=== PATIENT | female | born 1945 | race African-American/Black ===

== ENCOUNTER 2016-12-03 10:36 | Day surgery (SDC) | payer MEDICARE, MEDICAID ==
[2016-12-03] MEDS ORDERED: Pembrolizumab 200 MG in Sodium Chloride 0.9% 250 ML 250 ML IV SCH (11:00)
[2016-12-03 11:03] VITALS: BP 102/71
[2016-12-03] MEDS ORDERED: Sodium Chloride 0.9% 20 ML ONE (12:13)
== END 2016-12-03 12:30 | disposition home or self-care (01) ==
LOC: ONC/OP 10:36
PROVIDERS: ATTEND Internal Medicine Medical Oncology
DX: Z51.11 Encounter for antineoplastic chemotherapy (principal); C34.31 Malignant neoplasm of lower lobe, right bronchus or lung; C34.11 Malignant neoplasm of upper lobe, right bronchus or lung; C34.12 Malignant neoplasm of upper lobe, left bronchus or lung; M06.9 Rheumatoid arthritis, unspecified; I10 Essential (primary) hypertension; E78.00 Pure hypercholesterolemia, unspecified; M10.9 Gout, unspecified; J45.909 Unspecified asthma, uncomplicated; F32.9 Major depressive disorder, single episode, unspecified; F41.9 Anxiety disorder, unspecified; K21.9 Gastro-esophageal reflux disease without esophagitis; E03.9 Hypothyroidism, unspecified; I73.9 Peripheral vascular disease, unspecified; F17.210 Nicotine dependence, cigarettes, uncomplicated; Z79.52 Long term (current) use of systemic steroids; Z79.899 Other long term (current) drug therapy; Z88.5 Allergy status to narcotic agent; Z96.643 Presence of artificial hip joint, bilateral
CPT/HCPCS: 36415; 80053; 82248; 83615; 84100; 84443; 84550; 96413; A4216; J7050; J9271

== ENCOUNTER 2016-12-24 14:08 | Day surgery (SDC) | payer MEDICARE, MEDICAID ==
[2016-12-24] MEDS ORDERED: Pembrolizumab 200 MG in Sodium Chloride 0.9% 250 ML 250 ML IV SCH (14:30)
[2016-12-24] MEDS ORDERED: Sodium Chloride 0.9% 20 ML ONE (14:39)
== END 2016-12-24 16:28 | disposition home or self-care (01) ==
LOC: ONC/OP 14:08
PROVIDERS: ATTEND Internal Medicine Medical Oncology
DX: Z51.11 Encounter for antineoplastic chemotherapy (principal); C34.90 Malignant neoplasm of unspecified part of unspecified bronchus or lung; J45.909 Unspecified asthma, uncomplicated; E78.00 Pure hypercholesterolemia, unspecified; E07.9 Disorder of thyroid, unspecified; M10.9 Gout, unspecified; M06.9 Rheumatoid arthritis, unspecified; F17.200 Nicotine dependence, unspecified, uncomplicated; K21.9 Gastro-esophageal reflux disease without esophagitis; F32.9 Major depressive disorder, single episode, unspecified; F41.9 Anxiety disorder, unspecified; R03.0 Elevated blood-pressure reading, without diagnosis of hypertension; Z88.5 Allergy status to narcotic agent; Z79.899 Other long term (current) drug therapy
CPT/HCPCS: 36415; 80053; 82248; 83615; 84100; 84443; 84550; 96365; A4216; J7050; J9271

== ENCOUNTER 2017-01-14 13:57 | Day surgery (SDC) | payer MEDICARE, MEDICAID ==
[2017-01-14] MEDS ORDERED: Pembrolizumab 200 MG in Sodium Chloride 0.9% 250 ML 250 ML IV SCH (14:15)
== END 2017-01-14 16:34 | disposition home or self-care (01) ==
LOC: ONC/OP 13:57
PROVIDERS: ATTEND Internal Medicine Medical Oncology
DX: Z51.11 Encounter for antineoplastic chemotherapy (principal); C34.90 Malignant neoplasm of unspecified part of unspecified bronchus or lung; E78.00 Pure hypercholesterolemia, unspecified; J45.909 Unspecified asthma, uncomplicated; M06.9 Rheumatoid arthritis, unspecified; M10.9 Gout, unspecified; J44.9 Chronic obstructive pulmonary disease, unspecified; E07.9 Disorder of thyroid, unspecified; K21.9 Gastro-esophageal reflux disease without esophagitis; R03.0 Elevated blood-pressure reading, without diagnosis of hypertension; F32.9 Major depressive disorder, single episode, unspecified; F41.9 Anxiety disorder, unspecified; F17.200 Nicotine dependence, unspecified, uncomplicated; Z88.5 Allergy status to narcotic agent; Z88.8 Allergy status to other drugs, medicaments and biological substances; Z79.899 Other long term (current) drug therapy; E03.8 Other specified hypothyroidism
CPT/HCPCS: 36415; 80053; 82248; 83615; 84100; 84443; 84550; 96413; J7050; J9271

== ENCOUNTER 2017-02-04 14:22 | Day surgery (SDC) | payer MEDICARE, MEDICAID ==
[2017-02-04] MEDS ORDERED: Pembrolizumab 200 MG in Sodium Chloride 0.9% 250 ML 250 ML IV SCH (15:00)
== END 2017-02-04 16:30 | disposition home or self-care (01) ==
LOC: ONC/OP 14:22
PROVIDERS: ATTEND Internal Medicine Medical Oncology
DX: Z51.11 Encounter for antineoplastic chemotherapy (principal); C34.90 Malignant neoplasm of unspecified part of unspecified bronchus or lung; E78.00 Pure hypercholesterolemia, unspecified; R03.0 Elevated blood-pressure reading, without diagnosis of hypertension; K21.9 Gastro-esophageal reflux disease without esophagitis; M06.9 Rheumatoid arthritis, unspecified; M10.9 Gout, unspecified; J45.909 Unspecified asthma, uncomplicated; J44.9 Chronic obstructive pulmonary disease, unspecified; E07.9 Disorder of thyroid, unspecified; Z88.5 Allergy status to narcotic agent; Z88.8 Allergy status to other drugs, medicaments and biological substances
CPT/HCPCS: 36415; 80053; 82248; 83615; 84100; 84443; 84550; 96413; J7050; J9271

== ENCOUNTER 2017-02-24 08:01 | Outpatient (CLI) | payer MEDICARE, MEDICAID ==
--- NOTE | 2017-02-24 09:28 | CT ---
CT CHEST WITH CONTRAST: History: Multifocal lung cancer. Re-staging. Comparison: 08-20-16, PET scan 09-08-16. FINDINGS: Lungs remain hyperinflated with scattered emphysematous bullae. Old ununited left rib fractures are a gain demonstrated. The lobular nodular in the right upper lobe has decreased in size from the prior study, now measuring 0.6 cm greatest diameter. The large mass involving the posterior medial aspect of the right upper lo be has decreased to 7.2 x 5.3 cm greatest diameters on the axial images. The lobulated mass at the an terior medial aspect of the left upper lobe has significantly decreased in a size. A 1.6 cm oval nodu le remains within an area of parenchymal scarring at this site. No new lung nodules are apparent. There is calcification in the arterial structures. Within the parti ally visualized upper abdomen, right renal cyst and surgical absence of the gallbladder are again dem onstrated. Adrenal glands are within normal limits. IMPRESSION: 1. Significant interval improvement with decrease in size of bilateral lung masses. No new abnormalit ies are demonstrated. 2. Atherosclerosis. POS: [facility]
== END 2017-02-24 08:02 | disposition home or self-care (01) ==
LOC: CT 08:01
PROVIDERS: ATTEND Internal Medicine Medical Oncology
DX: C34.90 Malignant neoplasm of unspecified part of unspecified bronchus or lung (principal); I70.90 Unspecified atherosclerosis
CPT/HCPCS: 71260

== ENCOUNTER 2017-02-25 14:02 | Day surgery (SDC) | payer MEDICARE, MEDICAID ==
[2017-02-25] MEDS ORDERED: Pembrolizumab 200 MG in Sodium Chloride 0.9% 250 ML 250 ML IV SCH (14:15)
== END 2017-02-25 17:21 | disposition home or self-care (01) ==
LOC: ONC/OP 14:02
PROVIDERS: ATTEND Internal Medicine Medical Oncology
DX: Z51.11 Encounter for antineoplastic chemotherapy (principal); C34.90 Malignant neoplasm of unspecified part of unspecified bronchus or lung; M06.9 Rheumatoid arthritis, unspecified; M10.9 Gout, unspecified; J45.909 Unspecified asthma, uncomplicated; J44.9 Chronic obstructive pulmonary disease, unspecified; F32.9 Major depressive disorder, single episode, unspecified; K21.9 Gastro-esophageal reflux disease without esophagitis; E07.9 Disorder of thyroid, unspecified; I10 Essential (primary) hypertension; E78.00 Pure hypercholesterolemia, unspecified; F17.200 Nicotine dependence, unspecified, uncomplicated; Z79.52 Long term (current) use of systemic steroids; Z79.899 Other long term (current) drug therapy; Z88.6 Allergy status to analgesic agent; Z88.5 Allergy status to narcotic agent
CPT/HCPCS: 36415; 80053; 82248; 83615; 84100; 84443; 84550; 96413; J7050; J9271

== ENCOUNTER 2017-03-17 09:46 | Day surgery (SDC) | payer MEDICARE, MEDICAID ==
[2017-03-17] MEDS ORDERED: Sodium Chloride 0.9% 20 ML ONE (10:02)
[2017-03-17 10:08] VITALS: BP 113/64; TEMP 99
[2017-03-17] MEDS ORDERED: Pembrolizumab 200 MG in Sodium Chloride 0.9% 250 ML 250 ML IV SCH (10:15)
== END 2017-03-17 13:48 | disposition home or self-care (01) ==
LOC: ONC/OP 09:46
PROVIDERS: ATTEND Internal Medicine Medical Oncology
DX: Z51.11 Encounter for antineoplastic chemotherapy (principal); C34.90 Malignant neoplasm of unspecified part of unspecified bronchus or lung; I10 Essential (primary) hypertension; M10.9 Gout, unspecified; J44.9 Chronic obstructive pulmonary disease, unspecified; M06.9 Rheumatoid arthritis, unspecified; F41.9 Anxiety disorder, unspecified; F32.9 Major depressive disorder, single episode, unspecified; K21.9 Gastro-esophageal reflux disease without esophagitis; E07.9 Disorder of thyroid, unspecified; F17.210 Nicotine dependence, cigarettes, uncomplicated; Z88.5 Allergy status to narcotic agent; Z88.8 Allergy status to other drugs, medicaments and biological substances; Z79.52 Long term (current) use of systemic steroids; Z79.899 Other long term (current) drug therapy
CPT/HCPCS: 36415; 80053; 82248; 83615; 84100; 84436; 84443; 84550; 96413; A4216; J7050; J9271

== ENCOUNTER 2017-04-07 12:13 | Day surgery (SDC) | payer MEDICARE, MEDICAID ==
[2017-04-07] MEDS ORDERED: Pembrolizumab 200 MG, Admixture Fee 1 EACH in Sodium Chloride 0.9% 250 ML 250 ML IV SCH (12:30)
[2017-04-07] MEDS ORDERED: Sodium Chloride 0.9% 20 ML ONE (12:33)
[2017-04-07 16:12] VITALS: BP 100/67; TEMP 98.3
== END 2017-04-07 16:13 | disposition home or self-care (01) ==
LOC: ONC/OP 12:13
PROVIDERS: ATTEND Internal Medicine Medical Oncology
DX: Z51.11 Encounter for antineoplastic chemotherapy (principal); C34.90 Malignant neoplasm of unspecified part of unspecified bronchus or lung; E78.00 Pure hypercholesterolemia, unspecified; M06.9 Rheumatoid arthritis, unspecified; M10.9 Gout, unspecified; J45.909 Unspecified asthma, uncomplicated; K21.9 Gastro-esophageal reflux disease without esophagitis; E07.9 Disorder of thyroid, unspecified
CPT/HCPCS: 36415; 80053; 82248; 83615; 84100; 84443; 84550; 96413; A4216; J7050; J9271

== ENCOUNTER 2017-04-25 22:18 | Inpatient (IN) | payer MEDICARE, MEDICAID ==
[2017-04-25] MEDS ORDERED: Succinylcholine Chloride 20 MG/ML 10 ml SYRINGE FS ONE (22:28)
[2017-04-25] MEDS ORDERED: Midazolam HCl 2 mg/2 ml Vial ONE (22:28)
[2017-04-25 22:53] LABS: ALT (SGPT) 17 U/L (8-55); AST (SGOT) 27 U/L (5-34); Albumin 2.9 g/dL (3.4-4.8); Alkaline Phosphatase 87 U/L (40-150); Anion Gap 17 mmol/L (10-20); BUN (Urea Nitrogen) 38 mg/dL (9.8-20.1); Bilirubin, Total 0.3 mg/dL (0.2-1.2); Calc. Creatinine Clearance 0 mL/min (70-130); Calcium 8.8 mg/dL (7.8-10.44); Carbon Dioxide 21 mmol/L (23-31); Chloride 109 mmol/L (98-107); Estimated GFR-MDRD 49; Globulin 2.4 g/dL (2.4-3.5); Glucose 86 mg/dL (80-115); Potassium 4.2 mmol/L (3.5-5.1); Protein, Total 5.3 g/dL (6.0-8.3); Sodium 143 mmol/L (136-145)
[2017-04-25 22:58] LABS: Troponin I 0.038 ng/mL (< 0.028)
[2017-04-25 23:02] LABS: Band 1 % (5-11); Bite Cells SLIGHT = 2-5 cells (100X) (0-1/hpf); Hemoglobin 10.7 g/dL (12.0-16.0); Lymphocytes 9 % (21-51); MDiff Complete? YES; Macrocytosis SLIGHT = 6-15 cells (100X) (0-5/hpf); Mean Corpuscular HGB CONC 30.7 g/dL (32.0-36.0); Mean Corpuscular Hemoglobin 31.1 pg (27.0-31.0); Mean Platelet Volume 7.4 fL (7.4-10.4); Metamyelocyte 5 % (0-0); Monocytes 10 % (0-10); Myelocyte 1 % (0-0); Neutrophil 74 % (42-75); Ovalocytes SLIGHT = 2-5 cells (100X) (0-1/hpf); PLT Morphology Comment Appears Adequate; Platelet Count 142 thou/uL (130-400); RBC Distribution Width 15.7 % (11.5-14.5); Red Blood Cell (RBC) Count 3.46 mill/uL (4.20-5.40); White Blood Cell (WBC) Count 11.6 thou/uL (4.8-10.8)
[2017-04-25 23:07] LABS: CKMB 66.8 ng/mL (0-6.6)
[2017-04-25 23:08] LABS: INR-International Normal Ratio 1.3; PTT 32.1 SEC (22.9-36.1); Prothrombin Time 16.1 SEC (12.0-14.7)
[2017-04-25 23:10] LABS: Bilirubin Small (Negative); Blood, Urine Negative (Negative); Clarity CLOUDY (Clear); Glucose, Urine (Dipstick) Negative (Negative); Leukocyte Negative (Negative); Nitrite Negative (Negative); Protein, Urine (Dipstick) 30 mg/dL (Neg-Trace); Specific Gravity, Urine 1.029 (1.002-1.036)
[2017-04-25 23:12] LABS: Bacteria/HPF None Seen HPF (None Seen); RBC/HPF 0-3 HPF (0-3); WBC/HPF 0-3 HPF (0-3); Yeast-AUWi Flag 8.1 (0-25.0)
[2017-04-25 23:13] LABS: Pathc Cast-AUWi Flag 19.78 (0-2.49)
[2017-04-25] MEDS ORDERED: Fentanyl 100 MCG/2 ML VIAL ONE (23:13)
[2017-04-25] MEDS ORDERED: Fentanyl CADD 250 ML ONE (23:17)
--- NOTE | 2017-04-25 23:21 | RAD ---
PORTABLE CHEST: Date: 04/25/17 HISTORY: Assess endotracheal tube. History of sepsis. ET tube placement. FINDINGS/IMPRESSION: ET tube has been placed and tip is at the jethro. NG tube has been placed and the tip appears to resi de in the lower esophagus. Heart is enlarged. There is mild vascular congestion. Patient is rotated which distorts and mildly de grades the study. I cannot exclude hazy infiltrate in the right lower lung and I cannot exclude right effusion. POS: [facility]
[2017-04-25 23:23] LABS: Hyaline Casts/LPF >50 HYALINE CAST LPF (0-3 Hyaline)
--- NOTE | 2017-04-25 23:23 | RAD ---
PORTABLE SUPINE CHEST: Date: 04/25/17 HISTORY: Post ET tube adjustment. COMPARISON: Film from 2257 hours. FINDINGS/IMPRESSION: ET tube appears to have been slightly retracted. NG tube is again noted. The tip continues to probabl y reside in the distal esophagus, not well delineated. There is right lung infiltrate and right side effusion. Mild cardiomegaly and mild vascular congestio n. Numerous tiny densities overlie the left upper chest and left lower neck. These appear to be either s kin related or extraneous. POS: [facility]
[2017-04-25] MEDS ORDERED: Piperacillin/Tazobactam 4.5 GM in Sodium Chloride 0.9% 100 ML IVPB SCH (23:30)
[2017-04-25] MEDS ORDERED: Lidocaine 1% (PF) 30 ML VIAL ONE (23:53)
[2017-04-25 23:58] LABS: CO2 Tension 48.7 mmHg (35.0-45.0); O2 Tension (PaO2) 81.7 mmHg (80.0-100.0); pH, Arterial 7.25 (7.35-7.45)
[2017-04-25 23:59] LABS: Analyzer IN Cardio ER; Calcium, Ionized 1.2 mmol/L (1.12-1.30); Hematocrit-ABG 31.7 % (36.0-47.0)
[2017-04-26] LABS: ALV-art Gradient 285.225 (0-20); Puncture Site LBA
[2017-04-26] MEDS ORDERED: Sedation Protocol FS ONE (01:34)
[2017-04-26] MEDS ORDERED: Ventilator Sedation Protocol 1 EACH FS ONE (01:34)
--- NOTE | 2017-04-26 02:06 | PDOC.EVN ---
Event Note - Event Note Event Note: Attending note. 71 y/o female more confused, fatigued, with cough and congestion per daughter. Was unable to get out of bed today and was brought to the ED where she was subsequently intubated. No reported fevers or chills. Extensive PMH, which includes RA, lung CA on immunotherapy. ROS otherwise unable to be completed. Labs and imaging reviewed. Await read on CXR, may need to reposition CVC. A/P: 71 y/o female with Septic shock 2/2 CAP with ДМИТРИЙ, elevated TnI -titrate levo to MAP 65, s/p IVFB -Continue vanc/zosyn, d/c levo -flu negative, no reported flu contacts -VBG from CVC in 1 hour Acute hypoxic respiratory failure -repeat BG in 1 hour -lung protective strategy -POCUS sono of lung reveals hepatization, no drainable effusion, +lung sliding on right RA -hold any meds Lung CA -patient remains full code per family Poor prognosis, tenuous patient. Discussed with family to expect a potentially long ICU course. 45 minutes critical care time.
[2017-04-26] MEDS ORDERED: fentaNYL Citrate/PF 2,000 MCG in Sodium Chloride 0.9% 60 ML IV SCH (02:20)
[2017-04-26] MEDS ORDERED: Propofol 1,000 MG/100 ML VIAL IV PRN (02:20)
[2017-04-26] MEDS ORDERED: Morphine 2 MG/ML SYRINGE SLOW IVP PRN (02:20)
[2017-04-26] MEDS ORDERED: DISCONTINUE PREVIOUS NARCOTIC PAIN MEDICATIONS AND BENZODIAZEPINES FS SCH (02:20)
[2017-04-26] MEDS ORDERED: Fentanyl BOLUS 250 ML IVPB PRN (02:20)
[2017-04-26] MEDS ORDERED: Lorazepam 2 MG/ML VIAL SLOW IVP PRN (02:20)
--- NOTE | 2017-04-26 02:25 | PDOC.FPRHP ---
- History of Present Illness Chief Complaint: Unresponsive History of Present Illness: Pt seen @ 0145 04/26 71 yo F w/ pmh of stage iv lung ca on keytruda was brought to ED via EMS after becoming more and more difficult to arouse and noted AMS by family. In ambulance she was found to be hypotensive and tachycardic and difficult to arouse, was given IVF via a lt humerus IO IV placed at that time. In the ED she was found to be in respiratory failure and was intubated. Rt subclavian central line access was obtained and she was started on a levophed drip for persistent pressures in the 80s/40s. Additionally found to have rll infiltrate and was given vanc, zosyn, levaquin. ED Course: Vanc Zosyn Levaquin 2LNS Intubated Levophed gtt - Allergies/Adverse Reactions Allergies Allergy/AdvReac Type Severity Reaction Status Date / Time tramadol Allergy Mild Rash Verified 09/17/16 08:52 - Home Medications Medication Instructions Recorded Confirmed Type Amlodipine Besylate [amLODIPine 10 mg PO DAILY 06/01/13 09/17/16 History Besylate] Furosemide 20 mg PO DAILY 06/01/13 09/17/16 History Meclizine HCl 25 mg PO Q6HR PRN 06/01/13 09/17/16 History Ranitidine HCl 150 mg PO BID 06/01/13 09/17/16 History Diclofenac Potassium 50 mg PO BID 03/16/16 09/17/16 History Hydroxychloroquine Sulfate 200 mg PO BID 03/16/16 09/17/16 History [Plaquenil] Levothyroxine Sodium 112 mcg PO DAILY 03/16/16 09/17/16 History predniSONE 5 mg PO DAILY 03/16/16 09/17/16 History tiZANidine HCl [Tizanidine HCl] 2 mg PO BID PRN 03/16/16 09/17/16 History Acetaminophen W/ Codeine [Tylenol 1 tab PO Q4HR 09/17/16 09/17/16 History #3] Cholecalciferol (Vitamin D3) 50,000 unit PO ASDIR 09/17/16 09/17/16 History [Vitamin D] Citalopram Hydrobromide 20 mg PO DAILY 09/17/16 09/17/16 History [Citalopram HBr] Etanercept [Enbrel] 50 mg SC Q7DAYS 09/17/16 09/17/16 History Pravastatin Sodium [Pravachol] 40 mg PO HS 09/17/16 09/17/16 History - History PMHx:stage iv lung ca, tobacco abuse PSHx: none FHx: NA Social: current smoker, unknown alcohol, unknown drugs - Review of Systems ROS unobtainable: due to endotracheal tube (remainder reported by family) General: denies: fever/chills Respiratory: reports: cough. denies: congestion, shortness of breath Cardiovascular: denies: chest pain, palpitation Gastrointestinal: denies: abdominal pain - Vital signs BP: 90/60 HR: 78 RR: 16 vent Tmax: 95 low Pox: 100% on ventilator Wt: 60kg - Physical Exam Constitutional: other (sedated, intubated) HEENT: conjunctiva clear, no scleral icterus, MMM, other (pinpoint pupils) Heart: RRR, normal S1/S2, no murmurs/rubs/gallops, pulses present Lungs: no respiratory distress, good air movement, no rales/rhonchi, other ( diminished breath sounds RLL) Abdomen: soft, non-tender, bowel sounds present, no masses/distention Musculoskeletal: other (sedated, unable to assess) Neurological: other (No focal deficit, pinpoint pupils, sedated) Skin: no rash/lesions, capillary refill <2 seconds Heme/Lymphatic: no unusual bruising or bleeding FMR H&P: Results - Labs Result Diagrams: 04/25/17 22:24 04/25/17 22:24 Lab results: WBC 11.6 thou/uL (4.8-10.8) H 04/25/17 22:24 Hgb 10.7 g/dL (12.0-16.0) L 04/25/17 22:24 Hct 35.0 % (36.0-47.0) L 04/25/17 22:24 MCV 101.0 fl (81.0-99.0) H 04/25/17 22:24 Plt Count 142 thou/uL (130-400) 04/25/17 22:24 Band Neuts % (Manual) 1 % (5-11) L 04/25/17 22:24 ABG pH 7.25 (7.35-7.45) L* 04/25/17 23:30 ABG pCO2 48.7 mmHg (35.0-45.0) H 04/25/17 23:30 ABG pO2 81.7 mmHg (80.0-100.0) 04/25/17 23:30 Sodium 143 mmol/L (136-145) 04/25/17 22:24 Potassium 4.2 mmol/L (3.5-5.1) 04/25/17 22:24 Chloride 109 mmol/L (98-107) H 04/25/17 22:24 Carbon Dioxide 21 mmol/L (23-31) L 04/25/17 22:24 BUN 38 mg/dL (9.8-20.1) H 04/25/17 22:24 Creatinine 1.30 mg/dL (0.6-1.1) H 04/25/17 22:24 Glucose 86 mg/dL (80-115) 04/25/17 22:24 Lactic Acid 4.1 mmol/L (0.5-2.2) H* 04/25/17 22:24 Calcium 8.8 mg/dL (7.8-10.44) 04/25/17 22:24 Total Bilirubin 0.3 mg/dL (0.2-1.2) 04/25/17 22:24 AST 27 U/L (5-34) 04/25/17 22:24 ALT 17 U/L (8-55) 04/25/17 22:24 Alkaline Phosphatase 87 U/L (40-150) 04/25/17 22:24 Creatine Kinase 285 U/L (29-168) H 04/25/17 22:53 CK-MB (CK-2) 66.8 ng/mL (0-6.6) H* 04/25/17 22:24 Serum Total Protein 5.3 g/dL (6.0-8.3) L 04/25/17 22:24 Albumin 2.9 g/dL (3.4-4.8) L 04/25/17 22:24 Lipase 5 U/L (8-78) L 04/25/17 22:53 Urine Ketones Negative mg/dL (Negative) 04/25/17 23:04 Urine Blood Negative (Negative) 04/25/17 23:04 Urine Nitrite Negative (Negative) 04/25/17 23:04 Ur Leukocyte Esterase Negative (Negative) 04/25/17 23:04 Urine RBC 0-3 HPF (0-3) 04/25/17 23:04 Urine WBC 0-3 HPF (0-3) 04/25/17 23:04 Ur Squamous Epith Cells 7-10 HPF (0-3) H 04/25/17 23:04 Urine Bacteria None Seen HPF (None Seen) 04/25/17 23:04 - EKG Interpretation EKG: Too much artifact, unreadable. Will repeat. - Radiology Interpretation Chest x-ray Status: report reviewed by me Additional comment: RLL infiltrate and effusion FMR H&P: A/P - Problem List (1) Septic shock Current Visit: Yes Status: Acute Code(s): A41.9 - SEPSIS, UNSPECIFIED ORGANISM; R65.21 - SEVERE SEPSIS WITH SEPTIC SHOCK (2) Respiratory failure Current Visit: Yes Status: Acute Code(s): J96.90 - RESPIRATORY FAILURE, UNSP , UNSP W HYPOXIA OR HYPERCAPNIA (3) Pneumonia Current Visit: Yes Status: Acute Code(s): J18.9 - PNEUMONIA, UNSPECIFIED ORGANISM (4) Acute kidney injury Current Visit: Yes Status: Acute Code(s): N17.9 - ACUTE KIDNEY FAILURE, UNSPECIFIED (5) Elevated troponin Current Visit: Yes Status: Acute Code(s): R74.8 - ABNORMAL LEVELS OF OTHER SERUM ENZYMES (6) Leukocytosis Current Visit: Yes Status: Acute Code(s): D72.829 - ELEVATED WHITE BLOOD CELL COUNT, UNSPECIFIED (7) Lactic acidosis Current Visit: Yes Status: Acute Code(s): E87.2 - ACIDOSIS - Plan Pt will be admitted to ICU for septic shock 2/2 rll pneumonia. Continued on levophed gtt for map > 65. Continue vancomycin and zosyn. Continue IVFNS @ 125, trend lactic acid. For respiratory failure, vent and sedation per protocol. Troponins trend. Elevated ckmb likley 2/2 septic shock/respiratory failure. Lovenox and pepcid for ppx. Disposition/LOS: serious, >/= 2 days. Symptomatic meds will be provided. FMR H&P: Upper Level - Pertinent history Patient is a 71yo AAF with PMHx of Stage IV lung ca, COPD, RA, HTN and HLD who presents with altered mental status. Family at bedside who report that she woke up this AM not herself and was complaining of bone pain everywhere and not wanting to eat or drink anything. States that this is normal for her though and she occasionally acts this way. However, she worsened throughout the day and was not able to get out of bed all. In addition, she was not able to say her name or where she was which she can normally do. Thus, EMS was called and she was brought to the ED where she was subsequently intubated. Family reports she has had cough over the past few days, but no fevers, chills, shortness of breath or chest pain. - Pertinent findings Vitals: BP: 85/62, HR: 76, RR: 16, O2 sat: 97% on vent Gen: thin, NAD HEENT: MMM, poor dentition Heart: S1 S2, RRR Resp: CTAB Abdomen: soft nontender Musk: maew Ext: no cyanosis or edema - Plan Date/Time: 04/26/17223 Phuc Velarde, have evaluated this patient and agree with findings/plan as outlined by human resource intern resident. Pertinent changes/additions are listed here. 1. Septic Shock 2/2 CAP: Admit to CCU. CXR showing RLL infiltrate.Flu negative and family denies any sick contacts. Given Levaquin, Zosyn and Vanc in the ED. Cont Zosyn and Vanc. Urine and blood cultures pending. S/p 2L bolus NS. Cont IVF. Cont levophed gtt and titrate to MAP of 65. 2. Acute Respiratory Failure: 2/2 CAP. Patient currently intubated. Vent setting adjusted. Obtain ABG in 1hr. 3. Lactic acidosis: initial lactate of 4.1. S/p 2L bolus of NS. Cont IVF and monitor q2H. 4. Stage IV Lung Ca: followed by Dr. Marrero and currently on keytruda. Continues to smoke. 5. Elevated CK-MB: likely 2/2 #1. CK-MB of 66.8. EKG without any acute changes but marked artifact. Cont to trend q3H and repeat EKG. 6. Indeterminate trop: see #6 7. ДМИТРИЙ: likely pre-renal. Cont IVF. 8. Macrocytic Anemia: likely 2/2 tobacco abuse. Obtain B12 and RBC folate. 9. HTN: hold home amlodipine 10. COPD: not on any meds per [facility] records. 11. RA: hold home plaquenil 12. Depression: hold home celexa and mirtazapine 13. Hypothyroidism: synthroid dose recently inc to synthroid 125mcg this past Wednesday by PCP but has not gotten rx filled yet 14. Diet: NPO 15. PPX: lovenox 16. Code Status: Full Attending Addendum - Attending Addendum Date/Time: 04/26/17 0846, patient seen in the ED. I personally evaluated the patient and discussed the management with Dr. Lion and Efrain. I agree with the History, Examination, Assessment and Plan documented above with any addition or exceptions in my event note.
[2017-04-26 02:33] LABS: Troponin I 0.047 ng/mL (< 0.028)
[2017-04-26 03:26] LABS: Lactic Acid 3.2 mmol/L (0.5-2.2)
[2017-04-26 03:41] LABS: Troponin I 0.057 ng/mL (< 0.028)
[2017-04-26 03:43] LABS: CKMB 72.7 ng/mL (0-6.6)
[2017-04-26] MEDS: Sodium Chloride 0.9% 1,000 ML IV SCH ×3 (03:58→13:41)
[2017-04-26 04:06] LABS: Analyzer IN Cardio ER; pH (venous) 7.33 (7.35-7.45)
[2017-04-26 04:07] LABS: Actual Bicarbonate (HCO3v) 22 mEq/L (22-26); Base Excess -3.5 mEq/L (0 (+/- 2.5)); Hematocrit-VBG 35.3 % (35-47); Hemoglobin (Hb) 10.8 g/dL (11.7-16.1); Potassium - ABG Lab 4.4 mmol/L (3.70-5.30); Sodium 141.7 mmol/L (133-146)
[2017-04-26 04:08] LABS: Calcium, Ionized 1.15 mmol/L (1.16-1.32); Chloride (ABG LAB) 104 mmol/L (98-106)
[2017-04-26] MEDS: Norepinephrine 8 MG/0.9% NS 250 ML IVPB PRN ×3 (06:30→18:38)
[2017-04-26] MEDS: Piperacillin/Tazobactam 3.375 GM in Sodium Chloride 0.9% 100 ML IVPB SCH ×3 (07:24→18:30)
[2017-04-26 08:10] LABS: Troponin I 0.065 ng/mL (< 0.028)
[2017-04-26 08:15] LABS: CKMB 52.1 ng/mL (0-6.6)
[2017-04-26 08:26] LABS: Actual Bicarbonate (HCO3a) 22.3 mEq/L (22-26); Base Excess (BEa) -2.7 mEq/L (0 (+/-) 2.5); CO2 Tension 39.4 mmHg (35.0-45.0); Calcium, Ionized 1.2 mmol/L (1.12-1.30); Hematocrit-ABG 35.8 % (36.0-47.0); Hemoglobin (Hb) 11.5 g/dL (12.0-16.0); O2 Tension (PaO2) 66.1 mmHg (80.0-100.0); pH, Arterial 7.37 (7.35-7.45)
[2017-04-26 08:27] LABS: Analyzer IN Cardio ER; Puncture Site LRA
--- NOTE | 2017-04-26 08:29 | CT ---
PRELIMINARY REPORT/[facility]/EMERGENCY AFTER HOURS PROCEDURE: EXAM: CT Head Without Intravenous Contrast EXAM DATE/TIME: Exam ordered 04/26/2017 2:03 AM CLINICAL HISTORY: 71 years old, female; Signs and symptoms; Altered mental status/memory loss; Patient HX: F71 presents to ed C/O AMS, onset unknown. Pt last seen [facility] last night. Ems notes family called to report pt AMS . En route, initial pressure 90/60s, later pressure 71/43. Reports pt opens eyes when asked a questio n. HX stage 4 lung ca. Pt is full code. TECHNIQUE: Axial computed tomography images of the head/brain without intravenous contrast. COMPARISON: No relevant prior studies available. FINDINGS: Brain: Volume loss and chronic small vessel ischemic change. No hemorrhage. Ventricles: Unremarkable. No ventriculomegaly. Bones/joints: Unremarkable. No acute fracture. Soft tissues: Unremarkable. Sinuses: Incidental sinus mucosal thickening present. No fluid levels to indicate sinusitis. Mastoid air cells: Unremarkable as visualized. No mastoid effusion. IMPRESSION: No acute findings. Thank you for allowing us to participate in the care of your patient. Dictated and Authenticated by: Keshawn Hurt MD 04/26/2017 2:13 AM Central Time ([place] & [place]) FINAL REPORT EMERGENT AFTER HOURS NONCONTRAST CT HEAD: DATE: 04/26/17. HISTORY: Altered mental status. History of stage IV lung cancer. COMPARISON: 10/11/07. IMPRESSION: 1. No acute intracranial abnormality is demonstrated. 2. 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 3. Mild sinus disease with mucosal thickening in the ethmoid air cells and to a lesser extent right maxillary antrum and left sphenoid sinus. 4. Findings are in agreement with the preliminary report by [facility]. POS: [facility]
--- NOTE | 2017-04-26 08:52 | RAD ---
PORTABLE AP CHEST XRAY: DATE: 04/26/17. HISTORY: Post central line placement. COMPARISON: 04/25/17. FINDINGS: Endotracheal tube and nasogastric tubes remain in place. The tip of the endotracheal tube overlies t he distal esophagus and should be advanced. There has been interval placement of a right subclavian central venous catheter with the tip overlying the expected location of the cavoatrial junction. Aga in noted is the pleural and parenchymal change at the right lung base probably related to right pleur al effusion and atelectasis. The left lung remains clear. The innumerable punctate radiopaque densi ties again overlie the left upper chest and left axillary region. Cardiac silhouette is enlarged. T he chest is otherwise stable from prior exam. IMPRESSION: 1. Pleural and parenchymal changes again present at the right lung base which are probably related t o right pleural effusion and atelectasis. Superimposed infiltrate is not excluded. 2. Interval placement of a right subclavian central venous catheter without evidence of a pneumothor ax. The remaining lines and tubes are stable in position. 3. Innumerable punctate radiopaque densities overlying the left upper chest and left axillary region stable from prior exam. 4. Dense opacity in the right retrocardiac region which could be related to mass-like density seen o n prior CT thorax on 02/24/18. However, this is difficult to further delineate on this exam. POS: [facility]
--- NOTE | 2017-04-26 12:55 | CON ---
DATE OF CONSULTATION: 04/26/2017 SERVICE: Pulmonary Medicine. REASON FOR CONSULTATION: Respiratory failure. HISTORY OF PRESENT ILLNESS: The patient is a 71-year-old -Thai female with past medical history significant for a widely metastatic lung cancer. She is currently on Keytruda and based on most recent PET scan result, she is going into some sort of remission. It seems that her cancer it is responding to the medication. She was in her usual state of health until she was found to be hypotensive and poorly responsive. She had tachycardia and was difficult to wake up. She was brought to the emergency department. She could not protect her airway. She was found to be hypoxemic and was subsequently intubated. She is on minimal sedation and she is awake and alert. She is cooperative and able to answer all questions. She is moving all 4 extremities comfortably. She currently denies any chest pains, fevers or chills. She is still on a little bit of Levophed, but her blood pressure has firmed up very nicely. She was given broad spectrum antibiotics directed at healthcare associated organisms. PAST MEDICAL HISTORY: 1. Squamous cell carcinoma of the lung, stage 4. 2. Chronic obstructive pulmonary disease, mild. 3. Rheumatoid arthritis. 4. Gout. 5. Dyslipidemia. 6. Hypertension. 7. Peripheral vascular disease. 8. Hypothyroidism. 9. Gastroesophageal reflux disease. 10. Benign positional vertigo. 11. Major depressive disorder. PAST SURGICAL HISTORY: None. FAMILY HISTORY: Positive for diabetes, cancer of the lung, thyroid disease, asthma, kidney disease, high blood pressure, or arthritis. SOCIAL HISTORY: She has a greater than [id number] history of smoking. She does not drink or use any illicit drugs. She denies any exposure to chemicals, dust asbestosis or tuberculosis. ALLERGIES: TRAMADOL and TYLENOL 4. MEDICATIONS: List of her inpatient medications was reviewed. No specific updates were made at this time. REVIEW OF SYSTEMS: This could not be obtained as the patient is currently intubated and sedated. PHYSICAL EXAMINATION: VITAL SIGNS: Afebrile, pulse 94, blood pressure 127/87, respirations 18, saturation 95% on 41% FiO2 and a PEEP of 5. GENERAL: The patient is awake and alert. There is no apparent distress. LUNGS: Excellent air entry. There is no prolonged expiratory phase or wheezing present. Rhonchi are there with diminished breath sounds in the right. HEART: Normal rate and regular. ABDOMEN: Soft, nontender, and nondistended. Bowel sounds are positive. MUSCULOSKELETAL: No cyanosis or clubbing. No pitting in the bilateral lower extremities. NEUROLOGIC: Grossly nonfocal. LABORATORY DATA: WBC 11.6, hemoglobin 10.7, platelets 142,000. Band count is only 1% with 9% lymphocytes and predominantly neutrophils present. INR 1.3, pH 7.37, pCO2 of 39, pO2 66. Basic metabolic profile is otherwise unremarkable. Troponin 0.065 and gently trending/stable. CK-MB is down trending beautifully to 52. Ionized calcium 1.15. Lactate has cleared to 1.7. TSH 7.3, lipase 5. Liver function studies were unremarkable. Creatinine 1.3 and BUN 38. Basic metabolic profile is otherwise unremarkable. Urinalysis is unremarkable. Blood cultures x2 are negative to date. Influenza A and B is negative. IMAGIN. CT of the brain demonstrates no acute cardiopulmonary abnormality. 2. Chest x-ray demonstrates parenchymal changes in the right lung base. There is a possible effusion there, but unlikely given negative ultrasound below. Right subclavian central venous catheter without evidence of pneumothorax. Punctate radiopaque densities overlie the left upper chest and axillary region is stable since prior exam. There is a dense opacity in the retrocardiac region , difficult to delineate clearly. 3. Bedside ultrasound of the right chest demonstrated no significant fluid in the right chest. The liver is extraordinarily high riding. The diaphragm was visualized. There is consolidated lung just above that followed by normal aerated lung in the superior region. ASSESSMENT: 1. Acute hypoxic respiratory failure. 2. Septic shock. 3. Healthcare-associated pneumonia. 4. Non-ST elevation myocardial infarction. 5. Acute kidney injury. PLAN: We will continue her broad spectrum antibiotics. I put the patient on spontaneous breathing trial, but unfortunately, her oxygen saturations dropped a little bit with reducing support. As such, we will leave her on mechanical ventilation for an additional 24 hours. Calcium will be replaced. We will see her and replace electrolytes tomorrow morning. Pulmonary or Critical Care will continue to follow while the patient remains in this location. CRITICAL CARE TIME: 105 minutes. [facility] HOSPITALDamian
[2017-04-26] MEDS: Hydrocortisone Sod Succ/PF 100 mg/2 ml Vial IVP SCH ×2 (13:57→18:34)
[2017-04-26] MEDS: Calcium Gluc 4.6 MEQ/10 ML (100 MG/ML) SLOW IVP SCH ×2 (14:19→20:27)
--- NOTE | 2017-04-26 17:04 | EKG ---
Test Reason : Blood Pressure : / mmHG Vent. Rate : 087 BPM Atrial Rate : 087 BPM P-R Int : 138 ms QRS Dur : 064 ms QT Int : 388 ms P-R-T Axes : 044 019 048 degrees QTc Int : 466 ms Sinus rhythm with Premature atrial complexes Low voltage QRS Nonspecific ST-T changes When compared with ECG of 25-APR-2017 22:23, (Unconfirmed) Premature ventricular complexes are no longer Present Confirmed by DR. Tara BELCHER (3) on 04/26/2017 5:04:19 PM Referred By: RACHNAA Confirmed By:DR. Tara BELCHER
[2017-04-26] MEDS ORDERED: Pancrelipase DR 12000 1 CAP FS PRN (18:55)
[2017-04-26] MEDS ORDERED: Sodium Bicarbonate Tab 325 MG TAB PER TUBE PRN (18:55)
[2017-04-26] MEDS: Hydroxychloroquine Sulfate 200 MG TAB PO SCH (20:27)
[2017-04-26] MEDS ORDERED: Vancomycin HCl 1 GM in Premix Bag 1 BAG IVPB SCH (23:00)
[2017-04-27] MEDS: Hydrocortisone Sod Succ/PF 100 mg/2 ml Vial IVP SCH ×4 (00:43→18:33)
[2017-04-27] MEDS: Piperacillin/Tazobactam 3.375 GM in Sodium Chloride 0.9% 100 ML IVPB SCH ×4 (00:44→18:29)
[2017-04-27 04:44] LABS: Anion Gap 10 mmol/L (10-20); BUN (Urea Nitrogen) 30 mg/dL (9.8-20.1); Calc. Creatinine Clearance 54 mL/min (70-130); Calcium 9.1 mg/dL (7.8-10.44); Carbon Dioxide 26 mmol/L (23-31); Chloride 111 mmol/L (98-107); Estimated GFR-MDRD 72; Glucose 128 mg/dL (80-115); Potassium 4.1 mmol/L (3.5-5.1); Sodium 143 mmol/L (136-145)
[2017-04-27 05:24] LABS: Band 8 % (5-11); Hemoglobin 10.4 g/dL (12.0-16.0); Lymphocytes 5 % (21-51); MDiff Complete? YES; Mean Corpuscular HGB CONC 30.6 g/dL (32.0-36.0); Mean Corpuscular Hemoglobin 29.9 pg (27.0-31.0); Mean Corpuscular Volume 97.6 fl (81.0-99.0); Mean Platelet Volume 7.8 fL (7.4-10.4); Metamyelocyte 1 % (0-0); Monocytes 13 % (0-10); Neutrophil 73 % (42-75); PLT Morphology Comment Appears Adequate; Platelet Count 134 thou/uL (130-400); RBC Distribution Width 15.8 % (11.5-14.5); Red Blood Cell (RBC) Count 3.49 mill/uL (4.20-5.40); White Blood Cell (WBC) Count 13.5 thou/uL (4.8-10.8)
[2017-04-27] MEDS ORDERED: Levothyroxine Sodium 112 MCG TAB PO SCH (06:00)
--- NOTE | 2017-04-27 06:36 | PDOC.FM ---
- Subjective Subjective: Comfortable on the ventilator this morning. She denies any pain or discomfort. - Objective MAR Reviewed: Yes Vital Signs & Weight: Vital Signs (12 hours) Temp Pulse Resp BP Pulse Ox 04/27/17 06:00 8 L 04/27/17 04:00 99.7 F H 04/27/17 03:56 11 L 04/27/17 03:18 102 H 106/75 04/27/17 02:00 9 L 04/27/17 01:29 117 H 111/81 04/27/17 00:00 99.3 F 10 L 04/26/17 22:20 111 H 105/69 04/26/17 22:00 9 L 04/26/17 20:00 99 F 105 H 11 L 96 04/26/17 18:37 106 H 100/69 Weight Admit Weight 60.328 kg Weight 61.6 kg Most Recent Monitor Data Heart Rate from ECG 106 NIBP 111/71 NIBP BP-Mean 79 Respiration from ECG 12 SpO2 93 I&O: 04/25/17 04/26/17 04/27/17 06:59 06:59 06:59 Intake Total 589.7 3105.5 Output Total 140 1627 Balance 449.7 1478.5 Result Diagrams: 04/27/17 03:30 04/27/17 03:30 <Sir Roman - Last Filed: 04/27/17 07:25> - Objective Vital Signs & Weight: Vital Signs (12 hours) Temp Pulse Resp BP 04/27/17 14:34 109 H 04/27/17 12:35 106 H 04/27/17 09:15 109 H 04/27/17 08:07 103 H 04/27/17 08:00 99.2 F 11 L 04/27/17 06:00 8 L 04/27/17 04:00 99.7 F H 04/27/17 03:56 11 L 04/27/17 03:18 102 H 106/75 Weight Admit Weight 60.328 kg Weight 61.6 kg Most Recent Monitor Data Heart Rate from ECG 106 NIBP 121/78 NIBP BP-Mean 93 Respiration from ECG 13 SpO2 91 I&O: 04/26/17 04/27/17 04/28/17 06:59 06:59 06:59 Intake Total 589.7 3105.5 Output Total 140 1627 365 Balance 449.7 1478.5 -365 Result Diagrams: 04/27/17 03:30 04/27/17 03:30 <Aurelia Mehta - Last Filed: 04/27/17 14:49> Phys Exam - Physical Examination Constitutional: NAD HEENT: moist MMs ET tube in place Neck: supple diminished air entry on R, rhonchi on L Cardiovascular: RRR, no significant murmur Gastrointestinal: soft, non-tender, no distention, positive bowel sounds Musculoskeletal: no edema, pulses present Neurological: non-focal, moves all 4 limbs Deviation from normal: answering questions appropriately Skin: normal turgor <Sri Roman - Last Filed: 04/27/17 07:25> Dx/Plan (1) Acute kidney injury Code(s): N17.9 - ACUTE KIDNEY FAILURE, UNSPECIFIED Status: Acute (2) Elevated troponin Code(s): R74.8 - ABNORMAL LEVELS OF OTHER SERUM ENZYMES Status: Acute (3) Lactic acidosis Code(s): E87.2 - ACIDOSIS Status: Acute (4) Leukocytosis Code(s): D72.829 - ELEVATED WHITE BLOOD CELL COUNT, UNSPECIFIED Status: Acute (5) Macrocytic anemia Code(s): D53.9 - NUTRITIONAL ANEMIA, UNSPECIFIED Status: Acute (6) Pneumonia Code(s): J18.9 - PNEUMONIA, UNSPECIFIED ORGANISM Status: Acute (7) Respiratory failure Code(s): J96.90 - RESPIRATORY FAILURE, UNSP, UNSP W HYPOXIA OR HYPERCAPNIA Status: Acute (8) Septic shock Code(s): A41.9 - SEPSIS, UNSPECIFIED ORGANISM; R65.21 - SEVERE SEPSIS WITH SEPTIC SHOCK Status: Acute (9) Hypothyroidism Code(s): E03.9 - HYPOTHYROIDISM, UNSPECIFIED Status: Acute (10) Rheumatoid arthritis Code(s): M06.9 - RHEUMATOID ARTHRITIS, UNSPECIFIED Status: Acute - Plan Plan: 71 yo F with acute hypoxic respiratory failure 2/2 CAP 1. Septic Shock 2/2 CAP - Remains intubated - CXR showing RLL infiltrate - Flu negative and family denies any sick contacts - Given Levaquin, Zosyn and Vanc in the ED - Cont Zosyn and Vanc - Urine and blood cultures pending - Off levophed gtt 2. Acute Respiratory Failure: 2/2 CAP - Patient currently intubated - Appreciate Dr. Louis's assistance 3. Lactic acidosis, resolved 4. Stage IV Lung Ca - Followed by Dr. Marrero and currently on keytruda - Will notify Dr. Marrero she is here - Continues to smoke 5. Elevated CK-MB: likely 2/2 #1 - Downtrending 6. Elevated trop - Will recheck this morning 7. ДМИТРИЙ, resolved 8. Macrocytic Anemia - B12 elevated, RBC folate pending 9. HTN - Hold home amlodipine until stable off pressors 10. COPD - Not on any meds per [facility] records. - Duonebs PRN if they give symptomatic relief 11. RA: - Hold home plaquenil - May resume today 12. Depression - Hold home celexa and mirtazapine, resume once tolerating tube feeds 13. Hypothyroidism - Synthroid dose recently inc to synthroid 125mcg this past Wednesday by PCP - Will start when tolerating tube feeds 14. Diet: HH per OG PPX: lovenox, pepcid <Sri Roman - Last Filed: 04/27/17 07:25> Attending Addendum - Attending Addendum Date/Time: 04/27/17 0445 I personally evaluated the patient and discussed the management with Dr. Roman I agree with the History, Examination, Assessment and Plan documented above with any addition or exceptions noted below. Septic shock- off levophed gtt HCAP- on vanc and zosyn Acute hypoxic resp failure- wean vent per pulm Stage IV lung cancer <Aurelia Mehta Sandhya - Last Filed: 04/27/17 14:49>
[2017-04-27 07:48] LABS: Troponin I 0.067 ng/mL (< 0.028)
[2017-04-27 07:51] LABS: CKMB 26.1 ng/mL (0-6.6)
[2017-04-27] MEDS: Sodium Chloride 0.9% 1,000 ML IV SCH (08:46)
[2017-04-27] MEDS: Hydroxychloroquine Sulfate 200 MG TAB PO SCH ×2 (08:46→21:21)
[2017-04-27] MEDS ORDERED: Prevnar 13-Val Conj/PF 0.5 ML SYRINGE IM ONE (09:00)
[2017-04-27] MEDS ORDERED: Metoclopramide HCl 10 MG/2 ML VIAL IVP SCH (14:00)
[2017-04-27] MEDS ORDERED: Norepinephrine 8 MG in Sodium Chloride 0.9% 250 ML 250 ML IVPB PRN (15:27)
[2017-04-27] MEDS: Metoclopramide 10 MG/10 ML UDCUP PER TUBE SCH ×2 (18:29→21:30)
--- NOTE | 2017-04-27 21:30 | PRG ---
DATE OF SERVICE: 04/27/2017 SERVICE: Pulmonary Medicine. INTERVAL HISTORY: The patient is actually doing much better from an oxygenation standpoint. We will put her on a spontaneous breathing trial. She had episodes of central apnea. Additionally, her oxy gen saturations remain quite marginal on 40% FIO2. She has made significant improvement over the las t 24 hours, but I think 1 additional day on mechanical ventilation would be most appropriate. She re carlyn off of all sedation and is fairly comfortable at this time. PHYSICAL EXAMINATION: VITAL SIGNS: Afebrile with a T-max of 99.7, pulse 106, blood pressure 125/84, respirations 10, satur ation 93% on 37% FIO2 and a PEEP of 5. GENERAL: The patient is awake, but a little somnolent. She wakes up easily with gentle stimulation. She is in no apparent distress and following commands. She denies having shortness of breath or ch est discomfort currently. HEENT: Normocephalic, atraumatic. Sclerae are white, conjunctivae pink. Oral and nasal mucosa is m oist without lesions. LUNGS: Decent air entry. Rhonchi are present as well as inspiratory and expiratory wheezing on the right. These are large airway wheezes. No polyphonic expiratory wheezing is present. No crackles w ere appreciated. HEART: Normal rate, regular. ABDOMEN: Soft, nontender, nondistended. Bowel sounds are positive. MUSCULOSKELETAL: No cyanosis or clubbing. There is no pitting in the bilateral lower extremities. NEUROLOGIC: Grossly nonfocal. LABORATORY DATA: WBC 13.5, hemoglobin 10.4, platelets 134,000. INR 1.3. Creatinine 0.93 and beauti fully down trending, BUN 30, which is also improved. Basic metabolic profile is otherwise unremarkab le. Lactate 1.7. CK-MB is down trended to 26 and the troponin remained stable. BNP is normal. Blo od cultures x2, urine culture and Influenza A and B are unremarkable. ASSESSMENT: 1. Acute hypoxic respiratory failure. 2. Septic shock. 3. Healthcare-associated pneumonia. 4. Non-ST elevation myocardial infarction. 5. Acute kidney injury, resolved. PLAN: We will continue supportive care including antibiotics, and nebulized medications. I will rep eat a spontaneous breathing trial first thing in the morning and at that time, extubation will be con sidered. Pulmonary and Critical Care will continue to follow while the patient remains in this locat ion. CRITICAL CARE TIME: 30 minutes.
[2017-04-27] MEDS: Vancomycin HCl 1 GM in Premix Bag 1 BAG IVPB SCH (22:48)
[2017-04-28] MEDS: Hydrocortisone Sod Succ/PF 100 mg/2 ml Vial IVP SCH ×2 (00:23→06:05)
[2017-04-28] MEDS: Piperacillin/Tazobactam 3.375 GM in Sodium Chloride 0.9% 100 ML IVPB SCH ×4 (00:23→18:11)
[2017-04-28 05:28] LABS: Anion Gap 11 mmol/L (10-20); BUN (Urea Nitrogen) 27 mg/dL (9.8-20.1); Calc. Creatinine Clearance 69 mL/min (70-130); Calcium 9.5 mg/dL (7.8-10.44); Carbon Dioxide 28 mmol/L (23-31); Chloride 113 mmol/L (98-107); Estimated GFR-MDRD Greater than 90; Glucose 181 mg/dL (80-115); Potassium 3.9 mmol/L (3.5-5.1); Sodium 148 mmol/L (136-145)
[2017-04-28 05:45] LABS: Band 1 % (5-11); Hemoglobin 9.9 g/dL (12.0-16.0); Lymphocytes 11 % (21-51); MDiff Complete? YES; Mean Corpuscular HGB CONC 31.5 g/dL (32.0-36.0); Mean Corpuscular Hemoglobin 30.9 pg (27.0-31.0); Mean Corpuscular Volume 98.2 fl (81.0-99.0); Mean Platelet Volume 7.7 fL (7.4-10.4); Metamyelocyte 1 % (0-0); Monocytes 7 % (0-10); Neutrophil 79 % (42-75); PLT Morphology Comment Appears Adequate; Platelet Count 125 thou/uL (130-400); RBC Distribution Width 16.2 % (11.5-14.5); RBC Morphology Normal; Reactive Lymphocytes 1 % (0-10)
[2017-04-28] MEDS: Metoclopramide 10 MG/10 ML UDCUP PER TUBE SCH (06:04)
[2017-04-28] MEDS: Levothyroxine Sodium 125 MCG TAB PO SCH (06:05)
--- NOTE | 2017-04-28 06:42 | PDOC.FM ---
- Subjective Subjective: Ms. Reed is feeling well this morning. She denies any pain or discomfort and is answering questions appropriately. - Objective MAR Reviewed: Yes Vital Signs & Weight: Vital Signs (12 hours) Temp Pulse Resp Pulse Ox 04/28/17 05:56 12 04/28/17 04:00 98.9 F 16 04/28/17 02:00 13 04/28/17 00:00 98.9 F 12 04/27/17 23:41 105 H 14 99 04/27/17 22:00 10 L 04/27/17 20:00 98.9 F 103 H 10 L 94 L Weight Admit Weight 60.328 kg Weight 59.1 kg Most Recent Monitor Data Heart Rate from ECG 98 NIBP 134/91 NIBP BP-Mean 108 Respiration from ECG 14 SpO2 98 I&O: 04/26/17 04/27/17 04/28/17 06:59 06:59 06:59 Intake Total 589.7 3105.5 2701 Output Total 140 1627 1280 Balance 449.7 1478.5 1421 Result Diagrams: 04/28/17 04:35 04/28/17 04:35 <Sri Roman E - Last Filed: 04/28/17 08:51> - Objective Vital Signs & Weight: Vital Signs (12 hours) Temp Pulse Resp BP Pulse Ox 04/28/17 10:58 101 H 22 H 96 04/28/17 10:36 95 04/28/17 09:30 96 127/91 H 04/28/17 08:00 98.4 F 100 15 98 04/28/17 05:56 12 04/28/17 04:00 98.9 F 16 04/28/17 02:00 13 04/28/17 00:00 98.9 F 12 Weight Admit Weight 60.328 kg Weight 59.1 kg Most Recent Monitor Data Heart Rate from ECG 99 NIBP 127/91 NIBP BP-Mean 98 Respiration from ECG 13 SpO2 97 I&O: 04/27/17 04/28/17 04/29/17 06:59 06:59 06:59 Intake Total 3105.5 2701 30 Output Total 1627 1280 130 Balance 1478.5 1421 -100 Result Diagrams: 04/28/17 04:35 04/28/17 04:35 <Aurelia Mehta Sandhya - Last Filed: 04/28/17 12:00> Phys Exam - Physical Examination Constitutional: NAD HEENT: moist MMs ET tube in place Neck: supple Respiratory: no wheezing, clear to auscultation bilateral Cardiovascular: RRR systolic murmur 3/6 on R sternal border Gastrointestinal: soft, non-tender, no distention, positive bowel sounds Musculoskeletal: no edema, pulses present Neurological: non-focal, moves all 4 limbs Psychiatric: normal affect Skin: normal turgor <Sri Roman - Last Filed: 04/28/17 08:51> Dx/Plan (1) Acute kidney injury Code(s): N17.9 - ACUTE KIDNEY FAILURE, UNSPECIFIED Status: Acute (2) Elevated troponin Code(s): R74.8 - ABNORMAL LEVELS OF OTHER SERUM ENZYMES Status: Acute (3) Lactic acidosis Code(s): E87.2 - ACIDOSIS Status: Acute (4) Leukocytosis Code(s): D72.829 - ELEVATED WHITE BLOOD CELL COUNT, UNSPECIFIED Status: Acute (5) Macrocytic anemia Code(s): D53.9 - NUTRITIONAL ANEMIA, UNSPECIFIED Status: Acute (6) Pneumonia Code(s): J18.9 - PNEUMONIA, UNSPECIFIED ORGANISM Status: Acute (7) Respiratory failure Code(s): J96.90 - RESPIRATORY FAILURE, UNSP, UNSP W HYPOXIA OR HYPERCAPNIA Status: Acute (8) Septic shock Code(s): A41.9 - SEPSIS, UNSPECIFIED ORGANISM; R65.21 - SEVERE SEPSIS WITH SEPTIC SHOCK Status: Acute (9) Hypothyroidism Code(s): E03.9 - HYPOTHYROIDISM, UNSPECIFIED Status: Acute (10) Rheumatoid arthritis Code(s): M06.9 - RHEUMATOID ARTHRITIS, UNSPECIFIED Status: Acute - Plan Plan: 71 yo F with acute hypoxic respiratory failure 2/2 CAP 1. Septic Shock 2/2 CAP - Remains intubated - CXR showing RLL infiltrate - Flu negative and family denies any sick contacts - Given Levaquin, Zosyn and Vanc in the ED - Cont Zosyn and Vanc (04/26), will discuss de-escalation today - Urine and blood cultures negative to date - Off levophed gtt 2. Acute Respiratory Failure: 2/2 CAP - Patient currently intubated - Appreciate Dr. Louis's assistance 3. Lactic acidosis, resolved 4. Stage IV Lung Ca - Followed by Dr. Marrero and currently on Keytruda - Notified Dr. Marrero she is here, will consult - Continues to smoke 5. Elevated CK-MB: likely 2/2 #1 - Downtrending 6. Elevated trop - Stable, no chest pain, no EKG changes - Likely 2/2 demand ischemia 7. ДМИТРИЙ, resolved 8. Macrocytic Anemia - B12 elevated, RBC folate pending 9. HTN - Hold home amlodipine until stable off pressors 10. COPD - Not on any meds per [facility] records. - Duonebs PRN if they give symptomatic relief 11. RA: - Home plaquenil 12. Depression - Home celexa and mirtazapine 13. Hypothyroidism - Synthroid dose recently inc to synthroid 125mcg this past Wednesday by PCP 14. Tube feeds PPX: lovenox, pepcid <Sri Roman - Last Filed: 04/28/17 08:51> Attending Addendum - Attending Addendum Date/Time: 04/28/17 1125 I personally evaluated the patient and discussed the management with Dr. Roman I agree with the History, Examination, Assessment and Plan documented above with any addition or exceptions noted below. Septic shock- resolved. off levophed. HCAP- on Vanc and Zosyn. Continue. Acute hypoxic respiratory failure- extubated this am. Patient stable on NC at this time. Stage IV lung ca- onc consulted. -Keep in ICU today to observe post extubation. <Aurelia Mehta - Last Filed: 04/28/17 12:00>
[2017-04-28] MEDS ORDERED: Pantoprazole 40 MG VIAL IVP SCH (09:00)
[2017-04-28] MEDS: Enoxaparin Sodium 40 MG/0.4 ML SYRINGE SC SCH (09:14)
[2017-04-28] MEDS: Sodium Chloride 0.9% 1,000 ML IV SCH (09:14)
[2017-04-28] MEDS: Hydroxychloroquine Sulfate 200 MG TAB PO SCH ×2 (09:28→19:57)
--- NOTE | 2017-04-28 09:49 | RAD ---
CHEST 1 VIEW: HISTORY: Pneumonia, intubation. COMPARISON: Chest 1 view 04/26/17. FINDINGS: The patient was intubated with ventricular tube tip 2.3 cm craniad to the jethro. Enteric tube is in place with tip at the gastric fundus. Large layer right-side pleural effusion is present. There is a nodule in the left mid lung. Central venous catheter tip is at the right atrium. IMPRESSION: No significant change in radiographic appearance of the chest. POS: NELLIE
--- NOTE | 2017-04-28 10:38 | PRG ---
DATE OF SERVICE: 04/28/2017 SERVICE: Pulmonary Medicine. INTERVAL HISTORY: The patient is doing fine from cardiovascular and respiratory standpoint. She is breathing comfortably. She has been off of sedation since yesterday morning. She is wide awake today. She is in no apparent distress. She denies any current fevers, chills, nausea or vomiting. Otherwise, there has been no significant interval change to her condition. PHYSICAL EXAMINATION: VITAL SIGNS: Afebrile, pulse 100, blood pressure 127/91, respirations 13, saturation 97% on 21% FiO2 and a PEEP of 5. GENERAL: The patient is awake, alert, no apparent distress. LUNGS: Decent air entry. There are some rhonchi present, but they clear with cough. No prolonged expiratory phase or wheezing is appreciated. HEART: Normal rate, regular. ABDOMEN: Soft, nontender, nondistended. Bowel sounds are positive. MUSCULOSKELETAL: No cyanosis or clubbing. No pitting in the bilateral lower extremities. NEUROLOGIC: Grossly nonfocal. LABORATORY DATA: Sodium 148, chloride 113. Basic metabolic profile is otherwise unremarkable/stable. Blood cultures x2 are unremarkable. Influenza A and B is negative. Urine culture negative. IMAGING: Chest x-ray demonstrates no significant interval change. There is a central line with the tip at the right atrium. There is a nodule in the left mid lung zone. There appears to be an effusion in the right lung, though previous ultrasound did not confirm this. ASSESSMENT: 1. Acute hypoxic respiratory failure. 2. Septic shock. 3. Healthcare-associated pneumonia. 4. Non-ST elevation myocardial infarction. PLAN: We will continue antibiotics, nebulized medications and steroids. We will put the patient once again on spontaneous breathing trial. If she meets criteria, extubation will be considered. We will give her a little bit of free water over the next 18 hours. Pulmonary Critical Care will continue to follow while the patient remains in this location. Critical care time: 30 minutes. DELORISD
[2017-04-28] MEDS: Dextrose 5% in Water 1,000 ML IV SCH (12:57)
[2017-04-28 14:27] LABS: Folate,Hemolysate 258.8 ng/mL (Not Estab.); Hematocrit 30.8 % (34.0-46.6); RBC Folate Test Component 840 ng/mL (>498)
--- NOTE | 2017-04-28 14:56 | CON ---
DATE OF CONSULTATION: 04/28/2017 REASON FOR CONSULTATION: Lung cancer. HISTORY OF PRESENT ILLNESS: Ms. Reed is a 71-year-old -[place] female, who was diagnosed with squamous cell carcinoma with bilateral multilobar pulmonary masses in 08/2016. At time of diag nosis, she had a 10 x 7 x 5 cm mass in her right lower lobe and a 3.2 x 2.6 x 2.3 mass in the left up per lobe. There was also 1.1 cm spiculated nodule in the right upper lobe. The patient was 95% posi tive for PD-L1. She was started on Keytruda immunotherapy and has remained on there since September. S he has struggled with nutrition and weakness. Over the past few months, she has had frequent pruritu s. However, the Keytruda has shown a definite reduction in the size of the masses. Her last CT scan was in 01/2017. Most recently, she had a cough. She was found with altered mental status at home a nd brought by EMS to the emergency room. She was found hypoxic and intubated for respiratory failure . She was diagnosed with pneumonia and treated with IV antibiotics. She did spend a few days on vas opressors for septic shock. She has now been extubated and is feeling better. PAST MEDICAL HISTORY: 1. 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 2. Rheumatoid arthritis. 3. Hypertension. 4. High cholesterol. 5. Asthma. 6. Chronic obstructive pulmonary disease. 7. Acid reflux. 8. Thyroid disease. 9. Anxiety and depression. PAST SURGICAL HISTORY: Lung biopsy. ALLERGIES: TRAMADOL and TYLENOL. HOME MEDICATIONS: 1. Amlodipine 10 mg daily. 2. Citalopram 20 mg daily. 3. Enbrel 25 mg subcu weekly. 4. Plaquenil 200 mg daily. 5. Levothyroxine 112 mcg daily. 6. Pravastatin 40 mg daily. 7. Prednisone 5 mg daily. 8. Ranitidine 150 mg daily. FAMILY HISTORY: Her sister had lung cancer. SOCIAL HISTORY: Single, has 5 children, lives with her daughter. She is a current everyday smoker. No alcohol or illicit drug use. REVIEW OF SYSTEMS: Twelve-point review of systems is negative except for noted in HPI. PHYSICAL EXAMINATION: VITAL SIGNS: Temperature is 98.4, pulse is 96, respiratory rate 19, BP is 125/84. She is 97% on 2 l iters nasal cannula. GENERAL: This is a thin -[place] female in no acute distress. HEENT: Normocephalic, atraumatic. Pupils equal and reactive to light. NECK: Supple. CARDIOVASCULAR: Regular rate and rhythm. LUNGS: Diminished. ABDOMEN: Soft, nontender, bowel sounds are positive. EXTREMITIES: No clubbing, cyanosis or edema. SKIN: No rash. HEMATOLOGIC: No petechia or purpura. NEUROLOGIC: Nonfocal. PSYCHIATRIC: The patient is alert and oriented and answering questions appropriately. PERTINENT LABORATORY AND X-RAYS: Current WBCs are 9, hemoglobin 9.9, hematocrit 31.4, platelet count 125,000, 80% neutrophils, 1% band, 11% lymphocytes. Sodium is 148, potassium 3.9, chloride 113, CO2 is 28, BUN is 27, creatinine 0.74, calcium is 9.5. CK-MB is 261, troponin 0.067. B12 is 1051. Rec ent chest x-ray showed a large right-sided pleural effusion, and the nodule in the left mid lung. ASSESSMENT: 1. Acute respiratory failure. 2. Pneumonia. 3. Stage IV squamous cell carcinoma of the lung. DISCUSSION: The patient is recovering from her respiratory failure and pneumonia. She remains on an tibiotics. She was recently just extubated this morning and her diet is being advanced slowly. She was due for her Keytruda today. We will allow her recovery from her acute illness, and should she im prove, we will resume it in the outpatient setting. If she is going to a skilled unit or rehabilitat ion facility, we will consider getting Keytruda prior to her discharge from this facility. Thank you for the consult. We will follow her hospital course closely.
[2017-04-28 22:19] LABS: Vancomycin, Trough 6.9 ug/mL
[2017-04-28] MEDS: Vancomycin HCl 1 GM in Premix Bag 1 BAG IVPB SCH (23:37)
[2017-04-29] MEDS: Piperacillin/Tazobactam 3.375 GM in Sodium Chloride 0.9% 100 ML IVPB SCH ×5 (01:07→23:45)
[2017-04-29 05:08] LABS: MDiff Complete? YES; Mean Corpuscular HGB CONC 32.2 g/dL (32.0-36.0); Mean Corpuscular Hemoglobin 30.5 pg (27.0-31.0); Mean Corpuscular Volume 94.8 fl (81.0-99.0); Mean Platelet Volume 7.6 fL (7.4-10.4); Platelet Count 113 thou/uL (130-400); RBC Distribution Width 15.8 % (11.5-14.5); Red Blood Cell (RBC) Count 3.29 mill/uL (4.20-5.40); White Blood Cell (WBC) Count 9.3 thou/uL (4.8-10.8)
[2017-04-29 05:09] LABS: Band 3 % (5-11); Lymphocytes 37 % (21-51); Monocytes 9 % (0-10); Neutrophil 51 % (42-75); Nucleated RBC 1 % (0); PLT Morphology Comment Appears Decreased
[2017-04-29 05:13] LABS: Anion Gap 8 mmol/L (10-20); BUN (Urea Nitrogen) 8 mg/dL (9.8-20.1); Calc. Creatinine Clearance 78 mL/min (70-130); Calcium 9.1 mg/dL (7.8-10.44); Carbon Dioxide 35 mmol/L (23-31); Chloride 104 mmol/L (98-107); Estimated GFR-MDRD Greater than 90; Glucose 87 mg/dL (80-115); Sodium 144 mmol/L (136-145)
[2017-04-29] MEDS: Dextrose 5% in Water 1,000 ML IV SCH ×2 (05:13)
[2017-04-29] MEDS: Levothyroxine Sodium 125 MCG TAB PO SCH (05:14)
[2017-04-29 05:22] LABS: Potassium 2.8 mmol/L (3.5-5.1)
[2017-04-29] MEDS ORDERED: Potassium Chloride 20 MEQ TAB PO SCH ×3 (05:30→21:30)
--- NOTE | 2017-04-29 06:42 | PDOC.FM ---
- Subjective Subjective: Ms. Reed is feeling well this morning and has no complaints. She wants to get up to use the restroom and is agreeable to short term rehab to get stronger. - Objective MAR Reviewed: Yes Vital Signs & Weight: Vital Signs (12 hours) Temp Pulse Resp BP Pulse Ox 04/29/17 05:56 77 16 99 04/29/17 04:02 99.2 F 93 18 126/90 100 04/29/17 00:15 99.2 F 89 18 100 04/28/17 23:53 100 04/28/17 23:49 89 18 97 04/28/17 23:00 99.4 F 04/28/17 19:36 98.3 F 94 21 H 96 04/28/17 19:00 98.3 F Weight Admit Weight 60.328 kg Weight 57.334 kg Most Recent Monitor Data Heart Rate from ECG 96 NIBP 135/90 NIBP BP-Mean 117 Respiration from ECG 7 SpO2 100 I&O: 04/27/17 04/28/17 04/29/17 06:59 06:59 06:59 Intake Total 3105.5 2701 1053 Output Total 1627 1280 4545 Balance 1478.5 1421 3492 Result Diagrams: 04/29/17 04:17 04/29/17 04:17 <Sri Roman - Last Filed: 04/29/17 09:54> - Objective Vital Signs & Weight: Vital Signs (12 hours) Temp Pulse Pulse Pulse Resp BP BP 04/29/17 12:27 81 14 04/29/17 11:45 97.6 F 91 18 04/29/17 09:00 89 89 120/94 H 128/92 H 04/29/17 08:00 99.0 F 96 20 04/29/17 05:56 77 16 04/29/17 04:02 99.2 F 93 18 BP Pulse Ox 04/29/17 12:27 98 04/29/17 11:45 121/88 95 04/29/17 09:00 04/29/17 08:00 128/87 93 L 04/29/17 05:56 99 04/29/17 04:02 126/90 100 Weight Admit Weight 60.328 kg Weight 57.334 kg Most Recent Monitor Data Heart Rate from ECG 96 NIBP 135/90 NIBP BP-Mean 117 Respiration from ECG 7 SpO2 100 I&O: 04/28/17 04/29/17 04/30/17 06:59 06:59 06:59 Intake Total 2701 1053 Output Total 1280 7975 Balance 1421 -3492 Result Diagrams: 04/29/17 04:17 04/29/17 04:17 <Aurelia Mehta - Last Filed: 04/29/17 15:10> Phys Exam - Physical Examination Constitutional: NAD HEENT: moist MMs, sclera anicteric Neck: supple scattered rhonchi, diminished breath sounds in R lung Cardiovascular: RRR systolic murmur /6 Gastrointestinal: soft, non-tender, no distention, positive bowel sounds Musculoskeletal: no edema, pulses present Neurological: non-focal, moves all 4 limbs Psychiatric: normal affect, A&O x 3 Skin: no rash, normal turgor <Sri Roman - Last Filed: 04/29/17 09:54> Dx/Plan (1) Acute kidney injury Code(s): N17.9 - ACUTE KIDNEY FAILURE, UNSPECIFIED Status: Acute (2) Elevated troponin Code(s): R74.8 - ABNORMAL LEVELS OF OTHER SERUM ENZYMES Status: Acute (3) Lactic acidosis Code(s): E87.2 - ACIDOSIS Status: Acute (4) Leukocytosis Code(s): D72.829 - ELEVATED WHITE BLOOD CELL COUNT, UNSPECIFIED Status: Acute (5) Macrocytic anemia Code(s): D53.9 - NUTRITIONAL ANEMIA, UNSPECIFIED Status: Acute (6) Pneumonia Code(s): J18.9 - PNEUMONIA, UNSPECIFIED ORGANISM Status: Acute (7) Respiratory failure Code(s): J96.90 - RESPIRATORY FAILURE, UNSP, UNSP W HYPOXIA OR HYPERCAPNIA Status: Acute (8) Septic shock Code(s): A41.9 - SEPSIS, UNSPECIFIED ORGANISM; R65.21 - SEVERE SEPSIS WITH SEPTIC SHOCK Status: Acute (9) Hypothyroidism Code(s): E03.9 - HYPOTHYROIDISM, UNSPECIFIED Status: Acute (10) Rheumatoid arthritis Code(s): M06.9 - RHEUMATOID ARTHRITIS, UNSPECIFIED Status: Acute - Plan Plan: 71 yo F with acute hypoxic respiratory failure 2/2 CAP 1. Septic Shock /2 CAP - Extubated 04/28 - CXR showing RLL infiltrate - Flu negative and family denies any sick contacts - Given Levaquin, Zosyn and Vanc in the ED - Cont Zosyn and Vanc (04/26) until tomorrow, then will transition to 10 days Augmentin - Urine and blood cultures negative to date 2. Acute Respiratory Failure: 2/ CAP - Appreciate Dr. Louis's assistance - Stable off ventilator 3. Lactic acidosis, resolved 4. Stage IV Lung Ca - Followed by Dr. Marrero and currently on Keytruda - Missed Keytruda dose yesterday (04/28) - Dr Marrero and Lizette Brambila following 5. Elevated CK-MB: likely 2/2 #1 - Downtrending 6. Elevated trop - Stable, no chest pain, no EKG changes - Likely 2/2 demand ischemia 7. Macrocytic Anemia - B12 elevated, RBC folate pending 8. HTN - Restart home amlodipine pending BP, previously hypotensive 10. COPD - Not on any meds per [facility] records - Duonebs PRN if they give symptomatic relief 11. RA: - Home plaquenil 12. Depression - Home celexa and mirtazapine 13. Hypothyroidism - Synthroid dose recently inc to Synthroid 125mcg this past Wednesday by PCP 14. Deconditioning - Appreciate PT/OT assistance - Will consult CM today for assistance with short term rehab/SNF placement PPX: lovenox <Sri Roman - Last Filed: 04/29/17 09:54> Attending Addendum - Attending Addendum Date/Time: 04/29/17 1145 I personally evaluated the patient and discussed the management with Dr. Roman I agree with the History, Examination, Assessment and Plan documented above with any addition or exceptions noted below. Acute hypoxic resp failure- resolved HCAP- on Vanc/zosyn- transition to augmentin tomorrow Lung ca- continue recs per oncology Deconditioning- will need SNF to rebuild strength. <Aurelia Mehta - Last Filed: 04/29/17 15:10>
[2017-04-29] MEDS: Vancomycin HCl 1 GM in Premix Bag 1 BAG IVPB SCH ×2 (07:08→11:44)
[2017-04-29] MEDS: Hydroxychloroquine Sulfate 200 MG TAB PO SCH (08:30)
[2017-04-29] MEDS: Enoxaparin Sodium 40 MG/0.4 ML SYRINGE SC SCH (08:30)
[2017-04-29 16:31] VITALS: BMI 21.0
--- NOTE | 2017-04-29 16:54 | PRG ---
DATE OF SERVICE: 04/29/2017 SERVICE: Pulmonary Medicine. INTERVAL HISTORY: The patient is doing really well from a cardiovascular and respiratory standpoint. She denies any current fevers, chills, nausea, vomiting or chest discomfort. Otherwise, she has es sentially returned to her usual state of health. She is on her home oxygen. There has been no inter alisha change to her condition. She tells me she even got up to the bathroom without any assistance. PHYSICAL EXAMINATION: VITAL SIGNS: Afebrile, pulse 87, blood pressure 142/98, respirations 18, saturation 96% on 2 liters nasal cannula. GENERAL: The patient is awake, alert, no apparent distress. LUNGS: Decent air entry. Rhonchi are present. There is no prolonged expiratory phase or wheezing a ppreciated. HEART: Normal rate, regular. ABDOMEN: Soft, nontender, nondistended. Bowel sounds are positive. MUSCULOSKELETAL: No cyanosis or clubbing. Trace pitting in the bilateral lower extremities. NEUROLOGIC: Grossly nonfocal. LABORATORY DATA: WBC 9.3, hemoglobin 10.0, platelets 113,000. Band count is low and the neutrophil count has resolved. Potassium 2.8. Basic metabolic profile is otherwise unremarkable. Bicarbonate 35. Magnesium is 1.6. Blood cultures x2, urine culture and Influenza A and B are unremarkable. ASSESSMENT: 1. Acute hypoxic respiratory failure. 2. Septic shock, resolved. 3. Healthcare-associated pneumonia. 4. Non-ST elevation myocardial infarction. PLAN: We can continue her antibiotics, nebulized medications and steroids. At this point, the patie nt has had 3 days of antibiotics with vancomycin and Zosyn. We stopped the vancomycin yesterday. Th e Zosyn can be stopped tomorrow and converted over to Augmentin. We can complete a 10-14 day course of Augmentin in the outpatient setting. From my perspective, if she is doing well tomorrow and demon strates decent strength and is safe for discharge, she can go home from a respiratory perspective. S he will need a repeat chest x-ray in 4-6 weeks in the outpatient setting to follow up the infiltrate.
[2017-04-29] MEDS ORDERED: Magnesium 2 GM/NS 0.9% 100 ML 2 GM in Premix Bag 1 BAG IVPB SCH (17:00)
[2017-04-29 20:25] LABS: Anion Gap 9 mmol/L (10-20); BUN (Urea Nitrogen) 7 mg/dL (9.8-20.1); Calc. Creatinine Clearance 70 mL/min (70-130); Calcium 9.6 mg/dL (7.8-10.44); Carbon Dioxide 37 mmol/L (23-31); Chloride 100 mmol/L (98-107); Estimated GFR-MDRD Greater than 90; Glucose 110 mg/dL (80-115); Potassium 3.3 mmol/L (3.5-5.1); Sodium 143 mmol/L (136-145)
[2017-04-30] MEDS: Piperacillin/Tazobactam 3.375 GM in Sodium Chloride 0.9% 100 ML IVPB SCH ×2 (05:36→11:52)
[2017-04-30] MEDS ORDERED: Levothyroxine Sodium 125 MCG TAB PO SCH (06:00)
[2017-04-30 06:27] LABS: Hemoglobin 11.1 g/dL (12.0-16.0); Mean Corpuscular Hemoglobin 30.1 pg (27.0-31.0); Mean Corpuscular Volume 94.2 fl (81.0-99.0); Mean Platelet Volume 7.5 fL (7.4-10.4); Platelet Count 111 thou/uL (130-400); RBC Distribution Width 15.9 % (11.5-14.5); White Blood Cell (WBC) Count 9.5 thou/uL (4.8-10.8)
[2017-04-30 06:35] LABS: Anion Gap 9 mmol/L (10-20); BUN (Urea Nitrogen) 4 mg/dL (9.8-20.1); Calc. Creatinine Clearance 78 mL/min (70-130); Calcium 9.2 mg/dL (7.8-10.44); Carbon Dioxide 35 mmol/L (23-31); Chloride 100 mmol/L (98-107); Estimated GFR-MDRD Greater than 90; Glucose 87 mg/dL (80-115); Potassium 3.3 mmol/L (3.5-5.1); Sodium 141 mmol/L (136-145)
--- NOTE | 2017-04-30 06:40 | PDOC.FM ---
- Subjective Subjective: Feeling well this morning and no complaints. She feels ready to go home today and expresses her preference for home health and not to go to SNF/rehab. - Objective MAR Reviewed: Yes Vital Signs & Weight: Vital Signs (12 hours) Temp Pulse Resp BP Pulse Ox 04/30/17 04:00 98.7 F 91 18 133/94 H 96 04/30/17 01:09 99 04/30/17 00:18 94 18 99 04/29/17 20:25 98.5 F 94 18 99 04/29/17 20:00 98.5 F 83 18 120/86 96 Weight Admit Weight 60.328 kg Weight 57.833 kg Most Recent Monitor Data Heart Rate from ECG 96 NIBP 135/90 NIBP BP-Mean 117 Respiration from ECG 7 SpO2 100 I&O: 04/28/17 04/29/17 04/30/17 06:59 06:59 06:59 Intake Total 2701 1053 1340 Output Total 1280 4545 Balance 1421 -3492 1340 Result Diagrams: 04/30/17 05:29 04/30/17 05:29 <Sri Roman - Last Filed: 04/30/17 10:58> - Objective Vital Signs & Weight: Vital Signs (12 hours) Temp Pulse Resp BP Pulse Ox 04/30/17 13:04 95 18 96 04/30/17 11:12 98.8 F 101 H 18 149/93 H 93 L 04/30/17 08:00 98.0 F 100 18 97 04/30/17 07:10 98 F 91 20 125/85 98 04/30/17 04:00 98.7 F 91 18 133/94 H 96 Weight Admit Weight 60.328 kg Weight 57.833 kg Most Recent Monitor Data Heart Rate from ECG 96 NIBP 135/90 NIBP BP-Mean 117 Respiration from ECG 7 SpO2 100 I&O: 04/29/17 04/30/17 05/01/17 06:59 06:59 06:59 Intake Total 1053 1340 Output Total 4545 Balance -3492 1340 Result Diagrams: 04/30/17 05:29 04/30/17 05:29 <Aurelia Mehta - Last Filed: 04/30/17 14:44> Phys Exam - Physical Examination Constitutional: NAD HEENT: moist MMs Neck: supple Respiratory: no wheezing, clear to auscultation bilateral Cardiovascular: RRR systolic murmur Gastrointestinal: soft, non-tender, no distention, positive bowel sounds Musculoskeletal: no edema, pulses present Neurological: non-focal, moves all 4 limbs Psychiatric: normal affect, A&O x 3 Skin: normal turgor, cap refill <2 seconds <Sri Roman - Last Filed: 04/30/17 10:58> Dx/Plan (1) Acute kidney injury Code(s): N17.9 - ACUTE KIDNEY FAILURE, UNSPECIFIED Status: Acute (2) Elevated troponin Code(s): R74.8 - ABNORMAL LEVELS OF OTHER SERUM ENZYMES Status: Acute (3) Lactic acidosis Code(s): E87.2 - ACIDOSIS Status: Acute (4) Leukocytosis Code(s): D72.829 - ELEVATED WHITE BLOOD CELL COUNT, UNSPECIFIED Status: Acute (5) Macrocytic anemia Code(s): D53.9 - NUTRITIONAL ANEMIA, UNSPECIFIED Status: Acute (6) Pneumonia Code(s): J18.9 - PNEUMONIA, UNSPECIFIED ORGANISM Status: Acute (7) Respiratory failure Code(s): J96.90 - RESPIRATORY FAILURE, UNSP, UNSP W HYPOXIA OR HYPERCAPNIA Status: Acute (8) Septic shock Code(s): A41.9 - SEPSIS, UNSPECIFIED ORGANISM; R65.21 - SEVERE SEPSIS WITH SEPTIC SHOCK Status: Acute (9) Hypothyroidism Code(s): E03.9 - HYPOTHYROIDISM, UNSPECIFIED Status: Acute (10) Rheumatoid arthritis Code(s): M06.9 - RHEUMATOID ARTHRITIS, UNSPECIFIED Status: Acute - Plan Plan: 71 yo F with acute hypoxic respiratory failure 2/2 CAP 1. Septic Shock 2/2 CAP - Extubated 04/28 - CXR showing RLL infiltrate - Flu negative and family denies any sick contacts - Given Levaquin, Zosyn and Vanc in the ED - s/p Vanc x4 days and Zosyn x4 days, will transition to 10 days Augmentin today - Urine and blood cultures negative to date 2. Acute Respiratory Failure: 2/ CAP - Appreciate Dr. Louis's assistance - Stable off ventilator 3. Lactic acidosis, resolved 4. Stage IV Lung Ca - Followed by Dr. Marrero and currently on Keytruda - Missed Keytruda dose (04/28) - Dr Marrero and Lizette Brambila following 5. Elevated CK-MB: likely 2/2 #1 - Downtrending 6. Elevated trop - Stable, no chest pain, no EKG changes - Likely 2/2 demand ischemia 7. Macrocytic Anemia - B12 elevated, RBC folate pending 8. HTN - Will restart home amlodipine 10. COPD - Not on any meds per [facility] records - Duonebs PRN if they give symptomatic relief 11. RA: - Home plaquenil 12. Depression - Home celexa and mirtazapine 13. Hypothyroidism - Synthroid dose recently inc to Synthroid 125mcg this past Wednesday by PCP 14. Deconditioning - Appreciate PT/OT assistance - CM assistance with confirm home health with PT PPX: lovenox Dispo: Discharge today <Sri Roman - Last Filed: 04/30/17 10:58> Attending Addendum - Attending Addendum Date/Time: 04/30/17 1040 I personally evaluated the patient and discussed the management with Dr. Roman I agree with the History, Examination, Assessment and Plan documented above with any addition or exceptions noted below. Acute hypoxic respiratory failure- resolved Septic shock secondary to HCAP- shock resolved. home on augmentin Elevated CKMB and indet trop without ST changes-secondary to demand ischemia and septic shock. Stage IV lung ca- f/u with onc Deconditioning- I recommend SNF but patient and family prefer d/c home. Stable for d/c with close outpatient followup <Aurelia Mehta Sandhya - Last Filed: 04/30/17 14:44>
[2017-04-30 07:56] LABS: Band 7 % (5-11); Eosinophils 5 % (0-10); Lymphocytes 32 % (21-51); MDiff Complete? YES; Metamyelocyte 1 % (0-0); Monocytes 14 % (0-10); Myelocyte 1 % (0-0); Neutrophil 40 % (42-75); PLT Morphology Comment Appears Decreased; RBC Morphology Normal
[2017-04-30] MEDS: Enoxaparin Sodium 40 MG/0.4 ML SYRINGE SC SCH (08:26)
[2017-04-30] MEDS ORDERED: Hydroxychloroquine Sulfate 200 MG TAB PO SCH (09:00)
[2017-04-30] MEDS ORDERED: Citalopram 20 MG TAB PO SCH ×2 (09:00)
[2017-04-30] MEDS ORDERED: Potassium Chloride 20 MEQ TAB PO SCH (10:00)
[2017-04-30 11:54] VITALS: BP 149/93; TEMP 98.8
--- NOTE | 2017-04-30 15:36 | PRG ---
DATE OF SERVICE: 04/30/2017 SERVICE: Pulmonary Medicine. INTERVAL HISTORY: The patient is doing outstanding from a respiratory standpoint. She has been wean ed down to room air. She denies any chest pain, shortness of breath, fevers or chills. Otherwise, t here has been no interval change to her condition. She has been able to get up and walk up and down the hallways, and to the bathroom without difficulties. She is prepared to go home at this point. PHYSICAL EXAMINATION: VITAL SIGNS: Afebrile, pulse 95, blood pressure 149/93, respirations 18, saturation 96% on room air. GENERAL: The patient is awake, alert, no apparent distress. LUNGS: Excellent air entry. There is no prolonged expiratory phase, wheezing, rhonchi or crackles. HEART: Normal rate, regular. ABDOMEN: Soft, nontender, nondistended. Bowel sounds are positive. MUSCULOSKELETAL: No cyanosis or clubbing. No pitting in the bilateral lower extremities. NEUROLOGIC: Grossly nonfocal. LABORATORY DATA: WBC 9.5, hemoglobin 11.1, platelets 111,000 and stable. Neutrophil count is 40% an d returned to normal. Sodium 141, potassium 3.3. Basic metabolic profile is otherwise unremarkable. Urine culture, blood culture x2 and influenza are all unremarkable. ASSESSMENT: 1. Acute hypoxic respiratory failure. 2. Septic shock, resolved. 3. Healthcare-associated pneumonia. 4. Non-ST elevation myocardial infarction. DISCUSSION AND PLAN: The patient is really doing fantastic from a respiratory standpoint. At this p oint, we can discontinue the vancomycin and Zosyn, and switch her over to p.o. Augmentin. From my p erspective, she can be discharged out to complete a 10-14 day course of antibiotic therapy in the out patient setting. She will need a repeat chest x-ray in 4-6 weeks in the outpatient setting with me yojana t that time. Pulmonary and Critical Care will continue to follow if she remains in house, but from a pulmonary perspective, she is stable for transition out.
--- NOTE | 2017-05-01 13:08 | EKG ---
Test Reason : Blood Pressure : / mmHG Vent. Rate : 091 BPM Atrial Rate : 091 BPM P-R Int : 170 ms QRS Dur : 078 ms QT Int : 394 ms P-R-T Axes : 035 027 018 degrees QTc Int : 484 ms Sinus rhythm with Premature supraventricular complexes with occasional Premature ventricular complexe s Low voltage QRS Nonspecific ST and T wave abnormality Prolonged QT Abnormal ECG Baseline Artifact Present limits interpretation #1 Confirmed by KATHY PRO, WILMAN Lehman ([id number]), society editor BEAN CEBALLOS ([id number]) on 05/01/2017 1:07:54 PM Referred By: Confirmed By:WILMAN CHAVEZ MD
--- NOTE | 2017-05-03 06:50 | DIS-2 ---
DATE OF ADMISSION: 04/26/2017 DATE OF DISCHARGE: 04/30/2017 RESIDENT: Sri Roman MD ADMITTING ATTENDING: Konstantin Alvarez MD DISCHARGE ATTENDING: Aurelia Mehta MD CONSULTS: Dr. Louis with Pulmonology and Dr. Marrero with Oncology. PROCEDURES: Chest x-ray (04/25/2017): NG tube was then placed and the tip was in the jethro. NG tube was in place and appears to be in lower esophagus. Heart is enlarged. There is mild vascular congestion. The patient is rotated which distorts and mildly degrades the study. I cannot exclude infiltrate in the right lower lung and I cannot exclude right effusion. Chest x-ray (04/25/2017): NG tube appears to have been slightly retracted. NG tube was again noted. The tip continues to probably reside in the distal esophagus, not well-delineated. There is right lung infiltrate and right-sided effusion. Mild cardiomegaly and mild vascular congestion. Numerous tiny densities overlying the left upper chest and left lower neck. These appeared to be either skin related or extraneous. Chest x-ray. (04/26/2017): Pleural and parenchymal changes again in the right lung base is probably related to right pleural effusion and atelectasis. There are opacities on the right subclavian and venous without evidence of pneumothorax. Innumerable punctate radiopaque densities in the left upper chest. Dense opacity in the right retrocardiac region. Brain CT. Please see formal read. Chest x-ray (04/28/2017): No significant change in radiographic appearance of the chest. PRIMARY DIAGNOSIS: Acute hypoxic respiratory failure secondary to community- acquired pneumonia. SECONDARY DIAGNOSES: 1. Acute kidney injury. 2. Elevated troponin. 3. Lactic acidosis. 4. Leukocytosis. 5. Microcytic anemia. 6. Community-acquired pneumonia. 7. Respiratory failure. 8. Septic shock. 9. Hypothyroidism. 10. Rheumatoid arthritis. 11. Depression 12. Deconditioning. 13. Stage IV lung cancer on Keytruda. DISCHARGE MEDICATIONS: 1. Augmentin 875/125 one tablet p.o. b.i.d. x10 days. 2. Ranitidine 150 mg p.o. b.i.d. 3. Tizanidine 4 mg p.o. b.i.d. 4. Plaquenil 200 mg p.o. daily. 5. Citalopram 20 mg p.o. daily. 6. Levothyroxine 125 mcg p.o. daily. 7. Diclofenac 50 mg p.o. b.i.d. DISCONTINUE MEDICATIONS: 1. Amlodipine 10 mg p.o. daily. 2. Furosemide 20 mg p.o. daily. 3. Prednisone 5 mg p.o. daily. 4. Strum 5/325 one tab p.o. q.6 hours p.r.n. HISTORY OF PRESENT ILLNESS AND HOSPITAL COURSE: Ms. Reed presented via EMS on the after becoming progressively difficult to arouse per her family. She was found to be hypotensive and tachycardic in the emergency room and was started on IV fluids and antibiotics. There was concern that she was unable to protect her airway and she was intubated and started on pressors for low blood pressure at that time. For concern of right lower lobe infiltrate, she was started on ampicillin and Levaquin and admitted to the CCU. She steadily improved over the following days and was successfully extubated. After blood and urine cultures were found to be negative, her antibiotics were deescalated. She continued to steadily improve and was tolerating p.o. and back to her baseline prior to discharge. All of her home medications have been resumed apart from amlodipine for the fact that she did not have any elevated blood pressures while she was here. The patient is deconditioned and it was recommended that she go to an inpatient rehab or SNF. However, patient and family declined this and preferred to work with home health physical therapy. At this time, she is being discharged with plan for home health. She has family members with her that can assist her. She had no concerns prior to going home and requested to go home. DISPOSITION: Guarded. DISCHARGE INSTRUCTIONS: 1. Location: Home. 2. Diet: Heart healthy. 3. Activity: As tolerated. Patient was at fall risk and was recommended to use walker and assistance to get around and ambulate. 4. Followup: With PCP, Dr. Tiago Manriquez, within [address] Marrero within 1 week of discharge. KAVEH
== END 2017-04-30 14:16 | disposition home health service (06) | DRG 871 ==
LOC: ERS 22:18 → CCU 04-26 02:01 → 2NO 04-29 00:04 → CCU 04-29 00:05 → 2SE 04-29 00:46
PROVIDERS: ADMIT Emergency Medicine; ATTEND Emergency Medicine
PROC: 5A1945Z Respiratory Ventilation, 24-96 Consecutive Hours (ICD-10-PCS; principal; 2017-04-26)
PROC: 02HV33Z Insertion of Infusion Device into Superior Vena Cava, Percutaneous Approach (ICD-10-PCS; 2017-04-26)
PROC: 0BH17EZ Insertion of Endotracheal Airway into Trachea, Via Natural or Artificial Opening (ICD-10-PCS; 2017-04-26)
PROC: 0DH67UZ Insertion of Feeding Device into Stomach, Via Natural or Artificial Opening (ICD-10-PCS; 2017-04-26)
DX: A41.9 Sepsis, unspecified organism (principal); R65.21 Severe sepsis with septic shock; J96.01 Acute respiratory failure with hypoxia; I21.A1 Myocardial infarction type 2; J18.9 Pneumonia, unspecified organism; N17.9 Acute kidney failure, unspecified; J91.8 Pleural effusion in other conditions classified elsewhere; C79.9 Secondary malignant neoplasm of unspecified site; E87.2 Acidosis; C34.90 Malignant neoplasm of unspecified part of unspecified bronchus or lung; J44.0 Chronic obstructive pulmonary disease with (acute) lower respiratory infection; J98.11 Atelectasis; I95.9 Hypotension, unspecified; Z99.81 Dependence on supplemental oxygen; I11.9 Hypertensive heart disease without heart failure; D53.9 Nutritional anemia, unspecified; M06.9 Rheumatoid arthritis, unspecified; R74.8 Abnormal levels of other serum enzymes; E03.9 Hypothyroidism, unspecified; F32.9 Major depressive disorder, single episode, unspecified; F17.210 Nicotine dependence, cigarettes, uncomplicated
CPT/HCPCS: 31500; 36415; 36416; 36556; 51702; 70450; 71045; 80048; 80053; 80202; 81003; 81015; 82553; 82607; 82747; 82805; 83605; 83690; 83735; 84443; 84484; 85007; 85025; 85027; 85610; 85730; 87040; 87086; 87804; 90471; 90670; 93005; 93010; 94002; 94003; 94640; 96361; 96365; 96366; 96368; 96375; 99292; A4216; C9113; G0009; G8978-GP-CM; G8979-GP-CK; G8987-GO-CJ; G8988-GO-CH; G8996-GN-CJ; G8997-GN-CI; J1650; J1720; J1956; J2001; J2250; J2543; J2765; J3010; J3370; J3475; J7050; J7620

== ENCOUNTER 2017-05-03 09:33 | Day surgery (SDC) | payer MEDICARE, MEDICAID ==
[2017-05-03] MEDS ORDERED: Pembrolizumab 200 MG, Admixture Fee 1 EACH in Sodium Chloride 0.9% 250 ML 250 ML IV SCH (09:45)
[2017-05-03 10:55] VITALS: BP 83/61; TEMP 98.5
== END 2017-05-03 10:57 | disposition home or self-care (01) ==
LOC: ONC/OP 09:33
PROVIDERS: ATTEND Internal Medicine Medical Oncology
DX: Z51.11 Encounter for antineoplastic chemotherapy (principal); C34.90 Malignant neoplasm of unspecified part of unspecified bronchus or lung; F17.200 Nicotine dependence, unspecified, uncomplicated; J44.9 Chronic obstructive pulmonary disease, unspecified; M06.9 Rheumatoid arthritis, unspecified; I10 Essential (primary) hypertension; E78.5 Hyperlipidemia, unspecified; F32.9 Major depressive disorder, single episode, unspecified; E03.9 Hypothyroidism, unspecified; D53.9 Nutritional anemia, unspecified; Z79.2 Long term (current) use of antibiotics; Z79.899 Other long term (current) drug therapy; Z88.5 Allergy status to narcotic agent
CPT/HCPCS: 96413; J7050; J9271

== ENCOUNTER 2017-05-21 13:19 | Inpatient (IN) | payer MEDICARE, MEDICAID ==
[~2017-05-21 13:19] MED LIST: ISOVUE-370 76%-LOCM 1 ML ONE
[2017-05-21 14:02] LABS: Hemoglobin 9.3 g/dL (12.0-16.0); Mean Corpuscular HGB CONC 32.4 g/dL (32.0-36.0); Mean Corpuscular Hemoglobin 30.8 pg (27.0-31.0); Mean Corpuscular Volume 95.1 fl (81.0-99.0); Mean Platelet Volume 8.5 fL (7.4-10.4); Platelet Count 95 thou/uL (130-400); RBC Distribution Width 16.1 % (11.5-14.5)
--- NOTE | 2017-05-21 14:23 | RAD ---
FRONTAL RADIOGRAPH CHEST: 05/21/2017 HISTORY: Hypoxia. COMPARISON: 04/28/2017 FINDINGS: There is dense opacity in the right perihilar region and right lung base, which suggests right perihi lar and right basilar air space disease/consolidation and right pleural fluid. An underlying mass le vi cannot be excluded. No pneumothorax is seen. There is tortuosity of the descending thoracic ao rta. The left lung is relatively clear. There is atherosclerotic calcification of the aortic arch. IMPRESSION: There is dense opacity in the right perihilar region and right lung base, suggesting air space diseas e, volume loss, and/or pleural fluid. An underlying mass lesion cannot be excluded. This could be b erwin evaluated via CT examination of the chest versus short-term follow-up imaging following treatme nt. CODE T POS: LANDY
[2017-05-21 14:24] LABS: ALT (SGPT) 9 U/L (8-55); AST (SGOT) 15 U/L (5-34); Alkaline Phosphatase 70 U/L (40-150); Anion Gap 13 mmol/L (10-20); BUN (Urea Nitrogen) 12 mg/dL (9.8-20.1); Bilirubin, Total 0.6 mg/dL (0.2-1.2); CK (CPK) 116 U/L (29-168); Calc. Creatinine Clearance 0 mL/min (70-130); Calcium 9.7 mg/dL (7.8-10.44); Carbon Dioxide 28 mmol/L (23-31); Chloride 102 mmol/L (98-107); Estimated GFR-MDRD Greater than 90; Glucose 88 mg/dL (80-115); Potassium 3.9 mmol/L (3.5-5.1); Sodium 139 mmol/L (136-145)
[2017-05-21 14:27] LABS: Troponin I Less than 0.010 ng/mL (< 0.028)
[2017-05-21 14:28] LABS: Anisocytosis SLIGHT = 6-15 cells (100X) (0-5/hpf); Band 12 % (5-11); Differential Comment Blast-Like Cell(s); Eosinophils 2 % (0-10); Lymphocytes 21 % (21-51); MDiff Complete? YES; Metamyelocyte 2 % (0-0); Monocytes 10 % (0-10); Myelocyte 2 % (0-0); Neutrophil 43 % (42-75); Ovalocytes SLIGHT = 2-5 cells (100X) (0-1/hpf); PLT Morphology Comment Appears Decreased; Polychromasia SLIGHT = 2-3 cells (100X) (0-2/hpf); Reactive Lymphocytes 4 % (0-10); Reflex for Review?? YES; Schistocytes SLIGHT = 2-5 cells (100X) (0-1/hpf)
[2017-05-21 14:34] LABS: CKMB 20.9 ng/mL (0-6.6)
--- NOTE | 2017-05-21 15:21 | CT ---
CTA THORAX WITH IV CONTRAST AND PE PROTOCOL AND 3D REFORMATTED IMAGING: INDICATIONS: History of cancer and hypoxia with recent hospitalization. COMPARISON: Prior exams dated 06/01/2013 and 02/24/2017. FINDINGS: The large right infrahilar mass is increased in size. There is worsening post obstructive atelectasi s within the right lower lobe. The degree of post obstructive atelectasis and enlargement of the mas s lesion are poorly delineated. In total with the post obstructive atelectasis, the lesion appears en larged, measuring 11 x 7.5 cm, where it previously measured 7.2 x 5.4 cm. No central or segmental pu lmonary embolus is evident. There is new thrombus present within the right inferior pulmonary vein, extending into the left atrium, measuring 1.4 cm, on image 63 of series 2. A spiculated nodule withi n the left upper lobe is largely stable on image 35 of series 2. A small, spiculated nodule within t he right upper lobe on image 30 of series 3 is stable. Emphysematous change is similar appearing. H ealing rib fractures along the left posterolateral chest wall are similar appearing. Pulmonary arter iomegaly is stable. The visualized upper abdomen is unchanged. IMPRESSION: 1. No central or segmental pulmonary embolus demonstrated. 2. There is thrombus present within the right inferior pulmonary vein, extending to the left atrium. Findings were discussed with Dr. Burrell at 2:50 p.m. on 05/21/2017. 3. Enlarging right infrahilar mass with worsening post obstructive atelectasis of the right lower lo be with associated malignant right pleural effusion. 4. Spiculated nodules within both upper lobes are relatively stable, concerning for either secondary primary malignancy versus metastatic disease. 5. Stable emphysema. CODE CR POS: NELLIE
[2017-05-21] MEDS ORDERED: Enoxaparin Sodium 60 MG/0.6 ML SYRINGE ONE (15:38)
--- NOTE | 2017-05-21 16:03 | PDOC.FPRHP ---
- History of Present Illness Chief Complaint: Low O2 saturation at home History of Present Illness: 71 yo female stage IV pulmonary squamous cell carcinoma presents with low O2 sats at home. Patient seen and evaluated by home health earlier today and found to have O2 sat in the 80's on room air. On presentation to ER, O2 sat was 82% on room air. Patient's daugther reports blood pressure was also low to a systolic of 90 mmHG. Daughter states the physical therapest reports O2 sat earlier in the week was only 90%. Patient states she has been eating and drinking routinely. However she also reports feeling sick to her stomach recently. Denies a sensation of SOB. She reports she was feeling fine at home. Currently during exam she reports she feels "some shortness of breath." See Onc for chemo every 3 weeks. Has stopped smoking since last hospitalization. PCP: Dr. Manriquez ([facility]) Code Status: Full ED Course: Imaging positive for pulmonary vein thrombosis extending into the left atrium. Received therapeutic lovenox. Placed on supplemental O2. - Allergies/Adverse Reactions Allergies Allergy/AdvReac Type Severity Reaction Status Date / Time tramadol Allergy Mild Rash Verified 09/17/16 08:52 - Home Medications Medication Instructions Recorded Confirmed Type Ranitidine HCl 150 mg PO BID 06/01/13 04/29/17 History Hydroxychloroquine Sulfate 200 mg PO DAILY 03/16/16 04/29/17 History [Plaquenil] tiZANidine HCl [Tizanidine HCl] 4 mg PO BID PRN 03/16/16 04/29/17 History Citalopram Hydrobromide 20 mg PO DAILY 09/17/16 04/29/17 History [Citalopram HBr] Diclofenac Sodium 50 mg PO BID 04/29/17 04/29/17 History Levothyroxine Sodium [Tirosint] 125 mcg PO DAILY 04/29/17 04/29/17 History Acetaminophen [Tylenol Regular 650 mg PO Q6H PRN 05/21/17 05/21/17 History Strength] HYDROcodone Bit/APAP 5/325 [[place]] 1 tab PO Q6HR PRN 05/21/17 05/21/17 History - History PMHx: 1. Retirement tobacco use 2. Pulmonary squamous cell carcinoma 3. COPD 4. HTN 5. Arthritis - rheumatoid, osteo 6. Hypothroidism 7. hx of depression PSHx: 1. Knee surgery 2. Cubial tunnel repair 3. Carpal tunnel repair 4. Hysterectomy FHx: Mother: Heart disease Father: unknown Siblings: Lung cancer (sister), throat cancer (brother) Children: Prostate cancer (son) Social: Retirement tobacco. Denies alcohol and drug use. Lives with her son. - Review of Systems General: reports: weight/appetite/sleep changes, fatigue. denies: fever/chills Eyes: denies: eye pain, vision changes ENT: denies: nasal congestion, rhinorrhea Respiratory: reports: shortness of breath, exercise intolerance. denies: cough , congestion Cardiovascular: denies: chest pain, palpitation, edema, orthopnea Gastrointestinal: reports: nausea, abdominal pain. denies: vomiting, diarrhea, constipation, GI bleeding Genitourinary: denies: dysuria Skin: denies: rashes, lesions Musculoskeletal: reports: pain, stiffness, arthritis/arthralgias. denies: swelling Neurological: reports: weakness, other (Reports dizziness). denies: numbness, syncope Psychological: denies: anxiety, depression - Vital signs BP: [] HR: [] RR: [] Tmax: [] Pox: []% on [] Wt: [] - Physical Exam Constitutional: awake, alert and oriented, well developed, other (tired, weak) HEENT: normocephalic and atraumatic, PERRLA, EOMI, grossly normal hearing -HEENT: dry MM Neck: supple, FROM -Neck: LAD to right with positive supraclavicular node palpable Chest: no-tender to palpation, no lesions Heart: RRR, pulses present -Heart: 3/6 systolic murmur heard best at tricuspid area Lungs: no respiratory distress, no wheezing, no retractions -Lungs: decreased breath sounds on the RLL and RUL. Abdomen: soft, non-tender, bowel sounds present, no masses/distention Musculoskeletal: normal structure, normal tone Neurological: no focal deficit, CN II-XII intact, normal sensation Skin: no rash/lesions Heme/Lymphatic: no unusual bruising or bleeding -Heme/Lymphatic: Lymphadenopathy of R supraclavicular area, anterior cervical area, and groin area. Psychiatric: normal mood and affect, intact recent and remote memory FMR H&P: Results - Labs Result Diagrams: 05/21/17 13:48 05/21/17 13:48 Lab results: WBC 14.0 thou/uL (4.8-10.8) H 05/21/17 13:48 Hgb 9.3 g/dL (12.0-16.0) L 05/21/17 13:48 Hct 28.6 % (36.0-47.0) L 05/21/17 13:48 MCV 95.1 fl (81.0-99.0) 05/21/17 13:48 Plt Count 95 thou/uL (130-400) L 05/21/17 13:48 Band Neuts % (Manual) 12 % (5-11) H 05/21/17 13:48 Sodium 139 mmol/L (136-145) 05/21/17 13:48 Potassium 3.9 mmol/L (3.5-5.1) 05/21/17 13:48 Chloride 102 mmol/L (98-107) 05/21/17 13:48 Carbon Dioxide 28 mmol/L (23-31) 05/21/17 13:48 BUN 12 mg/dL (9.8-20.1) 05/21/17 13:48 Creatinine 0.75 mg/dL (0.6-1.1) 05/21/17 13:48 Glucose 88 mg/dL (80-115) 05/21/17 13:48 Calcium 9.7 mg/dL (7.8-10.44) 05/21/17 13:48 Total Bilirubin 0.6 mg/dL (0.2-1.2) 05/21/17 13:48 AST 15 U/L (5-34) 05/21/17 13:48 ALT 9 U/L (8-55) 05/21/17 13:48 Alkaline Phosphatase 70 U/L (40-150) 05/21/17 13:48 Creatine Kinase 116 U/L (29-168) 05/21/17 13:48 CK-MB (CK-2) 20.9 ng/mL (0-6.6) H* 05/21/17 13:48 B-Natriuretic Peptide 87.1 pg/mL (0-100) 05/21/17 13:48 Serum Total Protein 6.0 g/dL (6.0-8.3) 05/21/17 13:48 Albumin 3.0 g/dL (3.4-4.8) L 05/21/17 13:48 - Radiology Interpretation CT scan - abdomen Status: image reviewed by me, report reviewed by me Additional comment: CTA shows thrombus present in the inferior R pulmonary vein extending into the L atrium, enlarging R infrahilar mass with stable spiculated areas concerning for secondary primary malignancy vs. metastatic disease, and pleural effusion. FMR H&P: A/P - Problem List (1) Pulmonary venous thrombosis Current Visit: Yes Status: Acute Code(s): I26.99 - OTHER PULMONARY EMBOLISM WITHOUT ACUTE COR PULMONALE (2) Squamous cell carcinoma of lung, stage IV Current Visit: Yes Status: Acute Code(s): C34.90 - MALIGNANT NEOPLASM OF UNSP PART OF UNSP BRONCHUS OR LUNG (3) Hypoxia Current Visit: No Status: Acute Code(s): R09.02 - HYPOXEMIA (4) Leukocytosis Current Visit: No Status: Acute Code(s): D72.829 - ELEVATED WHITE BLOOD CELL COUNT, UNSPECIFIED (5) Chronic low back pain Current Visit: No Status: Acute Code(s): M54.5 - LOW BACK PAIN; G89.29 - OTHER CHRONIC PAIN (6) Hypothyroidism Current Visit: No Status: Acute Code(s): E03.9 - HYPOTHYROIDISM, UNSPECIFIED (7) Rheumatoid arthritis Current Visit: No Status: Acute Code(s): M06.9 - RHEUMATOID ARTHRITIS, UNSPECIFIED (8) Thrombocytopenia Current Visit: Yes Status: Acute Code(s): D69.6 - THROMBOCYTOPENIA, UNSPECIFIED - Plan Acute Hypoxic Respiratory Failure 2/2 Stage IV SCC Lung Cancer and Pulmonary Vein Thrombosis - Patient's hypoxia improved with 2L NC in the ED. Satting 94% right now. CV Surgery, Dr. Fan was called by me to evaluate pulmonary vein thrombosis , stated there was nothing surgical that could be done and prognosis is poor. Patient received therapeutic lovenox in the ED. Plan to continue anticoagulation with therapeutic lovenox. Per CHEST guidelines, LMWH recommended over NOACs. Will proceed with LMWH for at least 3 months as recommended by CHEST guidelines for thrombosis in cancer patients. - Consulted oncology, Dr. Holder, who recommended continued anticoagulation as well. Will follow patient. Appreciate recs. - consult palliative care for continued care - O2 prn to keep sats > 92% - consult CM for likely need for home O2 and lovenox injections. - anti factor 10a level at 1945 to monitor for adequate anticoagulation Stage IV SCC Lung Cancer - Patient is followed by Dr. Marrero of Oncology and currently receiving chemotherapy with Keytruda every [address] done today showing an enlarging RT infrahilar mass and stable speculated nodules at BL upper lobes with concern for possible metastasis. - Consulted Onc as discussed above. Thrombocytopenia - continue to monitor with daily CBC. COPD - not on any home medications for COPD - recently quit smoking about 2 wks ago - duonebs prn for wheezing RA - continue home plaquenil, tizanidine, and diclofenac Hypothyroidism - continue home synthroid Depression - continue home citalopram GERD - continue home ranitidine Code Status: Full - Patient with hesitation about intubation after last hospital stay. After long discussion with daughter, Radha, present, she expressed she would like resuscitation but if it isn't working she wants us to stop. It was explained that we cannot predict outcomes during a code and she agreed to be full code but expressed her wishes to her daughter who would be the decision maker in the event of a code. Disposition/LOS: According to CV surgeon, prognosis is poor. Options for treatment are limited to anticoagulation. Plan for d/c home with home O2 and lovenox likely tomorrow with oncology follow up. FMR H&P: Upper Level - Pertinent history Pt is a 71yo AAF with PMHx of stage IV squamous cell carcinoma of the lung who presents with low O2 sats at home. Patient receives home health services 2x/ week and was seen earlier today and found to have O2 sats of 79-80%. EMS was called and O2 sats improved to 90s on NC. Daughter at bedside and reports that her blood pressure was also low at that time in the 90s. Patient denies any shortness of breath at home but currently does feel a bit short of breath. Followed by Dr. Marrero of Oncology and receives chemo with Keytruda every 3wks. In the ED given: lovenox 1mg/kg - Pertinent findings RR 28 HR 89 BP 114/84 O2 94% on 2L via NC Gen: NAD, NC in place HEENT: PERRLA, RT supraclavicular palpable LN Heart: S1, S2, 3/6 systolic murmur heard best RLSB Lungs: dec BS at RLL Ext: no cyanosis or edema Skin: RT inguinal LAD - Plan Date/Time: 05/21/17 9857 1. LT pulmonary vein thrombosis: Patient was found to be hypoxic at home earlier today and found to have LT inferior pulm v. thrombosis extending into the LA. This is most likely 2/2 due to her stage IV squamous cell carcinoma of her lung. Given therapeutic lovenox in the ED and will continue. Per CHEST guidelines, recommend LMWH over NOACs as long-term treatment for at least 3mo. Obtain anti-Xa level at 19:45, 4hrs post lovenox injection. Currently with good O2 sats on 2L via NC. Consulted Dr. Fan of CV surgery who had no further recommendations other than anticoagulation. Monitor on tele. Consult CM for likely home O2 and lovenox injections. 2. Stage IV squamous cell carcinoma of lung: Followed by Dr. Marrero of Oncology and currently receiving chemotherapy with Keytruda every [address] done today showing an enlarging RT infrahilar mass and speculated nodules at BL upper lobes with concern for possible metastasis. Consult Dr. Marrero/Lizette Brambila of Heme/Onc for further management. 3. HTN: hx of HTN but meds stopped during last hospitalization due to low BPs. Currently not on any meds and BPs wnl. Monitor. 4. Thrombocytopenia: Patient has been thrombocytopenic during previous hospitalization. Monitor closely. 5. Elev CK-MB: likely 2/2 #1. Denies any chest pain and trop negative. Re-check. 6. Hypothyroidism: obtain TSH. Cont home synthroid. 7. Depression: cont home celexa 8. RA: cont home plaquenil 9. Diet: HH 10. PPx: th lovenox 11. Code Status: full I, Charito Zuniga, have evaluated this patient and agree with findings/ plan as outlined by healthcare administration intern resident. Pertinent changes/additions are listed here. Attending Addendum - Attending Addendum Date/Time: 05/21/17 5207 I personally evaluated the patient and discussed the management with Dr. Griffiths and Dr. Ayon I agree with the History, Examination, Assessment and Plan documented above with any addition or exceptions noted below. 71 yo female with stage IV squamous cell lung cancer presents to ED by EMS for hypoxia at home. Patient reports some SOB and fatigue but largely complains of a "sick stomach." O2 sat in the ER on room air was 82%. Was placed on supplemental O2 and has responded well. On imaging noted to have a large pulmonary vein thrombosis which is extending into the left atrium. 1. Squamous cell carcinoma: Stage IV. Onc consulted. Supplemental O2 needed at home. 2. Left vein thrombus with extension into the left atrium: CV surg consulted. Started on Lovenox. Will follow antiXa levels to make sure she remains therapeutic. Will likely need to continue on Lovenox due to CHEST guidelines. Otherwise can discuss options with Heme/Onc. 3. Thrombocytopenia: Monitor closely. Continue home meds. Adjust as needed. Richy
[2017-05-21] MEDS ORDERED: Ondansetron ODT 4 MG TAB PO PRN (18:27)
[2017-05-21] MEDS ORDERED: Acetaminophen 325 MG TAB PO PRN (18:27)
[2017-05-21] MEDS ORDERED: tiZANidine HCl 4 MG TAB PO PRN (18:33)
[2017-05-21 19:41] LABS: Troponin I 0.012 ng/mL (< 0.028)
[2017-05-21 19:44] LABS: CKMB 27.1 ng/mL (0-6.6)
[2017-05-21] MEDS: Sodium Chloride 0.9% 1,000 ML IV SCH (20:05)
[2017-05-21] MEDS: Famotidine 20 MG TAB PO SCH (20:50)
[2017-05-21] MEDS: Docusate 100 MG CAP PO SCH (20:51)
[2017-05-21] MEDS: Enoxaparin Sodium 60 MG/0.6 ML SYRINGE SC SCH (20:51)
[2017-05-21] MEDS: HYDROcodone/Acetaminophen 5/325 mg Tablet PO PRN (20:53)
[2017-05-21] MEDS ORDERED: Non-Formulary Item 1 EACH (Ranitidine Hcl [Ranitidine Hcl] 150 MG) PO SCH (21:00)
[2017-05-21 23:14] LABS: Troponin I Less than 0.010 ng/mL (< 0.028)
[2017-05-21 23:16] LABS: CKMB 22.2 ng/mL (0-6.6); Critical Call CKMBM RESULT DECREASING
[2017-05-22] MEDS: HYDROcodone/Acetaminophen 5/325 mg Tablet PO PRN ×2 (04:21→17:43)
[2017-05-22] MEDS: Levothyroxine Sodium 125 MCG TAB PO SCH (05:28)
[2017-05-22] MEDS: Sodium Chloride 0.9% 1,000 ML IV SCH ×2 (05:28→16:41)
--- NOTE | 2017-05-22 06:09 | PDOC.FM ---
- Subjective Subjective: Patient doing well this AM. Resting comfortably in bed. Had extensive discussion regarding prognosis and specialists (CV, Cards, Onc) recommendations. She has no complaints this AM. Denies any chest or shortness of breath. Tolerating PO and waiting for her breakfast as she is hungry. - Objective MAR Reviewed: Yes Vital Signs & Weight: Vital Signs (12 hours) Temp Pulse Resp BP Pulse Ox 05/22/17 04:00 97.7 F 100 20 100/58 L 94 L 05/22/17 00:00 99.0 F 94 18 114/70 96 05/21/17 20:00 98.1 F 96 20 113/61 94 L Weight Weight 54.25 kg I&O: 05/20/17 05/21/17 05/22/17 06:59 06:59 06:59 Intake Total 1080 Balance 1080 Result Diagrams: 05/22/17 05:19 05/21/17 13:48 <Charito Zuniga - Last Filed: 05/22/17 09:55> - Objective Vital Signs & Weight: Vital Signs (12 hours) Temp Pulse Resp BP BP Pulse Ox 05/22/17 19:39 98.0 F 95 12 103/63 95 05/22/17 17:10 98.0 F 89 18 118/80 97 05/22/17 15:30 98.9 F 93 16 110/69 97 05/22/17 11:57 98.1 F 92 16 111/72 98 Weight Admit Weight 53.155 kg Weight 54.25 kg I&O: 05/21/17 05/22/17 05/23/17 06:59 06:59 06:59 Intake Total 1080 300 Balance 1080 300 Result Diagrams: 05/22/17 05:19 05/21/17 13:48 <Melanie Fraser - Last Filed: 05/22/17 22:22> Phys Exam - Physical Examination Constitutional: NAD HEENT: PERRLA, moist MMs Respiratory: no wheezing dec BS at RUL/RLL Cardiovascular: RRR 3/6SEM Gastrointestinal: soft, non-tender, no distention, positive bowel sounds Musculoskeletal: no edema, pulses present Deviation from normal: LAD at RT anterior cervical, RT supraclavicular and RT inguinal region <Charito Zuniga - Last Filed: 05/22/17 09:55> Dx/Plan (1) Pulmonary venous thrombosis Code(s): I26.99 - OTHER PULMONARY EMBOLISM WITHOUT ACUTE COR PULMONALE Status : Acute (2) Squamous cell carcinoma of lung, stage IV Code(s): C34.90 - MALIGNANT NEOPLASM OF UNSP PART OF UNSP BRONCHUS OR LUNG Status: Acute (3) Hypoxia Code(s): R09.02 - HYPOXEMIA Status: Acute (4) Elevated CK-MB level Code(s): R74.8 - ABNORMAL LEVELS OF OTHER SERUM ENZYMES Status: Acute (5) Thrombocytopenia Code(s): D69.6 - THROMBOCYTOPENIA, UNSPECIFIED Status: Acute (6) Leukocytosis Code(s): D72.829 - ELEVATED WHITE BLOOD CELL COUNT, UNSPECIFIED Status: Acute (7) Chronic low back pain Code(s): M54.5 - LOW BACK PAIN; G89.29 - OTHER CHRONIC PAIN Status: Acute (8) Hypothyroidism Code(s): E03.9 - HYPOTHYROIDISM, UNSPECIFIED Status: Acute (9) Rheumatoid arthritis Code(s): M06.9 - RHEUMATOID ARTHRITIS, UNSPECIFIED Status: Acute - Plan Plan: 1. Acute Hypoxic Respiratory Failure 2/2 Pulmonary Vein Thrombosis 2/2 # 2 - Initially hypoxic at home at 79-80% on RA. - Improved with 2L NC with mid 90s sats. - Dr. Fan of CV surgery was called who recommend no surgical intervention, cont anticoagulation and prognosis is poor. - Also d/w Dr. Barrow of Cards who recommended lifetime anticoagulation. - Given therapeutic lovenox in the ED. Cont th lovenox. - Per CHEST guidelines, pts with thrombosis and malignancy, recommend LMWH over NOACs for at least 3mo. - Dr. Holder of Onc consulted. Appreciate recs. - CM consulted for likely home O2 and lovenox injections. - Anti factor Xa level of .10 which is subtherapeutic. Repeat 4hrs post this AMs dose. Monitor and adjust as needed. 2. Stage IV SCC Lung Cancer - Followed by Dr. Marrero of Oncology and currently receiving chemotherapy with Keytruda every 3 wks. - CT done today showing an enlarging RT infrahilar mass and stable speculated nodules at BL upper lobes with concern for possible metastasis. - Dr. Holder test consultant this weekend. Appreciate recs. 3. Thrombocytopenia - pt will thrombocytopenia during previous hospitalization with resolution. - Cont to monitor closely. 4. Elevated CK-MB level - initial CK-MB level of 20.9, trending upward to 27.1 and then back down to 22.2 - likely 2/2 #1 - trops negative 5. COPD - not on any home medications for COPD - duonebs prn for wheezing 6. RA - continue home plaquenil, tizanidine, and diclofenac 7. Hypothyroidism - continue home synthroid 8. Depression - continue home citalopram 9. GERD - continue home ranitidine <Charito Zuniga - Last Filed: 05/22/17 09:55> Attending Addendum - Attending Addendum Date/Time: 05/22/172220 I personally evaluated the patient and discussed the management with Dr. Zuniga. I agree with the History, Examination, Assessment and Plan documented above with any addition or exceptions noted below. The patient is feeling better today. On lovenox. Checking [id number] and if low, will adjust dose. Will have nurses teach pt to give herself injections. Will be seen by onc today. <Melanie Fraser - Last Filed: 05/22/17 22:22>
[2017-05-22 06:54] LABS: Band 33 % (5-11); Eosinophils 1 % (0-10); Hemoglobin 8.5 g/dL (12.0-16.0); Lymphocytes 10 % (21-51); MDiff Complete? YES; Mean Corpuscular HGB CONC 31.9 g/dL (32.0-36.0); Mean Corpuscular Hemoglobin 30.5 pg (27.0-31.0); Mean Corpuscular Volume 95.7 fl (81.0-99.0); Mean Platelet Volume 8.8 fL (7.4-10.4); Metamyelocyte 10 % (0-0); Monocytes 15 % (0-10); Neutrophil 30 % (42-75); PLT Morphology Comment Appears Decreased; Platelet Count 77 thou/uL (130-400); Reactive Lymphocytes 1 % (0-10); Red Blood Cell (RBC) Count 2.79 mill/uL (4.20-5.40); White Blood Cell (WBC) Count 13.2 thou/uL (4.8-10.8)
[2017-05-22] MEDS: Enoxaparin Sodium 60 MG/0.6 ML SYRINGE SC SCH ×2 (08:35→21:43)
[2017-05-22] MEDS: Citalopram 20 MG TAB PO SCH (08:36)
[2017-05-22] MEDS: Docusate 100 MG CAP PO SCH ×2 (08:36→21:43)
[2017-05-22] MEDS: Famotidine 20 MG TAB PO SCH ×2 (08:36→21:43)
[2017-05-22] MEDS: Hydroxychloroquine Sulfate 200 MG TAB PO SCH (08:37)
[2017-05-22] MEDS ORDERED: Enoxaparin Sodium 60 MG/0.6 ML SYRINGE SC SCH (09:00)
[2017-05-22 12:20] VITALS: BMI 21.9
--- NOTE | 2017-05-22 14:42 | CON ---
DATE OF CONSULTATION: 05/22/2017 HISTORY OF PRESENT ILLNESS: Ms. Reed is a 71-year-old female with a history of metastatic lung c ancer, currently getting Keytruda immunotherapy in our office, [facility] She presented to the emergency room with complaints of increasing shortness of breath as well as chest pain that was pleuritic in nature, radiating to the right side. She was 82% on room air when she came to the emergency room and CT angiogram showed a thrombus in the right inferior pul monary vein extending into the left atrium. She has now improved on oxygen and her O2 saturations ar e in the 90s. She also was noted to have a right infrahilar mass, which was possibly worse with some postobstructive atelectasis. Today, she says she feels much better. She has been on blood thinners for 24 hours. The pleuritic pain is improved, but not resolved. Her shortness of breath is stable o n the oxygen. In fact currently, she is sitting up and eating a sandwich and is having no problems b reathing while eating. She denies any lower extremity edema. PAST MEDICAL HISTORY: 1. Metastatic non-small cell lung cancer, currently on immunotherapy. 2. Long-term tobacco use. 3. COPD. 4. Hypertension. 5. Rheumatoid arthritis. 6. Hypothyroidism. 7. Depression. CURRENT MEDICATIONS: 1. Tylenol p.r.n. 2. Robinson 5/325 one p.o. q.4 hours p.r.n. 3. DuoNeb 3 mL p.o. q.4 hours p.r.n. 4. Celexa 20 mg p.o. daily. 5. Diclofenac 50 mg p.o. b.i.d. 6. Colace 100 mg p.o. b.i.d. 7. Lovenox 60 mg subcu q.12 hours. 8. Pepcid 20 mg p.o. b.i.d. 9. Plaquenil 200 mg p.o. daily. 10. Levothyroxine 125 mcg p.o. daily. 11. Zofran 4 mg p.o. q.6 hours p.r.n. 12. Zanaflex 4 mg p.o. b.i.d. p.r.n. ALLERGIES: TRAMADOL. SOCIAL HISTORY: She does continue to smoke intermittently. She is here with her family appears quit e supportive. FAMILY HISTORY: Negative. REVIEW OF SYSTEMS: Otherwise, 10-point review of systems is negative. Please see the history of pre sent illness. PHYSICAL EXAMINATION: VITAL SIGNS: Temperature 98.1, pulse in the 90s, respirations 16-18, O2 sat 98% on 2 liters nasal ca nnula, blood pressure 109/72. GENERAL: She is quite slender, almost cachectic. HEENT: Extraocular muscles are intact. Sclerae are anicteric. NECK: Supple without lymphadenopathy. CARDIOVASCULAR: Regular rhythm. LUNGS: Decreased breath sounds bilaterally. ABDOMEN: Hypoactive bowel sounds. Soft, nontender, nondistended. EXTREMITIES: She has ulnar deviation of the fingers on both hands consistent with rheumatoid arthrit is. There is no edema and a negative Homans sign bilaterally in her legs. LABORATORY: White blood cell count 13.2, hemoglobin 8.5, platelets 77. Her electrolytes are normal. Her CK-MB was elevated at 20 on admission, but her troponin I was 0.01. CT angiogram showed a pulmonary vein thrombus extending into the left atrium with no central or segme ntal pulmonary embolism noted. There is an enlarging right infrahilar mass with worsening postobstru ctive atelectasis of the right lower lobe with an associated malignant right pleural effusion. ASSESSMENT: Ms. Reed is a 71-year-old female with: 1. Metastatic non-small cell lung cancer, currently on Keytruda immunotherapy. 2. Pulmonary vein and left atrial thrombus, symptomatic. 3. Hypoxia secondary to the above. 4. Rheumatoid arthritis. 5. Hypertension. PLAN: 1. I discussed the overall diagnosis and prognosis with the patient and her family. They understand this setting. There is a chance of the Lovenox. We will treat the clot, but that she cannot be off the anticoagulation and cannot miss any doses. She is comfortable giving herself injections at home . I would recommend that we have the nurses teach her how to do this and work on getting the Lovenox for her at home. 2. She will need oxygen supplementation at home and my understanding is that is being worked on by juliette harrell community case manager. 3. She is due for next cycle of treatment next week in our office, she already has this followup and further recommendations will rely on how she is doing at that time. 4. We will be happy to follow up as an outpatient. Please let us know if she needs any further help .
[2017-05-23] MEDS: Sodium Chloride 0.9% 1,000 ML IV SCH (04:31)
--- NOTE | 2017-05-23 05:21 | PDOC.FM ---
- Subjective Subjective: Patient doing well this AM. States she is feeling a lot better and her breathing has improved. Denies any shortness or chest pain. Eating well. She would like to go home today if possible. - Objective MAR Reviewed: Yes Vital Signs & Weight: Vital Signs (12 hours) Temp Pulse Resp BP Pulse Ox 05/23/17 04:34 97.7 F 96 16 107/66 93 L 05/23/17 00:07 98.2 F 95 16 106/55 L 94 L 05/22/17 20:00 98.0 F 95 12 95 05/22/17 19:39 98.0 F 95 12 103/63 95 Weight Admit Weight 53.155 kg Weight 54.25 kg I&O: 05/21/17 05/22/17 05/23/17 06:59 06:59 06:59 Intake Total 1080 300 Balance 1080 300 Result Diagrams: 05/23/17 05:06 05/21/17 13:48 <Charito Zuniga - Last Filed: 05/23/17 08:33> - Objective Vital Signs & Weight: Vital Signs (12 hours) Temp Pulse Resp BP Pulse Ox 05/23/17 13:00 98.9 F 90 18 132/77 98 05/23/17 08:00 98.2 F 92 16 99 05/23/17 07:45 98.2 F 92 16 122/79 99 05/23/17 04:34 97.7 F 96 16 107/66 93 L Weight Admit Weight 53.155 kg Weight 57.606 kg I&O: 05/22/17 05/23/17 05/24/17 06:59 06:59 06:59 Intake Total 1080 300 360 Balance 1080 300 360 Result Diagrams: 05/23/17 05:06 05/21/17 13:48 <Melanie Fraser - Last Filed: 05/23/17 16:28> Phys Exam - Physical Examination Constitutional: NAD NC in place Respiratory: no wheezing dec BS at RUL/RLL Cardiovascular: RRR 3/6 systolic murmur Gastrointestinal: soft, non-tender, no distention, positive bowel sounds Musculoskeletal: no edema, pulses present Psychiatric: normal affect, A&O x 3 <Charito Zuniga - Last Filed: 05/23/17 08:33> Dx/Plan (1) Pulmonary venous thrombosis Code(s): I26.99 - OTHER PULMONARY EMBOLISM WITHOUT ACUTE COR PULMONALE Status : Acute (2) Squamous cell carcinoma of lung, stage IV Code(s): C34.90 - MALIGNANT NEOPLASM OF UNSP PART OF UNSP BRONCHUS OR LUNG Status: Acute (3) Hypoxia Code(s): R09.02 - HYPOXEMIA Status: Acute (4) Elevated CK-MB level Code(s): R74.8 - ABNORMAL LEVELS OF OTHER SERUM ENZYMES Status: Acute (5) Thrombocytopenia Code(s): D69.6 - THROMBOCYTOPENIA, UNSPECIFIED Status: Acute (6) Leukocytosis Code(s): D72.829 - ELEVATED WHITE BLOOD CELL COUNT, UNSPECIFIED Status: Acute (7) Chronic low back pain Code(s): M54.5 - LOW BACK PAIN; G89.29 - OTHER CHRONIC PAIN Status: Acute (8) Hypothyroidism Code(s): E03.9 - HYPOTHYROIDISM, UNSPECIFIED Status: Acute (9) Rheumatoid arthritis Code(s): M06.9 - RHEUMATOID ARTHRITIS, UNSPECIFIED Status: Acute - Plan Plan: 1. Acute Hypoxic Respiratory Failure 2/2 RT Pulmonary Vein Thrombosis 2/2 #2 - Initially hypoxic at home at 79-80% on RA. - Improved with 2L NC with mid 90s sats. - Dr. Fan of CV surgery was called who recommend no surgical intervention, cont anticoagulation and prognosis is poor. - Also d/w Dr. Barrow of Cards who recommended lifetime anticoagulation. - Given therapeutic lovenox in the ED. Cont th lovenox. - Per CHEST guidelines, pts with thrombosis and malignancy, recommend LMWH over NOACs for at least 3mo. - Dr. Holder of Onc consulted who agrees with LMWH. Appreciate recs. - consulted for home O2 and lovenox injections. - Lovenox increased to 60mg BID due to subtherapeutic anti-Xa level and continues to be subtherapeutic at 0.10. D/w with pharmacy in regards to further increasing dose as she is thrombocytopenic. Recommends keeping at 60mg BID for now. However, if patient is not able to be discharged today will inc night time dose to 70mg and check anti-xa level. 2. Stage IV SCC Lung Cancer - Followed by Dr. Marrero of Oncology and currently receiving chemotherapy with Keytruda every 3 wks. - CT done today showing an enlarging RT infrahilar mass and stable speculated nodules at BL upper lobes with concern for possible metastasis. - Dr. Holder infection prevention coordinator this weekend who recommends follow-up with Dr. Marrero for further management. - Has follow-up appt scheduled on 05/26/17. 3. Thrombocytopenia - pt will thrombocytopenia during previous hospitalization with resolution. - 2/2 to #2. - Stable currently. - D/w with Dr. Holder who recommends cont th lovenox unless plt <40,000. Cont to monitor closely. 4. Elevated CK-MB level - initial CK-MB level of 20.9, trending upward to 27.1 and then back down to 22.2 - likely 2/2 #1 - trops negative - pt asymptomatic 5. COPD - not on any home medications for COPD - duonebs prn 6. RA - continue home plaquenil, tizanidine, and diclofenac 7. Hypothyroidism - continue home synthroid 8. Depression - continue home citalopram 9. GERD - continue home ranitidine Dispo: Stable for discharge pending home O2 and lovenox injections. CM has been consulted. Has follow-up appt with Dr. Marrero of Heme/Onc on 05/26/17. <Charito Zuniga - Last Filed: 05/23/17 08:33> Attending Addendum - Attending Addendum Date/Time: 05/23/17 4775 I personally evaluated the patient and discussed the management with Dr. Zuniga. I agree with the History, Examination, Assessment and Plan documented above with any addition or exceptions noted below. [id number] still subtherapeutic on icnreased lovenox. Will try to get home lovenox arranged with case management for discharge today. If she goes today, will go on 60 bid of lovenox. If she stays, will increase to 70 mg bid and repeat [id number]. <Melanie Fraser - Last Filed: 05/23/17 16:28>
[2017-05-23] MEDS: Levothyroxine Sodium 125 MCG TAB PO SCH (05:45)
[2017-05-23 06:31] LABS: Band 10 % (5-11); Hemoglobin 8.1 g/dL (12.0-16.0); Hypochromia SLIGHT = 6-15 cells (100X) (0-5/hpf); Lymphocytes 26 % (21-51); MDiff Complete? YES; Mean Corpuscular HGB CONC 31.7 g/dL (32.0-36.0); Mean Corpuscular Hemoglobin 30.4 pg (27.0-31.0); Mean Platelet Volume 8.8 fL (7.4-10.4); Metamyelocyte 5 % (0-0); Monocytes 16 % (0-10); Myelocyte 2 % (0-0); Neutrophil 42 % (42-75); PLT Morphology Comment Appears Decreased; Platelet Count 72 thou/uL (130-400); RBC Distribution Width 16.2 % (11.5-14.5); Red Blood Cell (RBC) Count 2.65 mill/uL (4.20-5.40); White Blood Cell (WBC) Count 12.1 thou/uL (4.8-10.8)
[2017-05-23 06:55] LABS: INR-International Normal Ratio 1.2; Prothrombin Time 15.4 SEC (12.0-14.7)
[2017-05-23] MEDS: Docusate 100 MG CAP PO SCH ×2 (08:52→20:36)
[2017-05-23] MEDS: Famotidine 20 MG TAB PO SCH ×2 (08:52→20:36)
[2017-05-23] MEDS: Citalopram 20 MG TAB PO SCH (08:52)
[2017-05-23] MEDS: Enoxaparin Sodium 60 MG/0.6 ML SYRINGE SC SCH (09:49)
[2017-05-23] MEDS: Hydroxychloroquine Sulfate 200 MG TAB PO SCH (09:49)
[2017-05-23] MEDS: HYDROcodone/Acetaminophen 5/325 mg Tablet PO PRN (20:43)
[2017-05-23] MEDS: Enoxaparin Sodium 80 MG/0.8 ML SYRINGE SC SCH (20:48)
[2017-05-24] MEDS: Levothyroxine Sodium 125 MCG TAB PO SCH (06:03)
[2017-05-24 06:49] LABS: Band 11 % (5-11); Differential Comment Immature Cell(s); Eosinophils 2 % (0-10); Hemoglobin 8.4 g/dL (12.0-16.0); Lymphocytes 13 % (21-51); MDiff Complete? YES; Mean Corpuscular HGB CONC 31.5 g/dL (32.0-36.0); Mean Corpuscular Volume 95.3 fl (81.0-99.0); Mean Platelet Volume 8.5 fL (7.4-10.4); Metamyelocyte 4 % (0-0); Monocytes 16 % (0-10); Myelocyte 1 % (0-0); Neutrophil 45 % (42-75); PLT Morphology Comment Appears Decreased; Platelet Count 81 thou/uL (130-400); RBC Distribution Width 16.3 % (11.5-14.5); Reactive Lymphocytes 7 % (0-10); Red Blood Cell (RBC) Count 2.79 mill/uL (4.20-5.40); White Blood Cell (WBC) Count 11.4 thou/uL (4.8-10.8)
[2017-05-24] MEDS: Docusate 100 MG CAP PO SCH (09:11)
[2017-05-24] MEDS: Citalopram 20 MG TAB PO SCH (09:11)
[2017-05-24] MEDS: Hydroxychloroquine Sulfate 200 MG TAB PO SCH (09:11)
[2017-05-24] MEDS: Famotidine 20 MG TAB PO SCH (09:12)
[2017-05-24] MEDS: Enoxaparin Sodium 80 MG/0.8 ML SYRINGE SC SCH (09:17)
--- NOTE | 2017-05-24 10:13 | PDOC.FM ---
- Subjective Subjective: FAUSTO overnight, VSS, no new complaints. Failed Walk w/o O2 this AM again down to low 80's. Form refilled out for home O2 w/ anticipated d/c today. - Objective MAR Reviewed: Yes Vital Signs & Weight: Vital Signs (12 hours) Temp Pulse Resp BP Pulse Ox 05/24/17 07:25 99.4 F 90 18 140/87 98 05/24/17 05:20 98 Weight Admit Weight 53.155 kg Weight 57.266 kg I&O: 05/23/17 05/24/17 05/25/17 06:59 06:59 06:59 Intake Total 300 720 Balance 300 720 Result Diagrams: 05/24/17 06:05 05/21/17 13:48 <Konstantin Manriquez - Last Filed: 05/24/17 10:11> - Objective Vital Signs & Weight: Vital Signs (12 hours) Temp Pulse Resp BP Pulse Ox 05/24/17 08:00 99.4 F 90 18 98 05/24/17 07:25 99.4 F 90 18 140/87 98 05/24/17 05:20 98 Weight Admit Weight 53.155 kg Weight 57.266 kg I&O: 05/23/17 05/24/17 05/25/17 06:59 06:59 06:59 Intake Total 300 720 Balance 300 720 Result Diagrams: 05/24/17 06:05 05/21/17 13:48 <Mukesh Schneider - Last Filed: 05/24/17 11:42> Phys Exam - Physical Examination Constitutional: NAD Respiratory: clear to auscultation bilateral Cardiovascular: RRR Gastrointestinal: soft, non-tender Musculoskeletal: pulses present Neurological: moves all 4 limbs Psychiatric: A&O x 3 Skin: cap refill <2 seconds <Konstantin Manriquez - Last Filed: 05/24/17 10:11> Dx/Plan (1) Pulmonary venous thrombosis Code(s): I26.99 - OTHER PULMONARY EMBOLISM WITHOUT ACUTE COR PULMONALE Status : Acute Plan: Evaluated by CV surg w/o surgical intervention indicated at this time Cont. w/ therapeutic lovenox for 3-6 months Seen by onc who agrees w/ plan Will likely need to be on prison anticoagulation 2/2 unprovoked VTE in malignancy upon completion of lovenox Script sent into new pharmacy today to see if funding will be available. CM on board. Plan for d/c home if able to afford lovenox Will plan to write for NoAC if unable to get lovenox (2) Squamous cell carcinoma of lung, stage IV Code(s): C34.90 - MALIGNANT NEOPLASM OF UNSP PART OF UNSP BRONCHUS OR LUNG Status: Acute Plan: Cont. w/ keytruda per Onc Pt w/ f/u appointment w/ Dr. Marrero this week (3) Thrombocytopenia Code(s): D69.6 - THROMBOCYTOPENIA, UNSPECIFIED Status: Acute Plan: Stable from admission Will cont. to monitor in the outpatient setting <Konstantin Manriquez - Last Filed: 05/24/17 10:11> Attending Addendum - Attending Addendum Date/Time: 05/24/17 1142 I personally evaluated the patient and discussed the management with Dr. Manriquez. I agree with the History, Examination, Assessment and Plan documented above with any addition or exceptions noted below. Porsha is stbale fo dsicahrge with home oxygen and lovenox therapy. <Mukesh Schneider A - Last Filed: 05/24/17 11:42>
--- NOTE | 2017-05-24 11:41 | DIS-2 ---
DATE OF ADMISSION: 05/21/2017 DATE OF DISCHARGE: 05/24/2017 ADMITTING ATTENDING: Dr. Urias. DISCHARGE ATTENDING: Dr. Schneider. RESIDENT: Konstantin Manriquez M.D. CONSULTATIONS: Oncology, Dr. Holder. PROCEDURES: None. PRIMARY DIAGNOSIS: Pulmonary vein thrombosis. SECONDARY DIAGNOSES: 1. Stage IV squamous cell carcinoma of the lung. 2. Thrombocytopenia. 3. Hypothyroidism. 4. Rheumatoid arthritis. 5. Chronic obstructive pulmonary disease. IMAGING: CTA chest on 05/21/2017 showing thrombus present within the right inferior pulmonary vein extending to the left atrium and enlargement of the right infrahilar mass with worsening postobstructive atelectasis in the right lower lobe associated with a malignant right pleural effusion. Spiculated nodules in both upper lobes, which are stable, and no central or segmented pulmonary embolus. The patient also with stable emphysema per this imaging study. DISCHARGE MEDICATIONS: 1. Lovenox 60 mg subcutaneous b.i.d. 2. Tylenol 650 mg p.o. q.6 hours as needed for pain. 3. Citalopram 20 mg p.o. daily. 4. Diclofenac 50 mg p.o. b.i.d. 5. Colace 100 mg p.o. b.i.d. 6. Snowflake 5/325 one tab p.o. q.4 hours p.r.n. for pain. 7. Plaquenil 200 mg p.o. daily. 8. Synthroid 125 mcg p.o. daily. 9. Zofran 4 mg p.o. q.6 hours as needed for nausea. 10. Ranitidine 150 mg p.o. b.i.d. 11. Tizanidine 4 mg p.o. b.i.d. 12. Keytruda infusion q.3 weeks per Oncology. DISCONTINUED MEDICATIONS: None. HISTORY OF PRESENT ILLNESS: The patient is a pleasant 71-year-old female with past medical history of stage IV metastatic squamous cell lung carcinoma, who presented to the ER after being found to be hypoxic in the low 80s on room air at home. Patient upon arrival to the ER was scanned with a CT angiogram showing a venous thromboembolism in the right inferior pulmonary vein with extension to the left atrium. CV Surgery was contacted and the patient was not felt to be a surgical candidate and was started on therapeutic Lovenox at this time. Dr. Holder of Oncology was also consulted, who agreed with this plan. The patient remained stable, requiring 2 liters O2 to maintain O2 sats above 92% . The patient failed walking trial on room air morning of discharge and order for home O2 was written. Therapeutic Lovenox dosage of 60 mg b.i.d. subcutaneous was written and approved by insurance, which the pharmacist at [facility] guaranteed she would be able to excelsior picker prescription on the day of discharge. Patient with followup with Dr. Marrero scheduled for Wednesday this week and advised to follow-up with PCP this Wednesday. Discussed plan for discharge with Dr. Holder of Oncology who agreed with with close outpatient follow-up. DISPOSITION: Stable. DISCHARGE INSTRUCTIONS: 1. Location: Home with home health. 2. Followup: Follow up with primary care provider in 7 days. Follow up with Oncology, Dr. Marrero, on 05/26/2017. 3. Activity: Cardiopulmonary limits. MTDD
[2017-05-24 12:21] VITALS: BP 133/82; TEMP 98.3
== END 2017-05-24 15:19 | disposition home health service (06) | DRG 175 ==
LOC: ERS 13:19 → 2NO 15:25 → ONC 05-22 17:20
PROVIDERS: ADMIT Family Medicine; ATTEND Family Medicine
DX: I26.99 Other pulmonary embolism without acute cor pulmonale (principal); J96.01 Acute respiratory failure with hypoxia; J91.0 Malignant pleural effusion; D69.6 Thrombocytopenia, unspecified; J44.9 Chronic obstructive pulmonary disease, unspecified; C34.90 Malignant neoplasm of unspecified part of unspecified bronchus or lung; J98.11 Atelectasis; E03.9 Hypothyroidism, unspecified; M06.9 Rheumatoid arthritis, unspecified; Z79.899 Other long term (current) drug therapy; F17.210 Nicotine dependence, cigarettes, uncomplicated; I10 Essential (primary) hypertension; F32.9 Major depressive disorder, single episode, unspecified; G89.29 Other chronic pain; M54.9 Dorsalgia, unspecified; K21.9 Gastro-esophageal reflux disease without esophagitis
CPT/HCPCS: 36415; 71045; 71275; 80053; 82550; 82553; 83880; 84484; 85025; 85060; 85520; 85610; 85730; 96372; A4216; J1642; J1650

== ENCOUNTER 2017-05-26 10:21 | Day surgery (SDC) | payer MEDICARE, MEDICAID ==
--- NOTE | 2017-05-21 15:26 | PDOC.FPRHP ---
- History of Present Illness Chief Complaint: low o2 sats ED Course: Patient received Lovenox 1mg/kg for a pulmonary vein thrombosis found on CTA in the ED. - Allergies/Adverse Reactions Allergies Allergy/AdvReac Type Severity Reaction Status Date / Time tramadol Allergy Mild Rash Verified 09/17/16 08:52 - Home Medications Medication Instructions Recorded Confirmed Type Ranitidine HCl 150 mg PO BID 06/01/13 04/29/17 History Hydroxychloroquine Sulfate 200 mg PO DAILY 03/16/16 04/29/17 History [Plaquenil] tiZANidine HCl [Tizanidine HCl] 4 mg PO BID PRN 03/16/16 04/29/17 History Citalopram Hydrobromide 20 mg PO DAILY 09/17/16 04/29/17 History [Citalopram HBr] Diclofenac Sodium 50 mg PO BID 04/29/17 04/29/17 History Levothyroxine Sodium [Tirosint] 125 mcg PO DAILY 04/29/17 04/29/17 History Amoxicillin/Potassium Clav 1 each PO Q12H #20 tablet 04/30/17 Rx [Augmentin 875-125 Tablet] - History PMHx: stage iv lung ca, tobacco abuse PSHx: none FHx: NA Social: current smoker, denies alcohol and drugs - Vital signs BP: 114/84 HR: 89 RR: 28 Tmax: Pox: 94% on 2L Wt: 52.6kg FMR H&P: Upper Level - Plan Date/Time: 05/21/17 1519 I, [], have evaluated this patient and agree with findings/plan as outlined by chief of internal medicine resident. Pertinent changes/additions are listed here.
--- NOTE | 2017-05-21 16:24 | PDOC.FPRHP ---
- Allergies/Adverse Reactions Allergies Allergy/AdvReac Type Severity Reaction Status Date / Time tramadol Allergy Mild Rash Verified 09/17/16 08:52 - Home Medications Medication Instructions Recorded Confirmed Type Ranitidine HCl 150 mg PO BID 06/01/13 04/29/17 History Hydroxychloroquine Sulfate 200 mg PO DAILY 03/16/16 04/29/17 History [Plaquenil] tiZANidine HCl [Tizanidine HCl] 4 mg PO BID PRN 03/16/16 04/29/17 History Citalopram Hydrobromide 20 mg PO DAILY 09/17/16 04/29/17 History [Citalopram HBr] Diclofenac Sodium 50 mg PO BID 04/29/17 04/29/17 History Levothyroxine Sodium [Tirosint] 125 mcg PO DAILY 04/29/17 04/29/17 History Amoxicillin/Potassium Clav 1 each PO Q12H #20 tablet 04/30/17 Rx [Augmentin 875-125 Tablet] - History PMHx: PSHx: FHx: Social: - Vital signs BP: [] HR: [] RR: [] Tmax: [] Pox: []% on [] Wt: [] FMR H&P: Upper Level - Plan Date/Time: 05/21/17 1533 I, [], have evaluated this patient and agree with findings/plan as outlined by international operations manager resident. Pertinent changes/additions are listed here.
[2017-05-26] MEDS ORDERED: Sodium Chloride 0.9% 30 ML ONE (10:30)
[2017-05-26] MEDS ORDERED: Pembrolizumab 200 MG in Sodium Chloride 0.9% 250 ML 250 ML IV SCH (11:00)
== END 2017-05-26 12:44 | disposition home or self-care (01) ==
LOC: ONC/OP 10:21
PROVIDERS: ATTEND Internal Medicine Medical Oncology
DX: Z51.11 Encounter for antineoplastic chemotherapy (principal); C34.90 Malignant neoplasm of unspecified part of unspecified bronchus or lung; E03.8 Other specified hypothyroidism; I26.99 Other pulmonary embolism without acute cor pulmonale; D69.6 Thrombocytopenia, unspecified; M06.9 Rheumatoid arthritis, unspecified; J44.9 Chronic obstructive pulmonary disease, unspecified; Z88.5 Allergy status to narcotic agent; Z79.899 Other long term (current) drug therapy
CPT/HCPCS: 36415; 80053; 82248; 83615; 84100; 84443; 84550; 96413; A4216; J1642; J7050; J9271

== ENCOUNTER 2017-06-11 10:45 | Outpatient (CLI) | payer MEDICARE, MEDICAID ==
--- NOTE | 2017-06-11 11:28 | RAD ---
TWO VIEW CHEST: Comparison: 05-21-17 Indication: Dyspnea. FINDINGS: Dense opacification of mid inferior right chest has progressed. There are stable chronic left rib fra ctures. Cardiac silhouette and mediastinal structures are prominent. There is slight blunting of the left costophrenic sulcus which may relate to small volume pleural fluid. IMPRESSION: 1. Density of the mid inferior right hemithorax. Patient has a diagnosed large mass occupying the inf erior right hemithorax. Adjacent pleural fluid is likely present. 2. Enlarged cardiac silhouette. 3. Probable minimal left pleural fluid. POS: [facility]
== END 2017-06-11 10:46 | disposition home or self-care (01) ==
LOC: RAD 10:45
PROVIDERS: ATTEND Internal Medicine
DX: R06.00 Dyspnea, unspecified (principal); I51.7 Cardiomegaly; R91.8 Other nonspecific abnormal finding of lung field
CPT/HCPCS: 71046

== ENCOUNTER 2017-06-11 12:38 | Inpatient (IN) | payer MEDICARE, MEDICAID ==
[2017-06-11 13:27] LABS: Hemoglobin 7.7 g/dL (12.0-16.0); Mean Corpuscular HGB CONC 31.1 g/dL (32.0-36.0); Mean Corpuscular Hemoglobin 30.5 pg (27.0-31.0); Mean Platelet Volume 10.1 fL (7.4-10.4); Platelet Count 106 thou/uL (130-400); RBC Distribution Width 16.6 % (11.5-14.5); Red Blood Cell (RBC) Count 2.54 mill/uL (4.20-5.40)
[2017-06-11 13:32] LABS: PTT 37.2 SEC (22.9-36.1)
[2017-06-11 13:33] LABS: INR-International Normal Ratio 1.2; Prothrombin Time 14.9 SEC (12.0-14.7)
[2017-06-11 13:52] LABS: Troponin I 0.055 ng/mL (< 0.028)
[2017-06-11 13:57] LABS: ALT (SGPT) 7 U/L (8-55); AST (SGOT) 11 U/L (5-34); Alkaline Phosphatase 75 U/L (40-150); Anion Gap 12 mmol/L (10-20); Anisocytosis SLIGHT = 6-15 cells (100X) (0-5/hpf); BUN (Urea Nitrogen) 28 mg/dL (9.8-20.1); Band 6 % (5-11); Bilirubin, Total 0.5 mg/dL (0.2-1.2); CK (CPK) 49 U/L (29-168); Calc. Creatinine Clearance 0 mL/min (70-130); Calcium 11.4 mg/dL (7.8-10.44); Carbon Dioxide 34 mmol/L (23-31); Chloride 98 mmol/L (98-107); Eosinophils 2 % (0-10); Estimated GFR-MDRD 70; Globulin 3.4 g/dL (2.4-3.5); Glucose 103 mg/dL (80-115); Hypochromia SLIGHT = 6-15 cells (100X) (0-5/hpf); Lymphocytes 19 % (21-51); MDiff Complete? YES; Monocytes 6 % (0-10); Neutrophil 64 % (42-75); Nucleated RBC 2 % (0); PLT Morphology Comment Appears Decreased; Polychromasia SLIGHT = 2-3 cells (100X) (0-2/hpf); Potassium 3.9 mmol/L (3.5-5.1); Protein, Total 6.4 g/dL (6.0-8.3); Reactive Lymphocytes 3 % (0-10); Sodium 140 mmol/L (136-145); Vacuoles SLIGHT
[2017-06-11 15:14] LABS: Bilirubin Small (Negative); Blood, Urine Negative (Negative); Clarity CLEAR (Clear); Glucose, Urine (Dipstick) Negative (Negative); Leukocyte Negative (Negative); Nitrite Negative (Negative); Protein, Urine (Dipstick) 30 mg/dL (Neg-Trace); Specific Gravity, Urine 1.023 (1.002-1.036)
[2017-06-11 15:16] LABS: Bacteria/HPF None Seen HPF (None Seen); RBC/HPF 0-3 HPF (0-3); WBC/HPF 0-3 HPF (0-3)
[2017-06-11] MEDS ORDERED: Piperacillin/Tazobactam 3.375 GM in Sodium Chloride 0.9% 100 ML IVPB SCH (15:30)
[2017-06-11 15:32] LABS: Crystals/HPF None Seen HPF (Negative); Hyaline Casts/LPF 0-3 HYALINE CAST LPF (0-3 Hyaline); Yeast-All Forms None Seen HPF (None Seen)
[2017-06-11] MEDS ORDERED: Acetaminophen 325 MG TAB PO PRN (15:40)
[2017-06-11] MEDS ORDERED: Ondansetron ODT 4 MG TAB PO PRN (15:40)
[2017-06-11] MEDS ORDERED: Acetaminophen 650 MG Suppository PR PRN (15:40)
[2017-06-11] MEDS ORDERED: Ondansetron HCl/PF 4 MG/2 ML Vial IVP PRN (15:40)
[2017-06-11] MEDS ORDERED: Sodium Chloride 0.9% 1,000 ML IV SCH (16:00)
[2017-06-11] MEDS: Sodium Chloride 0.9% 1,000 ML IV SCH (16:26)
--- NOTE | 2017-06-11 16:39 | PDOC.FPRHP ---
- History of Present Illness Chief Complaint: SOB, Decreased O2 saturation History of Present Illness: This is a 71 yo AA female with a pmh of Stage IV squamous cell carcinoma who was sent over from Dr. Louis's office due to O2 sats in the 80's. Pt reports feeling weak yesterday. Did not eat and was very weak to get up and move around. Per family went in to see Dr. Louis today and had her portable oxygen. They had to bump up O2 to high flow 4 L because "she wasn't feeling it. " She then ran out of oxygen and sats were low. Talked with Dr. Louis. He discussed options about going to hospice or coming to the hospital. Pt was agreeable to hospice but césar said family wasn't quite ready and at this time the family and patient decided to come to ER. At César's office her O2 sat was in the low 80s and BP was 70/50. When she got her she needed to be put on a non rebreather mask. Denied any fever. Reported having chills. Denied any chest pain. Reported SOB. Denied n/v/d/c. Also family says she hasn't had much of an appetite the last few days. Pt recently discharge from [facility] [place] due to the same problem on 05/21 - Allergies/Adverse Reactions Allergies Allergy/AdvReac Type Severity Reaction Status Date / Time tramadol Allergy Mild Rash Verified 09/17/16 08:52 - Home Medications Medication Instructions Recorded Confirmed Type Ranitidine HCl 150 mg PO BID 06/01/13 06/11/17 History Hydroxychloroquine Sulfate 200 mg PO DAILY 03/16/16 06/11/17 History [Plaquenil] tiZANidine HCl [Tizanidine HCl] 4 mg PO BID PRN 03/16/16 06/11/17 History Citalopram Hydrobromide 20 mg PO DAILY 09/17/16 06/11/17 History [Citalopram HBr] Diclofenac Sodium 50 mg PO BID 04/29/17 06/11/17 History Levothyroxine Sodium [Tirosint] 125 mcg PO DAILY 04/29/17 06/11/17 History Acetaminophen [Tylenol Regular 650 mg PO Q6H PRN 05/21/17 06/11/17 History Strength] Enoxaparin Sodium [Lovenox] 60 mg SC 09,2099 #60 syringe 05/24/17 06/11/17 Rx HYDROcodone/Acetaminophen 1 each PO Q4HR PRN 06/11/17 06/11/17 History [Hydrocodone-Acetamin 5-325 mg] Ondansetron HCl [Zofran] 4 mg PO Q4HR PRN 06/11/17 06/11/17 History - History PMHx: 1. Penitentiary tobacco use 2. Pulmonary squamous cell carcinoma 3. COPD 4. HTN 5. Arthritis - rheumatoid, osteo 6. Hypothroidism 7. hx of depression PSHx: 1. Knee surgery 2. Cubial tunnel repair 3. Carpal tunnel repair 4. Hysterectomy FHx: Mother: Heart disease Father: unknown Siblings: Lung cancer (sister), throat cancer (brother) Children: Prostate cancer (son) Social: Penitentiary tobacco. Denies alcohol and drug use. Lives with her son. - Review of Systems General: reports: fever/chills, weight/appetite/sleep changes. denies: night sweats Eyes: denies: eye pain, vision changes, other ENT: denies: nasal congestion, rhinorrhea, other Respiratory: reports: shortness of breath. denies: cough, congestion, exercise intolerance, other Cardiovascular: denies: chest pain, palpitation, edema, paroxysmal nocturnal dyspnea, orthopnea, other Gastrointestinal: denies: nausea, vomiting, diarrhea, constipation, abdominal pain, GI bleeding Genitourinary: denies: incontinence, dysuria, polyuria, discharge Skin: denies: rashes, lesions, jaundice, itching Musculoskeletal: denies: pain, tenderness, stiffness, swelling, arthritis/ arthralgias Neurological: reports: weakness. denies: numbness, syncope, seizure Psychological: denies: anxiety, depression - Vital signs t 98.5 P 75 RR 27 O2 99% on 4L nc Weight 53.161 kg - Physical Exam Constitutional: NAD, awake, alert and oriented HEENT: normocephalic and atraumatic -HEENT: mucous membranes dry Neck: supple, no LAD, no thyromegaly, no bruits Chest: no-tender to palpation, no lesions Heart: RRR, pulses present, no edema -Heart: systolic murmur noted -Lungs: decreased breath sounds on R. side. Decreased air movement bilaterally. Mild crackles noted bilaterally Abdomen: soft, non-tender, bowel sounds present, no masses/distention, no hernias Musculoskeletal: normal structure, normal tone, ROM grossly normal Neurological: no focal deficit, normal sensation Skin: no rash/lesions, good turgor, capillary refill <2 seconds Psychiatric: normal mood and affect, good judgment and insight FMR H&P: Results - Labs Result Diagrams: 06/11/17 13:06/11/17 13: Lab results: WBC 27.0 thou/uL (4.8-10.8) H 06/11/17 13: Hgb 7.7 g/dL (12.0-16.0) L 06/11/17 13: Hct 24.9 % (36.0-47.0) L 06/11/17 13: MCV 98.0 fl (81.0-99.0) 06/11/17 13: Plt Count 106 thou/uL (130-400) L 06/11/17 13: Band Neuts % (Manual) 6 % (5-11) 06/11/17 13: Sodium 140 mmol/L (136-145) 06/11/17 13:01 Potassium 3.9 mmol/L (3.5-5.1) 06/11/17 13: Chloride 98 mmol/L (98-107) 06/11/17 13: Carbon Dioxide 34 mmol/L (23-31) H 06/11/17 13:01 BUN 28 mg/dL (9.8-20.1) H 06/11/17 13: Creatinine 0.96 mg/dL (0.6-1.1) 06/11/17 13: Glucose 103 mg/dL (80-115) 06/11/17 13:01 Lactic Acid 3.6 mmol/L (0.5-2.2) H 06/11/17 13:01 Calcium 11.4 mg/dL (7.8-10.44) H 06/11/17 13:01 Total Bilirubin 0.5 mg/dL (0.2-1.2) 06/11/17 13:01 AST 11 U/L (5-34) 06/11/17 13:01 ALT 7 U/L (8-55) L 06/11/17 13:01 Alkaline Phosphatase 75 U/L (40-150) 06/11/17 13:01 Creatine Kinase 49 U/L (29-168) 06/11/17 13:01 CK-MB (CK-2) 9.0 ng/mL (0-6.6) H* 06/11/17 13:01 B-Natriuretic Peptide 315.5 pg/mL (0-100) H 06/11/17 13:01 Serum Total Protein 6.4 g/dL (6.0-8.3) 06/11/17 13:01 Albumin 3.0 g/dL (3.4-4.8) L 06/11/17 13:01 Urine Ketones Negative mg/dL (Negative) 06/11/17 14:43 Urine Blood Negative (Negative) 06/11/17 14:43 Urine Nitrite Negative (Negative) 06/11/17 14:43 Ur Leukocyte Esterase Negative (Negative) 06/11/17 14:43 Urine RBC 0-3 HPF (0-3) 06/11/17 14:43 Urine WBC 0-3 HPF (0-3) 06/11/17 14:43 Ur Squamous Epith Cells 4-6 HPF (0-3) H 06/11/17 14:43 Urine Bacteria None Seen HPF (None Seen) 06/11/17 14:43 - Radiology Interpretation Chest x-ray Status: image reviewed by me, report reviewed by me (Shows minimal pleural effusion. Shows mass on R side) FMR H&P: A/P - Problem List (1) Squamous cell carcinoma of lung, stage IV Current Visit: No Status: Acute Code(s): C34.90 - MALIGNANT NEOPLASM OF UNSP PART OF UNSP BRONCHUS OR LUNG (2) Hospital-acquired pneumonia Current Visit: Yes Status: Acute Code(s): J18.9 - PNEUMONIA, UNSPECIFIED ORGANISM (3) Sepsis Current Visit: Yes Status: Acute Code(s): A41.9 - SEPSIS, UNSPECIFIED ORGANISM (4) Elevated troponin Current Visit: No Status: Acute Code(s): R74.8 - ABNORMAL LEVELS OF OTHER SERUM ENZYMES (5) Hyperlipidemia Current Visit: No Status: Acute Code(s): E78.5 - HYPERLIPIDEMIA, UNSPECIFIED (6) Hypothyroidism Current Visit: No Status: Acute Code(s): E03.9 - HYPOTHYROIDISM, UNSPECIFIED (7) Respiratory failure Current Visit: No Status: Acute Code(s): J96.90 - RESPIRATORY FAILURE, UNSP , UNSP W HYPOXIA OR HYPERCAPNIA (8) Rheumatoid arthritis Current Visit: No Status: Acute Code(s): M06.9 - RHEUMATOID ARTHRITIS, UNSPECIFIED - Plan Acute Hypoxic Respiratory Failure 2/ Stage IV SCC Lung Cancer and Pulmonary Vein Thrombosis with Sepsis -Patient requiring 4 L NC Satting 99% right now. CV -On Therapeuric Lovnox. Plan to continue anticoagulation with therapeutic lovenox. - Consulted oncology,Dr. medina- will follow recs - consult palliative care for continued care. Possible discussion of hospice. - O2 prn to keep sats > 92% - consult CM for discharge planning -See plan below for sepsis -Pulm- Dr. Neves consulted Sepsis 04/02 [facility] Acquried PNA -Likely post obstructive process. Did bedside Ultrasound for possible pleural effusion and thorancentesis. No fluid seen. More mass like. WBC 27, highest its ever been. Lactic Acid 3.6. Trend Lactic Acid Q2 hrs. BP low on admission and still low. RR increased and O2 need increased. Was using 2 L at home -Received 2 fluid boluses. NS@100 mls/hr -Vanc, Zosyn, Levaquin. Pharmacy to dose. Recently discharged on 05/24. -Procalcitonin pending, Urine Strep/Legionella pending -Blood cx, Urine cx pending Stage IV SCC Lung Cancer - Patient is followed by Dr. Marrero of Oncology and currently receiving chemotherapy with Keytruda every 3 wks. -Cxray shows lung mass and increased fluid -Onc consulted- Dr. Marrero- follow recs COPD - not on any home medications for COPD - recently quit smoking about 2 wks ago - duonebs prn for wheezing RA - continue home plaquenil, tizanidine, and diclofenac Hypothyroidism - continue home synthroid Depression - continue home citalopram GERD - continue home ranitidine FMR H&P: Upper Level - Pertinent history Pt is pleasant 71 yo BF who presents to ED sent over by Dr. Louis's office for hypoxia to the 80s but was found to have an empty O2 tank and also low SBP reportedly in the 60s. She has hx of stage IV SCC of the lung, COPD, and has an interval increase in her R sided pleural effusion. Pt reports that she has been nauseous for about 3 days and hasn't been eating or drinking, urinating normally, no burning. No cough, chest pain, non-productive, states she is not hurting anymore. I asked her if she felt short of breath since her tank was out and she states she knew something was different but didnt know what and doesn't feel SOB right now. Recent admission from hospital about 1 mo prior for a pulmonary vein embolism and started on anticoagulation. - Pertinent findings General: Pt appears cachectic, in no resp distress currently on 4 L NC but sating above 95. No acute distress Heart: RRR Pulm: poor effort, rales R sided and L base, mild wheezing throughout Adomen: soft, non tender, no suprapubic tenderness, fr[place] in place Ext: No cyanosis clubbing edema - Plan Date/Time: 06/11/17 1632 I, Tory Ayon, have evaluated this patient and agree with findings/plan as outlined by intern product marketing manager resident. Pertinent changes/additions are listed here. 1. Hypoxia 2/2 to interval worsening of R pleural effusion-admit IMCU, consult pulm, will obtain pleural fluid studies and perform thoracentesis 2. Dehydration-Will administer fluids and recheck lactate 3. Elevated WBC and lactate-possible sepsis, elevated above baseline, will empirically start coverage for HAP and de-escalate, recheck lactate in 4 hours, continue fluids. tai maynard levaquin, aleyda trough 4. Stage IV SCC-consult palliative and her onc Dr. Marrero, pt wants intubation only, consider hospice care 5. COPD-not in exacerbation, given duonebs prn, some wheezing on exam
[2017-06-11 16:54] LABS: Troponin I 0.037 ng/mL (< 0.028)
[2017-06-11 17:20] LABS: Lactic Acid 2.7 mmol/L (0.5-2.2)
[2017-06-11 19:35] LABS: Troponin I 0.035 ng/mL (< 0.028)
[2017-06-11] MEDS: Enoxaparin Sodium 60 MG/0.6 ML SYRINGE SC SCH (20:28)
[2017-06-11] MEDS ORDERED: Vancomycin HCl 1 GM in Sodium Chloride 0.9% 250 ML 250 ML IVPB SCH (21:00)
[2017-06-11] MEDS ORDERED: tiZANidine HCl 4 MG TAB PO PRN (21:00)
--- NOTE | 2017-06-11 21:45 | PRG ---
DATE OF SERVICE: 06/11/2017 This is a consult SUBJECTIVE: Ms. Reed is a patient of Dr. London. She is in the office today with blood pressure in the 60s. She was sent to the emergency room subsequently has been admitted. I was consulted to review the radiographs and evaluated for possible pleural effusion. Dr. Louis told me that she has lost 50 pounds in the last few months. She is not eating and not drinking. She was getting could treat her for nonsmall cell lung cancer and was doing well for a while, but then apparently is started clinically declining. She recently was identified as having a thrombus in her inferior pulmonary vein extending into the left atrium. PAST MEDICAL HISTORY: Remarkable for tobacco, COPD, hypertension, rheumatoid arthritis, hypothyroidism, and depression. SOCIAL HISTORY: She is not currently smoking or drinking. She is not a drug user. FAMILY HISTORY: Negative for lung disease in early age. There is a family history of lung cancer and throat cancer. REVIEW OF SYSTEMS: Remarkable for weakness earlier, which says she is feeling much better now. Ten-point review of systems otherwise negative. ALLERGY: She reports an allergy to TRAMADOL. MEDICATIONS: Prior to admission she was on ranitidine, Plaquenil, tizanidine, citalopram, diclofenac, Synthroid, Lovenox, hydrocodone, and Zofran. Apparently , she has been tried on Megace. PAST SURGICAL HISTORY: Remarkable for knee surgery, carpal tunnel surgery, and hysterectomy. PHYSICAL EXAMINATION: GENERAL: She is in no distress. She is resting comfortably, evaluated her earlier blood pressure was 85/58, heart rate is in the 80s, respiratory rate was in the teens. Oximetry is 99 on 3 liters. GENERAL: She appears cachectic. EYES: Pupils are equal and reactive. Sclerae is anicteric. Extraocular movements are full. NECK: Supple. LUNGS: Clear. HEART: Regular rhythm. LUNGS: Clear except for decreased breath sounds at her right base. CARDIOVASCULAR: Regular rhythm, no S3. ABDOMEN: Soft and nontender. EXTREMITIES: No clubbing, cyanosis, or edema. I reviewed all of her radiographs dating back several months. She has a dense atelectasis of her right lower lobe. On CT scan done actually about 3 weeks ago , she had no significant pleural effusion on the right. Chest radiograph showed no significant effusion, but she is hazy to right base as expected with her atelectasis. The residents do bedside ultrasound and did not identify fluid. IMPRESSION: 1. Dense atelectasis associated with nonsmall cell lung cancer. 2. Failure to thrive with extreme intravascular volume depletion. PLAN: Hydration. Dr. Louis felt she was a candidate for consideration for hospice. This will be explored while she is in the hospital for 50 minute consult greater than 50% of the time was spent in the coordinating care. KAVEH
[2017-06-12] MEDS: Sodium Chloride 0.9% 1,000 ML IV SCH ×3 (02:28→16:41)
[2017-06-12 05:00] LABS: ALT (SGPT) Less than 7 U/L (8-55); AST (SGOT) 10 U/L (5-34); Albumin 2.4 g/dL (3.4-4.8); Alkaline Phosphatase 63 U/L (40-150); Anion Gap 10 mmol/L (10-20); BUN (Urea Nitrogen) 21 mg/dL (9.8-20.1); Bilirubin, Total 0.3 mg/dL (0.2-1.2); Calc. Creatinine Clearance 61 mL/min (70-130); Calcium 9.6 mg/dL (7.8-10.44); Carbon Dioxide 29 mmol/L (23-31); Chloride 106 mmol/L (98-107); Estimated GFR-MDRD Greater than 90; Globulin 2.8 g/dL (2.4-3.5); Glucose 81 mg/dL (80-115); Protein, Total 5.2 g/dL (6.0-8.3); Sodium 141 mmol/L (136-145)
[2017-06-12] MEDS: Levothyroxine Sodium 125 MCG TAB PO SCH (05:47)
[2017-06-12 05:56] LABS: Band 14 % (5-11); Hemoglobin 6.9 g/dL (12.0-16.0); Lymphocytes 20 % (21-51); MDiff Complete? YES; Mean Corpuscular HGB CONC 31.4 g/dL (32.0-36.0); Mean Corpuscular Hemoglobin 30.2 pg (27.0-31.0); Mean Platelet Volume 9.7 fL (7.4-10.4); Metamyelocyte 1 % (0-0); Monocytes 7 % (0-10); Myelocyte 3 % (0-0); Neutrophil 53 % (42-75); Nucleated RBC 1 % (0); PLT Morphology Comment Appears Decreased; Platelet Count 67 thou/uL (130-400); RBC Distribution Width 16.7 % (11.5-14.5); Reactive Lymphocytes 2 % (0-10); Red Blood Cell (RBC) Count 2.28 mill/uL (4.20-5.40); White Blood Cell (WBC) Count 24.7 thou/uL (4.8-10.8)
--- NOTE | 2017-06-12 07:23 | PDOC.FM ---
- Subjective Subjective: CC: Tired HPI: Patient resting in bed comfortably. Nursing reports no events overnight. Discussed CODE status with patient again. States she still does not want chest compressions. States her daughter will be here later this morning. Will discuss snf care goals at this time. - Objective MAR Reviewed: Yes Vital Signs & Weight: Vital Signs (12 hours) Temp Pulse Resp BP Pulse Ox 06/12/17 04:19 98.0 F 96 16 93/60 95 06/11/17 23:57 98.8 F 90 17 97/65 100 06/11/17 20:00 98.1 F 86 16 98 06/11/17 19:26 98.1 F 86 16 86/52 L 98 Weight Weight 54.148 kg I&O: 06/11/17 06/12/17 06/13/17 06:59 06:59 06:59 Intake Total 1320 Output Total 300 Balance 1020 Result Diagrams: 06/12/17 04:07 06/12/17 04:07 EKG Reviewed by me: Yes (SR rate 90s on tele ) Radiology Reviewed by me: Yes <Damina Rothman - Last Filed: 06/12/17 10:36> - Objective Vital Signs & Weight: Vital Signs (12 hours) Temp Pulse Resp BP Pulse Ox 06/12/17 12:00 98.5 F 69 22 H 97/56 L 94 L 06/12/17 11:52 98.3 F 16 100 06/12/17 08:00 98.5 F 96 20 98 06/12/17 07:00 98.5 F 96 20 106/73 99 06/12/17 04:19 98.0 F 96 16 93/60 95 Weight Admit Weight 53.161 kg Weight 54.148 kg Most Recent Monitor Data Heart Rate from ECG 91 NIBP 98/62 I&O: 06/11/17 06/12/17 06/13/17 06:59 06:59 06:59 Intake Total 1320 350 Output Total 300 Balance 1020 350 Result Diagrams: 06/12/17 04:07 06/12/17 04:07 <Jose Boudreaux - Last Filed: 06/12/17 13:18> Phys Exam - Physical Examination Constitutional: NAD HEENT: sclera anicteric Respiratory: no wheezing, clear to auscultation bilateral Cardiovascular: RRR, no rub Gastrointestinal: soft, non-tender Musculoskeletal: no edema Neurological: non-focal, moves all 4 limbs Psychiatric: normal affect Alet and oriented. Answers questions appropriately. <Damian Rothman - Last Filed: 06/12/17 10:36> Dx/Plan (1) Acute respiratory failure with hypoxia Code(s): J96.01 - ACUTE RESPIRATORY FAILURE WITH HYPOXIA Status: Acute Plan: Improved with antibiotics and increase in oxygen. Likely 2/2 post obstructive process. - Will discuss lawyer real estate care with family today - consider consult to palliative care (2) Sepsis Code(s): A41.9 - SEPSIS, UNSPECIFIED ORGANISM Status: Acute QualifierTitle: Sepsis type: sepsis due to unspecified organism Qualified Code(s): A41.9 - Sepsis, unspecified organism Plan: Vanc/Levaquin day 2, Restarted zosyn since it fell off APR. Has had net positive 1 L fluid since admission - continue abx and IV fluids (3) Anemia Code(s): D64.9 - ANEMIA, UNSPECIFIED Status: Acute QualifierTitle: Anemia type: unspecified type Qualified Code(s): D64.9 - Anemia, unspecified Plan: Hemoglobin 6.9 this morning - typed and crossed matched 1 unit at admission, will transfuse followed by lasix 40 mg. May provide some symptomatic relief. (4) Volume depletion, extrarenal loss Code(s): E86.9 - VOLUME DEPLETION, UNSPECIFIED Status: Acute Plan: urine output low over night. continue IV fluids (5) Pulmonary venous thrombosis Code(s): I26.99 - OTHER PULMONARY EMBOLISM WITHOUT ACUTE COR PULMONALE Status : Acute Plan: Therapeutic lovenox (6) Squamous cell carcinoma of lung, stage IV Code(s): C34.90 - MALIGNANT NEOPLASM OF UNSP PART OF UNSP BRONCHUS OR LUNG Status: Acute QualifierTitle: Laterality: unspecified laterality Qualified Code(s): C34.90 - Malignant neoplasm of unspecified part of unspecified bronchus or lung Plan: Will discuss palliative care with patient and family today. (7) Thrombocytopenia Code(s): D69.6 - THROMBOCYTOPENIA, UNSPECIFIED Status: Acute Plan: monitor. currently at baseline. May need to switch anticoagulation if HIT becomes suspected. <Damian Rothman - Last Filed: 06/12/17 10:36> Attending Addendum - Attending Addendum Date/Time: 06/12/17 1317 I personally evaluated the patient and discussed the management with Dr. Rothman. I agree with the History, Examination, Assessment and Plan documented above with any addition or exceptions noted below. Mrs Reed is 71 yo AAF who presented to ED sent over by Dr. Louis's office - pulmonary medicine - for hypoxia to the 80s when she was found to have an empty O2 tank and also low Systolic BP reportedly in the 60s. She has hx of stage IV SCC of the lung, COPD, and was noted to have an interval increase in a R -sided pleural effusion. She has been nauseated for 3 days and hasn't been eating or drinking or urinating normally, but denies burning. No cough, chest pain. States she is not hurting anymore. Recent admission to the hospital about a month prior for a pulmonary embolus and was started on anticoagulation. PMHx: 1. Correction tobacco use 2. Pulmonary squamous cell carcinoma 3. COPD 4. HTN 5. Arthritis - rheumatoid, osteo 6. Hypothroidism 7. hx of depression 8. Stage IV SCCa Lung 9. Pulm embolus. General: Pt appears cachectic, in no resp distress currently on 4 L NC with SaO2 > 95. Feels much better this am. Heart: RRR, No murmur. Pulm: poor effort, dullness to percussion with decreased breath sounds and faint rales R-base posteriorly base, minimal wheezing throughout Adomen: soft, non tender, no organomegaly, masses, or tenderness, fr[place] in place Ext: No cyanosis, edema, clubbing but does have nailbed pallor. CXR RLL whiteout. WBC 24.7, Hb 6.9, Hct 21.9, Plts 67 A: Sepsis due to obstructive pneumonia RLL with hypoxemia Stage IV Squamous cell carcinoma lung Hx of Pulm embolus COPD Anemia & thrombocytopenia Dehydration P: Dr. Rothman will have a discussion with patient and daughter regarding goals of care. Palliative consult. Continue Vanc, Zosyn, Levaquin and IV fluids. I agree with transfusion 1 unit PRBCs. MD Bertram <Jose Boudreaux - Last Filed: 06/12/17 13:18>
[2017-06-12] MEDS: Hydroxychloroquine Sulfate 200 MG TAB PO SCH (08:42)
[2017-06-12] MEDS: Citalopram 20 MG TAB PO SCH (08:42)
[2017-06-12] MEDS: Enoxaparin Sodium 60 MG/0.6 ML SYRINGE SC SCH ×2 (08:42→20:14)
[2017-06-12] MEDS: Famotidine 20 MG TAB PO SCH ×2 (08:43→20:05)
[2017-06-12] MEDS ORDERED: Famotidine 20 MG TAB PO SCH (09:00)
[2017-06-12 09:33] VITALS: BMI 21.8
[2017-06-12] MEDS ORDERED: Furosemide 40 MG/4 ML VIAL SLOW IVP SCH (10:45)
[2017-06-12] MEDS: Piperacillin/Tazobactam 3.375 GM in Sodium Chloride 0.9% 100 ML IVPB SCH ×3 (11:29→23:04)
[2017-06-12] MEDS ORDERED: Vancomycin HCl 750 MG in Sodium Chloride 0.9% 250 ML 250 ML IVPB SCH (14:00)
--- NOTE | 2017-06-12 16:48 | CON ---
DATE OF CONSULTATION: 06/12/2017 REASON FOR CONSULTATION: Squamous cell carcinoma stage IV. HISTORY OF PRESENT ILLNESS: The patient was diagnosed with T4 N0 M1 a squamous cell carcinoma with b ilateral multilobar pulmonary metastasis in 08/2016. She had PD-L1, pressure at 95% and was started on Keytruda. Keytruda was started in 08/2016 and she has so far received 10 cycles at 3 weeks interv al. Initially, she had responded, but at last, CT scan dated 05/21/2017, she had definite progressio n of the tumor in the lung. The patient has been admitted on 06/11/2017 with hypoxemia and hypotensi on. She was also severely anemic. She was just started on broad spectrum antibiotics and a chest x- ray showed density in the mid inferior right hemithorax and cardiomegaly. She is currently on broad spectrum antibiotics and is receiving blood transfusion. The patient has noticed significant functio nal decline; however, she denies any pain. PHYSICAL EXAMINATION: GENERAL: Today, the patient is alert and oriented. VITAL SIGNS: Temperature 98.5, pulse 69, blood pressure 97/56, weight 119. HEENT: Unremarkable. CHEST: Vesicular breath sounds. HEART: S1, S2, regular rhythm. ABDOMEN: Soft. EXTREMITIES: Without pedal edema. LABORATORY DATA: CBC shows WBC of 24,700 with hemoglobin of 6.9 and platelet count of 67,000. Chemi stry profile shows normal BUN and creatinine. Albumin is 2.4. ASSESSMENT AND RECOMMENDATIONS: This patient has progressive disease while on Keytruda. She also boland s very poor performance status. I talked to the patient and had a lengthy discussion with her daught er. I think she should not receive additional treatment directed towards cancer and should be kept c omfortable under the care of hospice. Currently, she is on chemical code and DNR is actually more ap propriate. Thanks very much for asking me to participate in this patient's care.
--- NOTE | 2017-06-12 19:00 | PRG ---
DATE OF SERVICE: 06/12/2017 SUBJECTIVE: Ms. Reed says she feels much better. OBJECTIVE: VITAL SIGNS: Vital signs have been stable. Her blood pressure has consistently been greater than 90 systolic. She is afebrile, heart rates in the 60s, respiratory rates in the 20s, oximetry is 95 on 2 liters. LUNGS: Remarkable for distant breath sounds, her right base. HEART: Regular rhythm. ABDOMEN: Soft. EXTREMITIES: Without asymmetry. IMPRESSION: 1. Nonsmall cell lung cancer 2. Severe intravascular volume depletion secondary to anorexia associated with malignancy. 3. Anemia secondary to treatment of her malignancy and chronic disease. I do not feel that she has an acute pneumonia. Supportive care with IV hydration and comfort is the best option in my opinion. Placement issues pratik l need to be addressed soon. Cultures have been reviewed and blood cultures and urine catheter cultu re negative. She will continue with her current care. I would consider taking her off of Lovenox and just putting her on more of the newer anticoagulants. I would also consider discontinuing her IV antimicrobial therapy in the morning, just treating her w ith Augmentin by mouth.
[2017-06-12] MEDS: HYDROcodone/Acetaminophen 5/325 mg Tablet PO PRN (20:04)
[2017-06-13] MEDS: HYDROcodone/Acetaminophen 5/325 mg Tablet PO PRN (02:58)
[2017-06-13] MEDS: Sodium Chloride 0.9% 1,000 ML IV SCH ×2 (03:00→08:45)
[2017-06-13] MEDS: Levothyroxine Sodium 125 MCG TAB PO SCH (05:49)
[2017-06-13] MEDS: Piperacillin/Tazobactam 3.375 GM in Sodium Chloride 0.9% 100 ML IVPB SCH (05:49)
--- NOTE | 2017-06-13 07:17 | PDOC.FM ---
- Subjective Subjective: CC: Feeling better HPI: Patient sitting on side of bed eating breakfast. States she feels much better. States she has come to terms with her diagnosis and is ok with going home with hospice care. States she would rather spend time with her new granddaughter than be stuck in the hospital. States she is concerned her family may not be in agreement with this decision. Informed her we could have a family meeting today to discuss end of life care with her family. She was in agreement. - Objective MAR Reviewed: Yes Vital Signs & Weight: Vital Signs (12 hours) Temp Pulse Resp BP Pulse Ox 06/13/17 03:28 96 06/13/17 03:07 98.4 F 99 18 124/77 96 06/12/17 20:00 98.3 F 95 16 117/71 93 L Weight Admit Weight 53.161 kg Weight 55.48 kg Most Recent Monitor Data Heart Rate from ECG 91 NIBP 98/62 I&O: 06/12/17 06/13/17 06/14/17 06:59 06:59 06:59 Intake Total 1320 350 Output Total 300 Balance 1020 350 Result Diagrams: 06/13/17 07:22 06/12/17 04:07 <Damian Rothman - Last Filed: 06/13/17 07:57> - Objective Vital Signs & Weight: Vital Signs (12 hours) Temp Pulse Resp BP Pulse Ox 06/13/17 11:20 98.8 F 92 18 132/86 96 06/13/17 08:00 98.6 F 99 16 96 06/13/17 07:45 98.6 F 99 16 121/78 96 06/13/17 03:28 96 06/13/17 03:07 98.4 F 99 18 124/77 96 Weight Admit Weight 53.161 kg Weight 55.48 kg Most Recent Monitor Data Heart Rate from ECG 91 NIBP 98/62 I&O: 06/12/17 06/13/17 06/14/17 06:59 06:59 06:59 Intake Total 1320 350 300 Output Total 300 Balance 1020 350 300 Result Diagrams: 06/13/17 07:22 06/12/17 04:07 <Jose Boudreaux - Last Filed: 06/13/17 14:40> Phys Exam - Physical Examination Constitutional: NAD HEENT: moist MMs, sclera anicteric Respiratory: no wheezing, clear to auscultation bilateral decreased breath sounds RLL Cardiovascular: RRR 2/6 systolic murmur. Appears to be chronic. Neurological: non-focal, moves all 4 limbs Psychiatric: normal affect, A&O x 3 Skin: no rash <Damian Rothman - Last Filed: 06/13/17 07:57> Dx/Plan (1) Acute respiratory failure with hypoxia Code(s): J96.01 - ACUTE RESPIRATORY FAILURE WITH HYPOXIA Status: Acute Plan: Improved with antibiotics and increase in oxygen. Likely 2/2 post obstructive process. - Will discuss custodial care with family today - palliative care has seen patient. family still resistant to hospice but patient is agreeable. (2) Sepsis Code(s): A41.9 - SEPSIS, UNSPECIFIED ORGANISM Status: Acute QualifierTitle: Sepsis type: sepsis due to unspecified organism Qualified Code(s): A41.9 - Sepsis, unspecified organism Plan: Zosyn/Levaquin day 3, Restarted zosyn since it fell off APR. Has had net positive 1 L fluid since admission - will switch to PO augmentin - plan to d/c home today. (3) Anemia Code(s): D64.9 - ANEMIA, UNSPECIFIED Status: Acute QualifierTitle: Anemia type: unspecified type Qualified Code(s): D64.9 - Anemia, unspecified Plan: s/p 1 U PRBCs repeat H&H improved (4) Volume depletion, extrarenal loss Code(s): E86.9 - VOLUME DEPLETION, UNSPECIFIED Status: Acute Plan: encourage PO intake. \ - d/c IV fluids. (5) Pulmonary venous thrombosis Code(s): I26.99 - OTHER PULMONARY EMBOLISM WITHOUT ACUTE COR PULMONALE Status : Acute Plan: Therapeutic lovenox - will switch to oral anticoagulant at time of D/C if patient is not going home on hospice. (6) Squamous cell carcinoma of lung, stage IV Code(s): C34.90 - MALIGNANT NEOPLASM OF UNSP PART OF UNSP BRONCHUS OR LUNG Status: Acute QualifierTitle: Laterality: unspecified laterality Qualified Code(s): C34.90 - Malignant neoplasm of unspecified part of unspecified bronchus or lung Plan: Will discuss palliative care with patient and family today. -Heme/Onc saw patient and recommended stopping chemo and starting hospice. (7) Thrombocytopenia Code(s): D69.6 - THROMBOCYTOPENIA, UNSPECIFIED Status: Acute Plan: monitor. currently at baseline. May need to switch anticoagulation if HIT becomes suspected. <Damian Rothman - Last Filed: 06/13/17 07:57> Attending Addendum - Attending Addendum Date/Time: 06/13/17 2861 I personally evaluated the patient and discussed the management with Dr. Rothman. I agree with the History, Examination, Assessment and Plan documented above with any addition or exceptions noted below. She feels much better. Alert and fully oriented x 4. Was sitting up on edge of bed eating breakfast. Lungs: distant breath sounds with dullness and absent breath sounds in the R-Post base. Cor: distant heart sounds. No murmur. A: Stage 4 squamous cell Ca lung. Obstructive pneumonia. P: Home today. Will arrange for Hospice Home Care as soon possible. Augmentin for 14 day course as outpatient. Out of hospital DNR signed by me. MD Bertram <Jose Boudreaux - Last Filed: 06/13/17 14:40>
[2017-06-13 07:31] LABS: Hemoglobin 8.7 g/dL (12.0-16.0); Platelet Count 55 thou/uL (130-400)
[2017-06-13 08:15] LABS: Anisocytosis SLIGHT = 6-15 cells (100X) (0-5/hpf); Band 28 % (5-11); Differential Comment Immature Cell(s); Large Platelets SLIGHT; Lymphocytes 14 % (21-51); MDiff Complete? YES; Mean Corpuscular HGB CONC 31.6 g/dL (32.0-36.0); Mean Corpuscular Hemoglobin 30.4 pg (27.0-31.0); Mean Corpuscular Volume 96.1 fl (81.0-99.0); Mean Platelet Volume 10.7 fL (7.4-10.4); Metamyelocyte 8 % (0-0); Monocytes 9 % (0-10); Myelocyte 6 % (0-0); Neutrophil 31 % (42-75); PLT Morphology Comment Appears Decreased; Platelet Clumps SLIGHT; Polychromasia SLIGHT = 2-3 cells (100X) (0-2/hpf); Promyelocytes 2 % (0-0); RBC Distribution Width 15.9 % (11.5-14.5); Reactive Lymphocytes 1 % (0-10); Red Blood Cell (RBC) Count 2.83 mill/uL (4.20-5.40); Vacuoles MODERATE; White Blood Cell (WBC) Count 25.3 thou/uL (4.8-10.8)
[2017-06-13] MEDS: Citalopram 20 MG TAB PO SCH (08:44)
[2017-06-13] MEDS: Hydroxychloroquine Sulfate 200 MG TAB PO SCH (08:44)
[2017-06-13] MEDS: Famotidine 20 MG TAB PO SCH (08:44)
[2017-06-13] MEDS: Enoxaparin Sodium 60 MG/0.6 ML SYRINGE SC SCH (10:50)
[2017-06-13 11:23] VITALS: BP 132/86; TEMP 98.8
--- NOTE | 2017-06-13 13:37 | DIS-2 ---
DATE OF ADMISSION: 06/11/2017 DATE OF DISCHARGE: 06/13/2017 RESIDENT: Damian Rothman M.D. ADMITTING ATTENDING: Jay Choudhary M.D. DISCHARGE ATTENDING: Jose Boudreaux M.D. CONSULTATIONS: 1. Dr. Franklyn Neves - Pulmonology/Critical Care. 2. Dr. New Marrero - Hematology/Oncology. IMAGING DATA: Chest x-ray 06/11/2017; a density in the right middle hemothorax with likely adjacent pleural fluid infection. PERTINENT LABORATORY FINDINGS: White blood cell count at the time of admission 27.0 with 6 bands trended down to 24.7 with 14% bands and then back up to 25.3 with 28% bands on day of discharge. CK-MB at the time of admission 9.0. Troponins were within the indeterminate range and trended down. Urinalysis was unremarkable. MICROBIOLOGY: Urine culture negative after 48 hours. Blood cultures negative after 48 hours. PRIMARY DIAGNOSES: 1. Postobstructive hospital-acquired pneumonia. 2. Stage IV squamous cell carcinoma of the lung. 3. Anemia of chronic disease. SECONDARY DIAGNOSES: 1. History of recent pulmonary embolism, on anticoagulation. 2. Sepsis - resolved. 3. Acute hypoxic respiratory failure, resolved. 4. Rheumatoid arthritis. 5. Hypothyroidism. 6. Hyperlipidemia. 7. Thrombocytopenia. DISCHARGE MEDICATIONS: 1. Augmentin 875/125 mg 1 tab q.12 hours to be taken for 14 days. 2. Eliquis 5 mg, take 2 tablets by mouth twice daily for 7 days and then decrease to 1 tablet by mouth twice daily. 3. [place] 5/325 every 6 hours as needed. No prescription was sent at this time. 4. Ranitidine 150 mg b.i.d. 5. Tizanidine 4 mg twice daily as needed. 6. Plaquenil 200 mg daily. 7. Seroquel 200 mg daily. 8. Synthroid 125 mcg daily. 9. Diclofenac 50 mg twice daily. 10. Tylenol 650 mg q.6 hours as needed. 11. Zofran 4 mg every 4 hours as needed. DISCONTINUED MEDICATIONS: Lovenox 60 mg subcutaneous q.12 hours. HISTORY OF PRESENT ILLNESS AND HOSPITAL COURSE: Ms. Reed is a pleasant but unfortunate 71-year-old -[place] female who presented to the ER per the request of Dr. Louis. The patient is on home oxygen and had required increased volumes due to feeling ill. In the office, the patient was agreeable to hospice, but family still had reservations. She was seen and evaluated in the ER, started on vancomycin, Levaquin and Zosyn. The patient was initially admitted to the [facility] given her frailty. She improved overnight and decreased her oxygen requirement back to baseline of [address] Marrero from Oncology came by to see the patient. Dr. Marrero felt that the patient had performed very poorly on chemotherapy and felt that the patient would not likely benefit from cancer treatment and should start hospice immediately. The patient was agreeable to this, but the family was still resistance. A family discussion was had on 06/13/2017. At this time, the patient made very clear to her family that she wanted comfort measures only and to be able to go home and spend time with her granddaughter with as much time as she has left. At this time, the family was agreeable to palliative care. The patient's IV antibiotics were discontinued and she was placed on oral Augmentin and will be treated for 14 days as this has provided her significant symptomatic relief. An out of hospital DNR was completed prior to discharge. The family decided to go with [facility] as their hospice provider. They were given a phone number and they were instructed to call and set up an admission visit. The patient is seen at [facility] and the clinic will provide assistance to the family as needed to arrange hospice. The patient was switched to an oral anticoagulant per Dr. Neves's recommendation prior to discharge. It is felt that the pill will be more comfortable and less inconvenient for the patient. Family and patient were in agreement with this. Vital signs at the time of discharge were stable. The patient was at baseline oxygen requirement. DISPOSITION: The patient was discharged home and currently stable, but long- term prognosis is guarded. DISCHARGE INSTRUCTIONS: 1. Location: Home with hospice. 2. Diet: Regular. No restrictions. 3. Activity: As tolerated. 4. Followup: The patient is to follow up with her primary care physician, Dr. Marcos Manriquez within 1 week of discharge. She is to follow up with [facility] for home care. Again, an out of hospital DNR was signed prior to discharge. Greater than 30 minutes were spent on this discharge preparing discharge materials and coordinating outpatient care and discussing care with the family care and care goals with the family. KAVEH
--- NOTE | 2017-06-13 15:07 | PRG ---
DATE OF SERVICE: 06/13/2017 She is stable. Blood pressure 132/86. She is afebrile, heart rate 92, respiratory rate is 18. I suspect she is adequately hydrated. She has 8% metamyelocytes on her peripheral smear which is a concern. Apparently, she has been discharged home. Her CBC will need to be followed up. If any more treatmen t is planned, my understanding was that hospice was to be involved.
== END 2017-06-13 14:45 | disposition hospice, home (50) | DRG 871 ==
LOC: ERS 12:38 → IMCU/EMU 15:36 → T4-A 06-12 15:53
PROVIDERS: ADMIT Family Medicine; ATTEND Family Medicine
PROC: 30233N1 Transfusion of Nonautologous Red Blood Cells into Peripheral Vein, Percutaneous Approach (ICD-10-PCS; principal; 2017-06-11)
DX: A41.9 Sepsis, unspecified organism (principal); J96.01 Acute respiratory failure with hypoxia; I26.99 Other pulmonary embolism without acute cor pulmonale; J18.9 Pneumonia, unspecified organism; R64 Cachexia; D69.6 Thrombocytopenia, unspecified; Z99.81 Dependence on supplemental oxygen; C34.91 Malignant neoplasm of unspecified part of right bronchus or lung; J44.0 Chronic obstructive pulmonary disease with (acute) lower respiratory infection; D63.0 Anemia in neoplastic disease; E86.0 Dehydration; Z51.5 Encounter for palliative care; M06.9 Rheumatoid arthritis, unspecified; E03.9 Hypothyroidism, unspecified; E78.5 Hyperlipidemia, unspecified; F32.9 Major depressive disorder, single episode, unspecified; R62.7 Adult failure to thrive; Z68.22 Body mass index [BMI] 22.0-22.9, adult; Y95 Nosocomial condition; Z87.891 Personal history of nicotine dependence; Z86.711 Personal history of pulmonary embolism; Z88.5 Allergy status to narcotic agent; Z79.899 Other long term (current) drug therapy
CPT/HCPCS: 36415; 36430; 51701; 71046; 80053; 81003; 81015; 82550; 82553; 83605; 83880; 84145; 84484; 85025; 85610; 85730; 86850; 86900; 86901; 87040; 87086; 96361; 96365; A4353; G8978-GP-CM; G8979-GP-CK; J1650; J2543; J3370; J7050; P9016

== ENCOUNTER 2017-06-30 08:32 | Emergency (ER) | payer MEDICARE, MEDICAID ==
[2017-06-30] MEDS ORDERED: Ondansetron ODT 8 MG TAB ONE (09:24)
[2017-06-30] MEDS ORDERED: Morphine 4 MG/ML VIAL ONE (09:24)
--- NOTE | 2017-06-30 11:10 | RAD ---
ONE VIEW CHEST: COMPARISON: 05/21/17. History Trauma. The patient fell this morning. FINDINGS: Portable semiupright chest demonstrates persistent diminished lung volume of the right hemithorax. S table configuration of the cardiac silhouette which is partially obscured. Slight elongation of the aorta. No evidence of pneumothorax. No definite osseous abnormality. IMPRESSION: Persistent opacification right hemithorax. POS: [facility]
--- NOTE | 2017-06-30 11:29 | CT ---
CT CERVICAL SPINE PERFORMED WITHOUT CONTRAST ENHANCEMENT: History: Fall this morning with neck pain and bruising along the left side of face. FINDINGS: The vertebral bodies are normal in height. There are degenerative changes along the course of the spi ne. There is disc narrowing that is most pronounced at C5-6 and C6-7. There is minimal retrolisthesis at both of these levels. Motion artifact does slightly degrade detail. I do not appreciate any signs of significant canal or foraminal stenosis. There is normal alignment of the facet joints. Bilateral carotid bulb calcifications are noted and vertebral artery calcifications are also seen. Th e lung apices appear clear of any infiltrative process. There appear to be some emphysematous change. IMPRESSION: No CT evidence for fracture of the cervical spine. POS: [facility]
--- NOTE | 2017-06-30 11:43 | CT ---
CT BRAIN NONCONTRAST: DATE: 06/30/17. TIME: 9:58 a.m. HISTORY: A 71-year-old female status post acute head trauma from fall. Dr. Nunn reported the findings by telephone to Nurse Practitioner Ramy at 10:06 a.m. on 06/30/17. COMPARISON: 04/26/17. FINDINGS: There is a new finding of a large right frontotemporoparietal subdural hematoma, with mixed densities : Diffuse low-attenuation component intermixed with large multifocal hyperdense acute components. R egion of greatest transverse diameter of the hematoma is 23 mm. There is one temporal component that is questionable for an epidural hematoma in addition to the subdural hematomas. There are low-densi ty regions within the hyperdense areas, questionable for active hemorrhaging. This compresses the ri ght cerebral hemisphere, and compresses and distorts the bilateral lateral ventricles. There is righ t-to-left midline shift of the septum pellucidum by 14 mm. There is diffuse effacement of sulci of t he bilateral cerebral hemispheres, right worse than left. There is also a moderate-sized acute subdural hematoma along the left side of the tentorium cerebelli . The perimesencephalic cistern is partially effaced, especially anteriorly, where there is compress ion in the transverse dimension of the cerebral peduncles. No acute calvarial fracture is identified. There is a moderately large right frontotemporal scalp he matoma. IMPRESSION: 1. Large right frontotemporoparietal acute on chronic subdural hematoma causing somewhat severe mass effect, with 14 mm subfalcine herniation and early uncal herniation. 2. Acute, traumatic subdural hematoma along the left tentorium cerebelli. 3. Acute, traumatic moderately large right frontotemporal scalp hematoma. CODE CR JN R POS: [facility]
--- NOTE | 2017-06-30 11:48 | CT ---
CT FACIAL BONES WITH CORONAL AND SAGITTAL REFORMATIONS: HISTORY: Fall, bruised left side of face, left facial swelling. FINDINGS/IMPRESSION: There is minimal diastasis of the left zygomaticomaxillary suture with adjacent soft tissue swelling. The remainder of the facial bones are otherwise intact. No temporomandibular dislocation is identi fied. No air fluid levels are seen in the paranasal sinuses. POS: [facility]
== END 2017-06-30 12:58 | disposition home or self-care (01) ==
LOC: ERS 08:32
DX: S06.5X0A Traumatic subdural hemorrhage without loss of consciousness, initial encounter (principal); S06.4X0A Epidural hemorrhage without loss of consciousness, initial encounter; K21.9 Gastro-esophageal reflux disease without esophagitis; M06.9 Rheumatoid arthritis, unspecified; E78.5 Hyperlipidemia, unspecified; I10 Essential (primary) hypertension; F32.9 Major depressive disorder, single episode, unspecified; F17.210 Nicotine dependence, cigarettes, uncomplicated; W19.XXXA Unspecified fall, initial encounter
CPT/HCPCS: 70450; 70486; 71045; 72125; 93005; 96372; J2270